=== PATIENT | female | born 1980 | race Caucasian/White ===

== ENCOUNTER 2017-11-16 20:21 | Emergency (ER) | payer BC, SELFPAY ==
[2017-11-16 20:22] VITALS: BP 121/67; PULSE 90; RESP 20; TEMP 36.2; O2SAT 96; BMI 29.2
--- NOTE | 2017-11-16 22:05 | NURSING ---
2131 PT APPROACHED THE TRIAGE DESK AND SPOKE WITH THIS RN. SHE STATED SHE WAS STARTING TO FEEL BETTER AND WAS ABLE TO KEEP SOME TEA DOWN. PT ENCOURAGE TO WAIT FOR ED ROOM TO BE EVALUATED BY A DOCTOR. PT STATED SHE WAS JUST GOING TO FOLLOW UP WITH HER PRIMARY CARE DOCTOR IN THE MORNING. PT ENCOURAGED IF CONDITIONED WORSENED OR IF SHE CHANGED HER MIND TO PLEASE COME BACK TO BE EVALUATED SOON POSSIBLE. PT AMBULATED OUT TO CAR.
== END 2017-11-16 21:33 | disposition left against medical advice (07) ==
LOC: ED 22:40
PROVIDERS: Emergency Provider Emergency Medicine; Family Provider Family Medicine; PCP Family Medicine
DX: R11.2 Nausea with vomiting, unspecified (principal)

== ENCOUNTER → 2018-03-23 11:06 | Outpatient (CLI) | payer BC, SELFPAY ==
[2018-03-29 10:49] LABS: HPV Reflexed? NOT INDICATED
== END ==
PROVIDERS: Visit Provider Obstetrics & Gynecology
DX: Z12.4 Encounter for screening for malignant neoplasm of cervix (principal)
CPT/HCPCS: 88175; G0145

== ENCOUNTER → 2019-10-18 07:42 | Outpatient (CLI) | payer BC, SELFPAY ==
--- NOTE | 2019-10-17 17:12 | BI_ITS ---
MAMMOGRAPHY - BILATERAL SCREENING REASON FOR EXAM: Female, 39 years old. Routine annual screening examination. PERTINENT HISTORY: Non-contributory. Bilateral breast implants. TECHNIQUE: Digital bilateral breast will (3D mammographic acquisition) in the CC and MLO projections. 2-D mediolateral oblique (MLO) and craniocaudad (CC) views of both breasts were obtained. CAD: Full Field Digital Mammography with Computer Added Detection was performed. COMPARISON: None. Baseline examination. FINDINGS: Breast Composition: The breasts are heterogeneously dense, which may obscure small masses. There are no dominant masses or suspicious calcifications. Bilateral breast implants are seen. No other significant abnormalities are identified. BI/SCREEN MAMM (CAD) W/WILL BILAT IMPRESSION: Negative screening mammogram. Yearly followup mammogram recommended. (A) ASSESSMENT CATEGORY: BIRADS Category 2: Benign. A letter regarding these results will be sent to the patient by the facility within 30 days. Approximately 10% of breast cancers are not detected by mammography. A normal mammogram should not delay biopsy of a clinically suspicious abnormality. [id number] Electronically Signed: Kenny Veliz, at 8:45 EST , Service support ,
== END ==
PROVIDERS: Family Provider Family Medicine; PCP Family Medicine; Referring Provider Obstetrics & Gynecology; Visit Provider Obstetrics & Gynecology
DX: Z12.31 Encounter for screening mammogram for malignant neoplasm of breast (principal)
CPT/HCPCS: 77063; 77067

== ENCOUNTER → 2020-09-23 | Outpatient (CLI) | payer BC, SELFPAY ==
[2020-09-26 03:06] LABS: Chlamydia By Nucleic Acid AMP Negative (Negative)
[2020-09-26 12:32] LABS: Gonococcus By Nucleic Acid AMP Negative (Negative)
[2020-09-26 12:36] LABS: HPV Reflexed? NOT INDICATED
[2020-09-27 06:08] LABS: HSV 1 By PCR Negative (Negative)
[2020-09-27 07:47] LABS: HSV 2 By PCR Negative (Negative)
== END | disposition home or self-care (01) ==
LOC: LABSPEC 13:48
PROVIDERS: PCP Family Medicine; Visit Provider Student in an Organized Health Care Education/Training Program
DX: Z12.4 Encounter for screening for malignant neoplasm of cervix (principal); Z11.3 Encounter for screening for infections with a predominantly sexual mode of transmission; R30.0 Dysuria
CPT/HCPCS: 87086; 87088; 87491; 87529; 87591; 88175; G0145

== ENCOUNTER → 2020-10-10 | Outpatient (CLI) | payer BC, SELFPAY | END | disposition home or self-care (01) | LOC: LABSPEC 17:03 | PROVIDERS: PCP Family Medicine; Visit Provider Obstetrics & Gynecology | DX: R30.0 Dysuria (principal) | CPT/HCPCS: 87086; 87088; 87186 ==

== ENCOUNTER 2020-10-12 19:16 | Emergency (ER) | payer BC, SELFPAY ==
[2020-10-12 19:16] VITALS: BP 116/73; PULSE 91; RESP 20; TEMP 36.6; O2SAT 98; BMI 26.6
--- NOTE | 2020-10-12 19:31 | CT_ITS ---
STUDY: CT ABDOMEN AND PELVIS WITHOUT CONTRAST REASON FOR EXAM: Female, 40 years old. RT FLANK PAIN/DYSURIA/FREQUENCY/BEING TREATED FOR UTI. Hx of kidney stones RADIATION DOSAGE (If Supplied By Facility): CTDIvol = ( 6.23 ) mGy, DLP = ( 287.73 ) mGycm TECHNIQUE: Transaxial images were obtained from the dome of the diaphragm to the symphysis pubis without oral contrast, and without intravenous contrast. Sagittal and coronal images were reconstructed. Individualized dose optimization techniques were used for this CT. COMPARISON: 02/24/2015. FINDINGS: Left lower lobe granuloma. Lung bases are otherwise clear. Heart size is normal. The liver is unremarkable. The gallbladder is unremarkable. The spleen and pancreas are unremarkable. The adrenal glands are normal. Normal left kidney. Effacement of normal right renal sinus fat may indicate trace hydronephrosis. Trace perinephric stranding. The right kidney is otherwise unremarkable. Trace right hydroureter. No obstructing stone is seen. The aorta is normal in caliber. There is no free fluid, free air or organized collection. No bowel obstruction or inflammatory change. Normal appendix. Urinary bladder is unremarkable. Hyperdensities inferior to the bladder, question hemorrhagic vaginal cysts. Normal abdominal wall. Normal osseous structures. CT/Abdomen/Pelvis without Cont IMPRESSION: 1. Trace right hydroureteronephrosis without demonstrated stone. Consider small, nonopaque or passed stone. 2. Mild hyperdense lesions inferior to the bladder, uncertain etiology. Question complex vaginal cysts. Correlate with pelvic examination. These lesions are not likely to be readily demonstrated on ultrasound. Electronically Signed: Melly Kaur MD at 20:46 EST Tel , Service support ,
--- NOTE | 2020-10-12 19:33 | ED.DCSUM_ITS ---
History of Present Illness Chief Complaint: Complaint Informant: Patient Onset: Weeks Context: Gradual Onset Current Severity: Moderate Maximum Severity: Moderate Narrative: Patient presents with a 3-week history of dysuria and frequency that has now progressed into right flank pain. She states when she first got sick her urinalysis did not reveal any infection. She was seen again for repeat urinalysis 2 days ago which did reveal UTI and she was started on nitrofurantoin and Pyridium. Patient presents tonight stating that she has had very minimal if any improvement. - Past Medical History (1) Anxiety Status: Chronic (2) Colitis Status: Resolved Comment: Status post colonoscopy, nonspecific, suspected ischemic due to episodes of hypotension Past Medical History - Allergies and Home Meds Allergies/Adverse Reactions: Allergies garlic Allergy (Verified 10/12/20 19:19) Swelling Primary Care Physician: Rusty Wilkerson MD [Primary Care Provider] - Prior records reviewed: Yes Surgical History: - - tubal ligation, bilateral breast implants, bladder sling, uterine ablation Smoking Status: Current every day smoker Review of Systems General: Reports: Fever, Subjective Eyes: Denies: Visual changes - bilaterally ENT: Denies: Bilateral ear pain Cardiovascular: Denies: Chest pain Respiratory: Denies: Dyspnea Gastrointestinal: Reports: Abdominal pain - Right flank pain. Denies: Vomiting, Diarrhea Genitourinary: Reports: Dysuria, Frequency Musculoskeletal: Reports: Back pain - Right flank Skin: Denies: Rash Neurological: Denies: Headache Hematologic: Denies: Easy bruising, Easy bleeding Allergy: Denies: Uticaria Physical Exam Vital Signs/Narrative: Vital Signs Temp Pulse Resp BP Pulse Ox 10/12/20 19:16 97.8 F 91 20 H 116/73 98 Inital Vital Signs reviewed: Yes General: Well nourished, Well developed Head: Normocephalic Neck: Supple Cardiovascular: Regular rate, Regular rhythm Respiratory: No distress, CTA bilaterally Abdomen: Soft, Tender - Mild suprapubic tenderness. Back: CVA tenderness - Moderate right CVA tenderness. Extremities: Nontender Skin: Normal color Neurological: Alert, Oriented x3 Psychological: - - Anxious Diagnostic/Tx/Re-eval Impressions Abdomen/Pelvis CT 10/12/20 19:31 IMPRESSION: 1. Trace right hydroureteronephrosis without demonstrated stone. Consider small, nonopaque or passed stone. 2. Mild hyperdense lesions inferior to the bladder, uncertain etiology. Question complex vaginal cysts. Correlate with pelvic examination. These lesions are not likely to be readily demonstrated on ultrasound. Electronically Signed: Melly Kaur MD at 20:46 EST Tel , Service support , 10/12/20 19:31 Abdomen/Pelvis without Cont [CT] Stat Laboratory Results 10/12/20 10/12/20 10/12/20 19:25 19:25 19:44 WBC 10.6 RBC 3.61 L Hgb 11.1 L Hct 32.3 L MCV 89.5 MCH 30.7 MCHC 34.4 RDW Std Deviation 40.7 RDW Coeff of Marian 12.3 Plt Count 240 MPV 10.0 Immature Gran % (Auto) 0.300 Neut % (Auto) 83.3 H Lymph % (Auto) 7.9 L [place] % (Auto) 8.0 Eos % (Auto) 0.3 Baso % (Auto) 0.2 Absolute Neuts (auto) 8.8 H Absolute Lymphs (auto) 0.83 Nucleated RBC % 0 Sodium Potassium Chloride Carbon Dioxide Anion Gap BUN Creatinine Estim Creat Clear Calc Est GFR (MDRD) Af Amer Est GFR (MDRD) Non-Af BUN/Creatinine Ratio Glucose Calcium Urine Color Breanna Urine Clarity Clear Urine pH 7.0 Ur Specific [place] 1.005 Urine Protein 30 H Urine Glucose (UA) Normal Urine Ketones Negative Urine Occult Blood 50 H Urine Nitrite Positive H Urine Bilirubin 6 H Urine Urobilinogen 12 H Ur Leukocyte Esterase 500 H Urine RBC 0 SEEN Urine WBC 0-5 SEEN Ur Squamous Epith Cells 5-10 SEEN Urine Bacteria RARE Urine Mucus 0 SEEN Urine Test Negative 10/12/20 19:44 WBC RBC Hgb Hct MCV MCH MCHC RDW Std Deviation RDW Coeff of Marian Plt Count MPV Immature Gran % (Auto) Neut % (Auto) Lymph % (Auto) Stone % (Auto) Eos % (Auto) Baso % (Auto) Absolute Neuts (auto) Absolute Lymphs (auto) Nucleated RBC % Sodium 138 Potassium 3.1 L Chloride 105 Carbon Dioxide 25.0 Anion Gap 8 BUN 7 Creatinine 0.79 Estim Creat Clear Calc 67.31 Est GFR (MDRD) Af Amer 103 Est GFR (MDRD) Non-Af 85 BUN/Creatinine Ratio 8.8 L Glucose 123 H Calcium 8.8 Urine Color Urine Clarity Urine pH Ur Specific [place] Urine Protein Urine Glucose (UA) Urine Ketones Urine Occult Blood Urine Nitrite Urine Bilirubin Urine Urobilinogen Ur Leukocyte Esterase Urine RBC Urine WBC Ur Squamous Epith Cells Urine Bacteria Urine Mucus Urine Test - Medical Decision Making Patient was given morphine and Zofran along with a liter of IV fluids. Blood work is reviewed with her. Potassium is slightly low at 3.1 and this is replaced orally. Urinalysis does still show signs of infection. CT flank reveals trace hydroureteronephrosis on the right without a demonstrated stone. There is trace perinephric stranding. I think this likely represents pyelonephritis rather than a recently passed kidney stone. The urine culture from the is reviewed. Well nitrofurantoin should work for her infection, this is not appropriate for pyelonephritis treatment. She will be switched to ciprofloxacin as she does have a Bactrim allergy. She be given a dose of IV Rocephin in the emergency room tonight for treatment. ED Disposition - Plan for ED Patient: Disposition: Home or Assisted Living Diagnosis: Pyelonephritis Instructions: ED Pyelonephritis, Female (Adult) Prescriptions: Ciprofloxacin [Cipro] 500 mg PO BID #14 tab Transmission Status: Pending to [facility] Hydrocodone Bitart/Apap 5-325 [[place] 5MG-325MG] 1 tablet PO Q6H PRN PRN 3 Days #10 tablet PRN Reason: Pain Transmission Status: Sent to [facility] Referrals: Rusty Wilkerson MD [Primary Care Provider] - 3-5 Days if not improving
[2020-10-12 19:41] LABS: Internal QC Validated? YES +Cl - CLEAR BKGD; Pregnancy, Urine Negative Negative
[2020-10-12] MEDS: Ondansetron 4 MG/2 ML Vial IV (19:44)
[2020-10-12] MEDS: Morphine 4 MG/ML Syringe IV (19:44)
[2020-10-12] MEDS: 0.9% Normal Saline 1,000 ML 1000 ML IV (19:44)
[2020-10-12 19:45] LABS: Mucous, Urine 0 SEEN /hpf (<or=2+); Red Blood Cells-Urine 0 SEEN /hpf (0-5)
[2020-10-12 19:47] LABS: Color, Urine Amber (Yellow); Glucose, Dipstick Normal (Normal); Ketone-Dipstick Negative (Negative); Leukocyte Esterase-Dipstick 500 /ul (Negative); Nitrite-Dipstick Positive (Negative); Occult Blood-Urine 50 /ul (Negative); Protein-Dipstick 30 mg/dl (Negative); Specific Gravity, Urine 1.005 (1.002-1.030); Urine Clarity Clear (Clear); Urine Urobilinogen 12 mg/dl (Normal)
[2020-10-12 19:49] LABS: Absolute Lymphocyte Count 0.83 X10^3/uL (0.83-4.51); Absolute Neutrophil Count 8.8 X10^3/uL (2.0-7.7); Basophil# 0.02 X10^3/uL; Basophil% 0.2 % (0-1); Eosinophil# 0.03 X10^3/uL; Eosinophils% 0.3 % (0-5); Hematocrit 32.3 % (37-47); Hemoglobin 11.1 g/dL (12.0-15.0); Lymphocyte # 0.83 X10^3/ul (4.0); Lymphocyte % 7.9 % (19-41); Mean Corp Hgb Conc 34.4 g/dL (32-36); Mean Corpuscular Hgb 30.7 pg (27.0-32.0); Mean Corpuscular Volume 89.5 fL (81-99); Monocyte# 0.84 X10^3/uL; NRBC Flagged by Analyzer 0 % (0-5); Neutrophil # 8.81 X10^3/uL (2.7-7.7); Neutrophil % 83.3 % (47-70); Platelet Count 240 K/mm3 (150-450); RBC Distribution Width CV 12.3 % (11.6-14.6); RBC Distribution Width SD 40.7 fl (35.1-43.9); Red Blood Count 3.61 M/mm3 (4.2-5.4); White Blood Count 10.6 K/mm3 (4.4-11.0)
[2020-10-12 19:49] LABS: Urine Bilirubin Dipstick 6 mg/dL (Negative)
[2020-10-12 19:56] LABS: Bacteria RARE /hpf (None Seen); Squamous Epithelial Cells - UA 5-10 SEEN /hpf (5-10); White Blood Cells 0-5 SEEN /hpf (0-5)
[2020-10-12 20:04] LABS: Anion Gap 8 (5-15); BUN 7 mg/dL (7-18); BUN/Creat Ratio 8.8 RATIO (10-20); Calcium,Total 8.8 mg/dL (8.5-10.1); Chloride 105 mmol/L (98-107); Creatinine, Serum 0.79 mg/dL (0.55-1.02); EST Glomerular Filtration Rate 85 mL/min (>60); Est Glom Filt Rate - Afr Amer 103 mL/min (>60); Estimated Creatinine Clearance 67.31 ml/min; Glucose 123 mg/dL (74-106); Potassium 3.1 mmol/L (3.5-5.1); Sodium Level 138 mmol/L (136-145)
[2020-10-12] MEDS: Ceftriaxone 1 GM/50 ML BAG IV (20:59)
[2020-10-12] MEDS: HYDROcodone Bitartrate/Apap 5/325 Tablet PO (21:35)
[2020-10-12 21:39] VITALS: BP 105/63; PULSE 76; RESP 16; O2SAT 96
== END 2020-10-12 21:57 | disposition home or self-care (01) ==
PROVIDERS: Emergency Provider Emergency Medicine; PCP Family Medicine
DX: N12 Tubulo-interstitial nephritis, not specified as acute or chronic (principal); N13.6 Pyonephrosis; E87.6 Hypokalemia; F41.9 Anxiety disorder, unspecified; F17.200 Nicotine dependence, unspecified, uncomplicated; Z79.899 Other long term (current) drug therapy
CPT/HCPCS: 74176; 80048; 81001; 81025; 85025; 96361; 96365; 96375; 99283; J7030; J7050; A4216; J2405

== ENCOUNTER → 2020-10-21 07:01 | Outpatient (CLI) | payer BC, SELFPAY ==
[2020-10-12 19:16] VITALS: BMI 26.6
--- NOTE | 2020-10-21 07:04 | BI_ITS ---
MAMMOGRAPHY - BILATERAL SCREENING REASON FOR EXAM: Female, 40 years old. Routine annual screening examination. PERTINENT HISTORY: Non-contributory. Bilateral breast implants. TECHNIQUE: Digital bilateral breast will (3D mammographic acquisition) in the CC and MLO projections. 2-D mediolateral oblique (MLO) and craniocaudad (CC) views of both breasts were obtained. CAD: Full Field Digital Mammography with Computer Added Detection was performed. COMPARISON: Comparison is made with prior study dated 10/17/2019 FINDINGS: Breast Composition: The breasts are heterogeneously dense, which may obscure small masses. There are no dominant masses or suspicious calcifications. Stable benign-appearing breast implants. No other significant abnormalities are identified. There has been no significant change since the prior study. BI/SCRN MAMM (CAD)W/WILL BILAT IMPRESSION: Stable bilateral screening mammogram. Yearly follow-up mammogram recommended. (A) ASSESSMENT CATEGORY: BIRADS Category 2: Benign. A letter regarding these results will be sent to the patient by the facility within 30 days. Approximately 10% of breast cancers are not detected by mammography. A normal mammogram should not delay biopsy of a clinically suspicious abnormality. [id number] Electronically Signed: Kenny Veliz MD at 8:13 EST , Service support ,
== END ==
PROVIDERS: PCP Family Medicine; Referring Provider Student in an Organized Health Care Education/Training Program; Visit Provider Student in an Organized Health Care Education/Training Program
DX: Z12.31 Encounter for screening mammogram for malignant neoplasm of breast (principal)
CPT/HCPCS: 77063; 77067

== ENCOUNTER 2021-06-19 01:03 | Emergency (ER) | payer BC, SELFPAY ==
[2021-06-19 01:04] VITALS: BP 122/78; PULSE 75; RESP 20; TEMP 36.6; O2SAT 100; BMI 26.9
--- NOTE | 2021-06-19 01:12 | RAD_ITS ---
STUDY: X-RAY CHEST REASON FOR EXAM: Female, 41 years old. cp TECHNIQUE: Single AP portable view of the chest. COMPARISON: 09/04/2013. FINDINGS: There are no confluent pulmonary infiltrates. There is mild interstitial prominence in the mid and lower lung allen with bronchial wall thickening. There is no demonstrated pleural abnormality. Normal size heart. Normal mediastinum and viktoriya. Normal visualized aortic arch and descending thoracic aorta. There are no demonstrated acute fractures or destructive bone lesions. There is no demonstrated abnormality of the visualized soft tissue structures of the upper abdomen. RAD/Chest 1 View (Portable) IMPRESSION: Mild interstitial prominence with bronchial wall thickening bilaterally. No demonstrated pulmonary consolidation. Electronically Signed: Gilmer Trivedi MD at 2:22 EDT , Service support ,
--- NOTE | 2021-06-19 01:13 | EKG12_ITS ---
Test Reason : CP Blood Pressure : / mmHG Vent. Rate : 074 BPM Atrial Rate : 074 BPM P-R Int : 162 ms QRS Dur : 090 ms QT Int : 392 ms P-R-T Axes : 052 061 065 degrees QTc Int : 435 ms Normal sinus rhythm Normal ECG Confirmed by HARIKA CASTRO, ARNAUD ([id number]), assignment desk editor HARVINDER JIMÉNEZ ([id number]) on 06/20/2021 1:20:42 PM Referred By: FRANCIS Confirmed By:JACOB SHABAZZ MD
--- NOTE | 2021-06-19 01:14 | EX.ED.DYSGE1 ---
HPI History of Present Illness Chief Complaint: Chest Pain Informant: patient Onset/Context/Timing Onset: Hours (3-hour) Context: Sudden Onset Current Severity: Severe Maximum Severity: Severe Narrative Narrative: Patient presents with 3-hour history of lower sternal/epigastric pain. Patient states the pain is sharp and constant pressure that radiates through to her back. She does feel short of breath. She reports pain was rather sudden onset that occurred about 3 hours after she last ate. She denies similar symptoms. [facility] Medical History Abnormal Pap smear of cervix Anxiety Released Bladder Sling (~2014) Home Medications bupropion HCl 300 mg PO DAILY 09/04/13 [History Last Taken 07/31/15 04:00] epinephrine 0.3 mg IM PRN PRN 09/04/13 [History Last Taken 04/18/15 0.3 MG] paroxetine HCl [Paxil] 60 mg PO DAILY 09/04/13 [History Last Taken 07/31/15 04:00] hydrocodone-acetaminophen 1 tab PO Q6H PRN 3 Days #10 tab 06/19/21 [Rx Last Taken Unknown] metoclopramide HCl [Reglan] 10 mg PO Q6H PRN #10 tab 06/19/21 [Rx Last Taken Unknown] omeprazole magnesium [Prilosec OTC] 20 mg PO DAILY #20 tab 06/19/21 [Rx Last Taken Unknown] Allergy/AdvReac Type Severity Reaction Status Date / Time garlic Allergy Swelling Verified 06/19/21 01:07 Family History Mother Colon cancer Surgical History H/O dilation and curettage (~05/24/14) H/O LEEP (~01/29/09) H/O tubal ligation (~03/2004) Social History adopted: No household members: family housing: house number of children: 3 current occupational status: employed current occupation: [employer] Smoking Status: Current every day smoker tobacco type: cigarettes additional social history: Eric (retired) ROS ROS ED Constitutional Constitutional ED: Denies chills or fever(s) Eyes Eyes: Denies change in vision ENT ENT ED: Denies sore throat Cardiovascular Cardiovascular: Reports chest pain Respiratory/Chest Respiratory/Chest: Reports dyspnea; Denies cough Gastrointestinal Gastrointestinal: Reports abdominal pain; Denies diarrhea, nausea or vomiting Genitourinary Genitourinary ED: Denies dysuria Musculoskeletal Musculoskeletal: Reports back pain Integumentary Denies rash Neurologic Neurologic: Denies headache(s) or weakness Allergic/Immunologic Allergic/Immunologic ED: Denies urticaria EXAM Physical Exam Const Vital Signs: 06/19/21 01:04 06/19/21 01:09 06/19/21 02:46 Temperature 98 F Temperature Source Oral Pulse Rate 75 88 Respiratory Rate 20 H 16 Respiratory Effort Normal Non-Labored Blood Pressure 122/78 H 122/76 H Blood Pressure Mean 92 91 Pulse Ox 100 98 Oxygen Delivery Method Room Air Room Air 06/19/21 03:33 06/19/21 04:13 Temperature Temperature Source Pulse Rate 85 75 Respiratory Rate 14 12 Respiratory Effort Blood Pressure 149/78 H 121/78 H Blood Pressure Mean 101 92 Pulse Ox 97 95 Oxygen Delivery Method Room Air Room Air Positive well nourished and well developed General Appearance ED: well developed HEENT Reports normocephalic and head/scalp atraumatic Eyes PERRL and EOMs intact bilaterally Neck supple Chest Wall inspection of chest normal and palpation of chest normal Resp normal respiratory effort and clear to auscultation bilaterally Cardio regular rate and regular rhythm GI Auscultation: hypoactive bowel sounds Palpation: tender epigastric and RUQ Extremity normal to inspection Neuro oriented x3 and no sensory deficits noted Sensorium / Orientation: alert Motor Exam: strength 5/5 throughout Psych Mood & Affect: anxious Skin no rashes or lesions noted MDM MDM MDM Narrative Medical decision making narrative: EKG, chest x-ray, lab work obtained. Patient was given morphine and Zofran for pain control. Lab Data Attestation: I reviewed the patient's lab results. Labs: Laboratory Results - last 24 hr 06/19/21 06/19/21 06/19/21 01:19 01:19 01:19 WBC 13.7 H RBC 4.45 Hgb 13.9 Hct 40.3 MCV 90.6 MCH 31.2 MCHC 34.5 RDW Std Deviation 40.0 RDW Coeff of Marian 12.1 Plt Count 259 MPV 10.5 Immature Gran % (Auto) 0.300 Neut % (Auto) 75.2 H Lymph % (Auto) 19.9 [place] % (Auto) 4.1 Eos % (Auto) 0.3 Baso % (Auto) 0.2 Absolute Neuts (auto) 10.3 H Absolute Lymphs (auto) 2.74 Nucleated RBC % 0 D-Dimer Quant (PE/DVT) 0.41 Sodium 138 Potassium 3.6 Chloride 107 Carbon Dioxide 25.0 Anion Gap 6 BUN 15 Creatinine 0.86 Estim Creat Clear Calc 61.21 Est GFR (MDRD) Af Amer 93 Est GFR (MDRD) Non-Af 77 BUN/Creatinine Ratio 17.4 Glucose 121 H Lactic Acid Calcium 9.2 Total Bilirubin 0.40 Direct Bilirubin 0.20 AST 379 H ALT 130 H Alkaline Phosphatase 117 Troponin I High Sens 4 Total Protein 7.5 Albumin 3.5 Globulin 4.0 Lipase 141 Serum , Qual 06/19/21 06/19/21 01:19 02:40 WBC RBC Hgb Hct MCV MCH MCHC RDW Std Deviation RDW Coeff of Marian Plt Count MPV Immature Gran % (Auto) Neut % (Auto) Lymph % (Auto) [place] % (Auto) Eos % (Auto) Baso % (Auto) Absolute Neuts (auto) Absolute Lymphs (auto) Nucleated RBC % D-Dimer Quant (PE/DVT) Sodium Potassium Chloride Carbon Dioxide Anion Gap BUN Creatinine Estim Creat Clear Calc Est GFR (MDRD) Af Amer Est GFR (MDRD) Non-Af BUN/Creatinine Ratio Glucose Lactic Acid 1.7 Calcium Total Bilirubin Direct Bilirubin AST ALT Alkaline Phosphatase Troponin I High Sens Total Protein Albumin Globulin Lipase Serum , Qual NEGATIVE Radiography Chest X-Ray - ED: 1 View, Read by ED Physician, Normal, Heart, Lungs and Mediastinum Diagnostic Testing: Radiology Impression Chest X-Ray 06/19/21 01:12 IMPRESSION: Mild interstitial prominence with bronchial wall thickening bilaterally. No demonstrated pulmonary consolidation. Electronically Signed: Gilmer Trivedi MD at 2:22 EDT , Service support , Abdomen/Pelvis CT 06/19/21 02:00 IMPRESSION: 1.8 cm left adrenal nodule with indeterminate attenuation characteristics. There is no definite increase in size over the last 9 months, although there is increase in size compared to the 2015 exam. I would suggest follow-up exam in one year with adrenal protocol MRI or adrenal protocol CT scan. Previous tubal ligation. No evidence for acute pathology. Electronically Signed: Gilmer Trivedi MD at 3:32 EDT , Service support , ADDENDUM: 06/19/21 0441 IMPRESSION: Area of narrowing in the distal body the stomach probably represents a peristaltic wave rather than a stricture. Regardless, it is nonobstructive and is unlikely to contribute to the patient''s acute symptoms. Upper GI series might be used to confirm against fixed lesion, clinically warranted. No evidence for obstruction at the level of the pylorus. Distention of the stomach may be due to rapid consumption of a large meal prior to the exam. Possibility of gastroparesis cannot be excluded. Electronically Signed: Gilmer Trivedi MD at 4:34 EDT , Service support , EKG Initial EKG: Attestation: I personally reviewed and interpreted this EKG as follows: Interpretation: Sinus Rhythm (Sinus at 74 with no acute ischemia.) Treatment and Re-Evaluation Comments:: Portable chest x-ray per my interpretation is unremarkable. EKG reveals no ischemia. Lab work reveals mildly elevated white count at 13.7. D-dimer normal. Troponin negative. AST and ALT are elevated, but alk phos, bilirubins are normal. Lipase is normal. CT scan with IV contrast of the abdomen and pelvis obtained. The initial read on this reveals an adrenal nodule unchanged over the last 9 months. No other acute finding noted. When I reviewed the CT images her stomach appeared to be very distended and still full of material when patient states that she last ate approximately 8 hours prior to the study being done. There did appear to be some narrowing coming out of the stomach. We did ask for a addendum to be done on this. Radiologist feels that this area of narrowing represents peristalsis that was caught on the CT image. There is no wall thickening or edema to suggest acute mass or obstruction. This was all discussed with the patient at length. Pain is significantly improved at this time. Patient will have hepatitis panel drawn and discharged home. Return instructions provided. Patient is referred to GI for follow-up. Discharge Plan Triage Chief Complaint: Chest Pain ED Provider: Nettie Millan Dx/Rx/DC Orders Clinical Impression: Abdominal pain, epigastric, Transaminitis Instructions: ED Epigastric Pain Uncertain Cause Prescriptions: New hydrocodone-acetaminophen 5-325 mg tablet 1 tab PO Q6H PRN (Reason: pain) 3 Days Qty: 10 RF: 0 metoclopramide HCl [Reglan] 10 mg tablet 10 mg PO Q6H PRN (Reason: nausea and vomiting) Qty: 10 RF: 0 omeprazole magnesium [Prilosec OTC] 20 mg tablet,delayed release (DR/EC) 20 mg PO DAILY Qty: 20 RF: 0 No Action epinephrine 0.3 MG syringe 0.3 mg IM PRN PRN (Reason: Anaphylaxis) RF: 0 paroxetine HCl [Paxil] 40 MG tablet 60 mg PO DAILY RF: 0 bupropion HCl 300 MG tablet extended release 24 hr 300 mg PO DAILY RF: 0 Primary Care Provider: Rusty Wilkerson Referrals: Stone Sweeney DO [STAFF PHYSICIAN] - 1-2 Weeks Rusty Wilkerson MD [Primary Care Provider] - Disposition Disposition: Home, Self Care
[2021-06-19] MEDS: Ondansetron 4 MG/2 ML Vial IV (01:26)
[2021-06-19] MEDS: 0.9% Normal Saline 1,000 ML 150 ML IV (01:26)
[2021-06-19] MEDS: Morphine 4 MG/ML Syringe IV (01:27)
[2021-06-19 01:34] LABS: Absolute Lymphocyte Count 2.74 X10^3/uL (0.83-4.51); Absolute Neutrophil Count 10.3 X10^3/uL (2.0-7.7); Basophil# 0.03 X10^3/uL; Basophil% 0.2 % (0-1); Eosinophil# 0.04 X10^3/uL; Eosinophils% 0.3 % (0-5); Hematocrit 40.3 % (37-47); Hemoglobin 13.9 g/dL (12.0-15.0); Lymphocyte # 2.74 X10^3/ul (0.83-4.51); Lymphocyte % 19.9 % (19-41); Mean Corp Hgb Conc 34.5 g/dL (32-36); Mean Corpuscular Hgb 31.2 pg (27.0-32.0); Mean Corpuscular Volume 90.6 fL (81-99); Mean Platelet Vol. 10.5 fl (6.2-12.0); Monocyte# 0.56 X10^3/uL; Monocyte% 4.1 % (0-10); NRBC Flagged by Analyzer 0 % (0-5); Neutrophil # 10.33 X10^3/uL (2.7-7.7); Neutrophil % 75.2 % (47-70); Platelet Count 259 K/mm3 (150-450); RBC Distribution Width CV 12.1 % (11.6-14.6); Red Blood Count 4.45 M/mm3 (4.2-5.4); White Blood Count 13.7 K/mm3 (4.4-11.0)
[2021-06-19 01:44] LABS: Internal QC Validated? YES +Cl - CLEAR BKGD; Pregnancy, Serum, hCG Quali. NEGATIVE Negative
[2021-06-19 01:46] LABS: D-Dimer Quantitative (DVT/PE) 0.41 FEU/ug/m (0.27-0.49)
[2021-06-19 01:55] LABS: AST(SGOT) 379 U/L (15-37); Alanine Aminotransfer ALT/SGPT 130 U/L (13-56); Albumin, Serum 3.5 g/dL (3.2-5.0); Alkaline Phosphatase 117 U/L (45-117); Anion Gap 6 (5-15); BUN 15 mg/dL (7-18); BUN/Creat Ratio 17.4 RATIO (10-20); Calcium,Total 9.2 mg/dL (8.5-10.1); Chloride 107 mmol/L (98-107); Creatinine, Serum 0.86 mg/dL (0.55-1.02); EST Glomerular Filtration Rate 77 mL/min (>60); Est Glom Filt Rate - Afr Amer 93 mL/min (>60); Estimated Creatinine Clearance 61.21 ml/min; Glucose 121 mg/dL (74-106); Lipase 141 U/L (73-393); Potassium 3.6 mmol/L (3.5-5.1); Protein, Total 7.5 g/dL (6.4-8.2); Sodium Level 138 mmol/L (136-145); Troponin-I HS 4 pg/mL (3.0-54.0)
--- NOTE | 2021-06-19 02:00 | CT_ITS ---
STUDY: CT ABDOMEN AND PELVIS WITH CONTRAST REASON FOR EXAM: Female, 41 years old. abd pain RADIATION DOSAGE (If Supplied By Facility): CTDIvol = ( 11.61 ) mGy, DLP = ( 639.05 ) mGycm TECHNIQUE: Transaxial images were obtained from the dome of the diaphragm to the symphysis pubis without oral contrast. IV 100mL [id number]-[id number] was administered. Sagittal and coronal images were reconstructed. Individualized dose optimization techniques were used for this CT. COMPARISON: CT scan 10/12/2020. 02/24/2015. FINDINGS: The visualized lung bases are unremarkable. The visualized portions of the heart are within normal limits. There are bilateral breast implants. Normal liver. Normal gallbladder and extrahepatic biliary system. Normal spleen. Normal pancreas. Normal right adrenal gland. There is a 1.8 cm left adrenal nodule with indeterminate attenuation characteristics. This is not significantly changed in size from the September 2020 exam, but has substantially increased in size since 2014.. Normal right kidney. Normal left kidney. Normal visualized stomach. Normal small intestine. Normal colon. The appendix is visualized on axial images 71-80 and it appears normal.. Normal abdominal aorta. Normal inferior vena cava. Normal retroperitoneum. Normal urinary bladder. There are tubal ligation clips. There is a 1.4 cm right ovarian follicular cyst, for which no further evaluation is advised. Normal abdominal wall. Normal osseous structures. CT/Abdomen/Pelvis W IV Cont ONLY IMPRESSION: 1.8 cm left adrenal nodule with indeterminate attenuation characteristics. There is no definite increase in size over the last 9 months, although there is increase in size compared to the 2014 exam. I would suggest follow-up exam in one year with adrenal protocol MRI or adrenal protocol CT scan. Previous tubal ligation. No evidence for acute pathology. Electronically Signed: Gilmer Trivedi MD at 3:32 EDT , Service support ,
[2021-06-19 02:46] VITALS: BP 122/76; PULSE 88; RESP 16; O2SAT 98
[2021-06-19 03:33] VITALS: BP 149/78; PULSE 85; RESP 14; O2SAT 97
[2021-06-19 03:43] LABS: Lactic Acid 1.7 mmol/L (0.4-1.9)
[2021-06-19 04:13] VITALS: BP 121/78; PULSE 75; RESP 12; O2SAT 95
[2021-06-19 05:26] VITALS: BP 108/79; PULSE 75; RESP 22; O2SAT 96
[2021-06-22 09:07] LABS: HEPATITIS B SURFACE AG Negative (Negative); Hepatitis A IgM Antibody Negative (Negative); Hepatitis B Core AB IgM Negative (Negative)
[2021-06-22 10:33] LABS: Hep C Antibodies <0.1 s/co ratio (0.0-0.9)
== END 2021-06-19 05:28 | disposition home or self-care (01) ==
PROVIDERS: Emergency Provider Emergency Medicine; PCP Family Medicine
DX: R07.9 Chest pain, unspecified (principal); R10.13 Epigastric pain; R74.01 Elevation of levels of liver transaminase levels; R06.02 Shortness of breath; R06.00 Dyspnea, unspecified; F41.9 Anxiety disorder, unspecified; F17.210 Nicotine dependence, cigarettes, uncomplicated; Z79.899 Other long term (current) drug therapy
CPT/HCPCS: 71045; 74177; 80048; 80074; 80076; 83605; 83690; 84484; 84703; 85025; 85379; 93005; 96361; 96374; 96375; 99284; J7030; Q9967; A4216; J2405

== ENCOUNTER 2021-10-13 09:19 | Outpatient (CLI) | payer OTHER, SELFPAY ==
[2021-10-13 10:23] LABS: NATERA MAILED SPECIMEN
[2021-10-13 10:57] LABS: HIV - WCH Non-Reactive (Nonreactive)
[2021-10-15 19:07] LABS: HCV Quant. RNA PCR HCV Not Detected IU/mL (.)
[2021-10-15 20:21] LABS: HSV 1 IgG < 0.91 index (0.00-0.90); HSV 2 IgG < 0.91 index (0.00-0.90)
[2021-10-16 00:07] LABS: Chlamydia By Nucleic Acid AMP Negative (Negative)
[2021-10-16 08:40] LABS: Gonococcus By Nucleic Acid AMP Negative (Negative)
== END 2021-10-13 23:59 | disposition short-term general hospital (02) ==
LOC: LAB 09:21
PROVIDERS: PCP Family Medicine; Referring Provider Obstetrics & Gynecology; Visit Provider Obstetrics & Gynecology
DX: Z12.4 Encounter for screening for malignant neoplasm of cervix (principal); Z11.3 Encounter for screening for infections with a predominantly sexual mode of transmission; N89.8 Other specified noninflammatory disorders of vagina; Z80.3 Family history of malignant neoplasm of breast
CPT/HCPCS: 36415; 86695; 86696; 86703; 87070; 87205; 87491; 87522; 87591; 87624; 88175; G0145

== ENCOUNTER 2021-10-29 07:46 | Outpatient (CLI) | payer OTHER, SELFPAY ==
--- NOTE | 2021-10-29 07:52 | US_ITS ---
STUDY: ULTRASOUND OF THE FEMALE PELVIS - COMPLETE REASON FOR EXAM: Female, 41 years old. Dysmenorrhea LMP: 10/06/2021 TECHNIQUE: Transabdominal and Transvaginal TECHNICAL QUALITY: Adequate. COMPARISON: None. FINDINGS: The uterus is anteverted and is tilted to the left side of the pelvis. The uterus measures 8.6 cm x 4.7 cm x 3.7 cm. There is a Nabothian cyst of the cervix. The endometrium measures 5 mm in thickness, and is hyperechoic. There is no demonstrated endometrial mass. There is no demonstrated myometrial mass. I.U.D. - The patient does not have an I.U.D. The right ovary is visualized. The right ovary measures 2.1 cm x 2 cm x 1.6 cm. There is no right ovarian cyst or ovarian mass. There is no visualized right adnexal mass or complex lesion. There is normal arterial and normal venous vascularity. The left ovary is visualized. The left ovary measures 2.1 cm x 2 cm x 1.1 cm. There is no left ovarian cyst or ovarian mass. There is no visualized left adnexal mass or complex lesion. There is normal arterial and normal venous vascularity. There is no fluid in the cul-de-sac. The pre void volume of the bladder was 415 ml. US/Transvaginal Non- IMPRESSION: Normal female pelvis. Electronically Signed: Kenny Veliz MD at 11:04 EST ,
--- NOTE | 2021-10-29 07:52 | US_ITS ---
STUDY: ULTRASOUND OF THE FEMALE PELVIS - COMPLETE REASON FOR EXAM: Female, 41 years old. Dysmenorrhea LMP: 10/06/2021 TECHNIQUE: Transabdominal and Transvaginal TECHNICAL QUALITY: Adequate. COMPARISON: None. FINDINGS: The uterus is anteverted and is tilted to the left side of the pelvis. The uterus measures 8.6 cm x 4.7 cm x 3.7 cm. There is a Nabothian cyst of the cervix. The endometrium measures 5 mm in thickness, and is hyperechoic. There is no demonstrated endometrial mass. There is no demonstrated myometrial mass. I.U.D. - The patient does not have an I.U.D. The right ovary is visualized. The right ovary measures 2.1 cm x 2 cm x 1.6 cm. There is no right ovarian cyst or ovarian mass. There is no visualized right adnexal mass or complex lesion. There is normal arterial and normal venous vascularity. The left ovary is visualized. The left ovary measures 2.1 cm x 2 cm x 1.1 cm. There is no left ovarian cyst or ovarian mass. There is no visualized left adnexal mass or complex lesion. There is normal arterial and normal venous vascularity. There is no fluid in the cul-de-sac. The pre void volume of the bladder was 415 ml. US/Pelvic (Non ) IMPRESSION: Normal female pelvis. Electronically Signed: Kenny Veliz MD at 11:04 EST ,
== END 2021-10-29 23:59 | disposition short-term general hospital (02) ==
PROVIDERS: PCP Family Medicine; Referring Provider Obstetrics & Gynecology; Visit Provider Obstetrics & Gynecology
DX: N94.6 Dysmenorrhea, unspecified (principal)
CPT/HCPCS: 76830; 76856

== ENCOUNTER 2021-10-31 06:32 | Day surgery (SDC) | payer OTHER, SELFPAY ==
--- NOTE | 2021-10-31 06:44 | HP.PCM_ITS ---
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 Required: No Is patient in pain?: No Allergies garlic Allergy (Verified 10/27/21 07:51) Swelling Medications bupropion HCl 300 mg PO DAILY 09/04/13 [History Confirmed 10/27/21] epinephrine 0.3 mg IM PRN PRN 09/04/13 [History Confirmed 10/27/21] paroxetine HCl [Paxil] 60 mg PO DAILY 09/04/13 [History Confirmed 10/27/21] dupilumab 300 mg/2 mL subcutaneous pen injector 300 mg SUBCUT Q2W 10/13/21 [History Confirmed 10/27/21] PFSH Medical History Abnormal Pap smear of cervix Acute eczema Anxiety Surgical History H/O dilation and curettage (~05/24/14) H/O LEEP (~01/29/09) H/O tubal ligation (~03/2004) Hx of bladder repair surgery Family History (Updated 10/27/21 @ 07:55 by Rehana Wednesday) Mother Colon cancer Grandmother Kidney disease Social History adopted: No household members: family housing: house number of children: 3 current occupational status: employed 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 Patient's last colonoscopy was over 10 years ago. The patient does have a history of colon cancer in her mother at age 52. Patient is not having any abdominal pain or blood in her stool. ROS General General: Yes fatigue; No weight change, appetite, colon cancer, breast cancer or weakness HEENT HEENT: No difficulty swallowing, eye injury, eye surgery, swollen glands or hoarseness Endo Endocrine: No thyroid disease, diabetes mellitus, thyroid cancer, Hair loss, heat intolerance or cold intolerance Skin Skin: No rash or changing moles Musc Musculoskeletal: No back problems, arthritis, rheumatoid arthritis, gout or joint pain Cardio Cardiovascular: No murmur, pacemaker, heart disease, atrial fibrillation, high blood pressure, heart attack, heart stent, palpitations, shortness of breat with exertion or chest pain Psych Psychiatric: Yes depression and anxiety; No hearing voices Resp Respiratory: No shortness of breath, No sleep apnea, No cough, No COPD, No asthma, No emphysema and No wheezing Gastro Gastrointestinal: No abdominal pain, No nausea or vomiting, No diarrhea, No constipation, No blood in stool, No acid reflux, No hemorrhoids, No ulcers, No gallbladder problem and No black,tarry stools Sathya Hematologic: No blood thinners, No blood disorders, No bleeding, No anemia and No blood clots Neuro Neurologic: No system reviewed and no additional complaints, except as documented, No as per HPI, No abnormal gait, No abnormal hearing, No abnormal movements, No abnormal speech, No behavioral changes, No burning sensations, No confusion, No convulsions, No disequilibrium, No dizziness, No localized weakness, No frequent falls, No headache(s), No lack of coordination, No loss of vision, No memory loss, No numbness, No other visual disturbances, No radicular pain, No restless legs, No sensory deficit, No syncope, No tingling, No tremor(s), No weakness and No other Exam Const General: cooperative Orientation: alert and oriented x3 HENMT Head: normal to inspection Neck Neck: normal visual inspection and full ROM Chest Chest palpation & inspection: normal inspection of the chest Resp Effort & Inspection: normal respiratory effort Auscultation: clear to auscultation bilaterally Cardio Rate: regular rate Rhythm: regular rhythm GI Inspection: non-distended Palpation: soft and nontender Skin General: no rashes or lesions noted Neuro General: patient alert and patient oriented x3 Extrem General: full ROM Psych Appearance: grossly normal Mental Status: mental status grossly normal Assessment and Plan Assessment and Plan (1) Screen for colon cancer: Status: Acute (2) Family history of colon cancer: Status: Acute Comment: empower screen ordered Orders: Orders: Colonoscopy Today Z12.11 Plan - Dr. Conner Neff MD: Patient has a family history colon cancer in her mother and under age 60. Patient is overdue for colonoscopy. I recommend the patient have colonoscopy every 5 years. I explained endoscopy in detail to the patient. I explained the risks including but not limited to stroke or heart attack with anesthesia, perforation of the GI tract, bleeding, infection. I explained that any of these could necessitate further emergency surgery. The patient understands and all questions were answered sufficiently. The patient wishes to proceed with procedure. Conner Neff MD Pager: [facility] [address] [place] [address] [address] [place] [address] Office: I have re-examined the patient. There are no clinical changes since date of exam.
[2021-10-31 06:50] VITALS: BP 110/63; PULSE 75; RESP 16; TEMP 36.3; O2SAT 75
[2021-10-31] MEDS: Lactated Ringers 1,000 ML 15 ML IV (06:52)
--- NOTE | 2021-10-31 07:30 | COLBX_PTH ---
PATIENT: MARANDA FLOREZ LOC: EN U#:[id number] AGE/SX: 41/F ROOM: RE10/31/[address]: Dr. Conner Neff MD : 1980 BED: DIS: 10/31/2021 SPEC #: [id number] RECD: 10/31/21 09:17 STATUS: MARGA MCKINNON #: [id number] MAIKOL: 10/31/21 07:[address]: Conner Neff DEPT: SURGICAL PATHOLOGY RECD BY: Kiley Verma ENTERED: 10/31/21 14:17 SP TYPE: COLON BX OTHR DR: Dr. Rusty Wilkerson MD Tissues: Ascending colon Procedures: Surgery Specimen Level IV HEADER OPERATION: Colonoscopy (MAC), polypectomy PRE-OP DIAGNOSIS: Screen for colon cancer, family history TISSUE SUBMITTED: Ascending colon polyp MICROSCOPIC DIAGNOSIS Ascending colon polyp, polypectomy: Fragments of tubular adenoma. Fragments of fecal material. See comment. SJ:dulce 11/03/2021 COMMENT The specimen predominantly consists of fecal material. MICROSCOPIC DESCRIPTION Slides are reviewed. GROSS DESCRIPTION Received in fixative is one container labeled with the patient's name and designated ascending colon polyp. The specimen consists of multiple irregular fragments of light beverly soft tissue that in aggregate measure 1.5 x 0.5 x 0.1 cm. The specimen is totally submitted in one cassette. / AM:dulce 10/31/2021 TC:1 CPT: 74251
[2021-10-31 08:05] VITALS: BP 110/63; BP 121/52; PULSE 69; RESP 20; TEMP 36.9; O2SAT 99
--- NOTE | 2021-10-31 08:09 | OP.COLON_ITS ---
Patient Name: Aiyana Borden Procedure Date: 10/31/2021 7:32 AM Date of : 1980 Age: 41 Procedure: Colonoscopy Indications: Screening in patient at increased risk: Colorectal cancer in mother before age 60 Providers: Conner Neff MD Referring MD: Rusty Wilkerson Medicines: Monitored Anesthesia Care Patient Profile: This is a 41 year old female. Refer to note in patient chart for documentation of history and physical. Last Colonoscopy: more than 10 years ago. Complications: No immediate complications. Procedure: Pre-Anesthesia Assessment: - Prior to the procedure, a History and Physical was performed, and patient medications and allergies were reviewed. The patient's tolerance of previous anesthesia was also reviewed. The risks and benefits of the procedure and the sedation options and risks were discussed with the patient. All questions were answered, and informed consent was obtained. Prior Anticoagulants: The patient has taken no previous anticoagulant or antiplatelet agents. After reviewing the risks and benefits, the patient was deemed in satisfactory condition to undergo the procedure. After I obtained informed consent, the scope was passed under direct vision. Throughout the procedure, the patient's blood pressure, pulse, and oxygen saturations were monitored continuously. The colonoscope was introduced through the anus and advanced to the cecum, identified by appendiceal orifice and ileocecal valve. The colonoscopy was performed without difficulty. The patient tolerated the procedure well. The quality of the bowel preparation was adequate to identify polyps 6 mm and larger in size. Scope In: 7:46:48 AM Scope Withdrawal Time 0 hours 11 minutes 25 seconds Scope Out: 8:00:46 AM Total Procedure Duration Time 0 hours 13 minutes 58 seconds Findings: Two polyps were found in the ascending colon. These polyps were removed with a hot snare. Resection and retrieval were complete. The exam was otherwise without abnormality on direct and retroflexion views. Impression: - Two polyps in the ascending colon, removed with a hot snare. Resected and retrieved. - The examination was otherwise normal on direct and retroflexion views. Recommendation: - Discharge patient to home. - Resume previous diet. - Continue present medications. - Await pathology results. - Repeat colonoscopy in 1 year because the bowel preparation was suboptimal. Procedure Code(s): --- Professional --- 84319, Colonoscopy, flexible; with removal of tumor(s), polyp(s), or other lesion(s) by snare technique Diagnosis Code(s): --- Professional --- Z80.0, Family history of malignant neoplasm of digestive organs D12.2, Benign neoplasm of ascending colon CPT copyright 2017 [employer]. All rights reserved. The codes documented in this report are preliminary and upon perioperative nurse review may be revised to meet current compliance requirements. Conner Neff MD 10/31/2021 8:08:54 AM This report has been signed electronically. Number of Addenda: 0 Note Initiated On: 10/31/2021 7:32 AM
--- NOTE | 2021-10-31 08:09 | OP.CCLET_ITS ---
10/31/2021 Rusty Wilkerson Re : Colonoscopy procedure for Aiyana Borden Dear Rhea This procedure was performed on Sunday, October 31, 2021. My impressions and recommendations are as follows: Impressions : - Two polyps in the ascending colon, removed with a hot snare. Resected and retrieved. - The examination was otherwise normal on direct and retroflexion views. Recommendations : - Discharge patient to home. - Resume previous diet. - Continue present medications. - Await pathology results. - Repeat colonoscopy in 1 year because the bowel preparation was suboptimal. My findings are described in the full procedure note, which is enclosed. If I can be of further assistance, please feel free to contact me at Doctor phone number(s): , Work: . Sincerely, Conner Neff MD 10/31/2021 8:08:54 AM This report has been signed electronically.
[2021-10-31 08:13] VITALS: BP 110/63; BP 92/64; PULSE 67; RESP 18; O2SAT 99
[2021-10-31 08:16] VITALS: BP 110/63; BP 95/81; PULSE 65; RESP 18; O2SAT 100
[2021-10-31 08:20] VITALS: BP 101/60; BP 110/63; PULSE 64; RESP 18; TEMP 36.2; O2SAT 99
[2021-10-31 08:40] VITALS: BP 110/63
== END 2021-10-31 23:59 | disposition home or self-care (01) ==
LOC: EN 06:33 → AC 06:34
PROVIDERS: PCP Family Medicine; Referring Provider Family Medicine; Visit Provider Surgery
PROC: 0DJD8ZZ Inspection of Lower Intestinal Tract, Via Natural or Artificial Opening Endoscopic (ICD-10-PCS; CPT 45378; principal; 2021-10-31 07:25)
DX: Z12.11 Encounter for screening for malignant neoplasm of colon (principal); D12.2 Benign neoplasm of ascending colon; L30.9 Dermatitis, unspecified; F32.A Depression, unspecified; F41.9 Anxiety disorder, unspecified; F17.210 Nicotine dependence, cigarettes, uncomplicated; Z79.899 Other long term (current) drug therapy; Z80.0 Family history of malignant neoplasm of digestive organs
CPT/HCPCS: 45385; 88305; J7120

== ENCOUNTER 2021-11-03 07:15 | Outpatient (CLI) | payer OTHER, SELFPAY ==
--- NOTE | 2021-11-03 07:18 | BI_ITS ---
MAMMOGRAPHY - BILATERAL SCREENING REASON FOR EXAM: Female, 41 years old. Routine annual screening examination. PERTINENT HISTORY: Non-contributory. History of bilateral breast implants. TECHNIQUE: Digital bilateral breast will (3D mammographic acquisition) in the CC and MLO projections. 2-D mediolateral oblique (MLO) and craniocaudad (CC) views of both breasts were obtained. CAD: Full Field Digital Mammography with Computer Added Detection was performed. COMPARISON: Comparison is made with prior study dated 04/16/2020. FINDINGS: Breast Composition: The breasts are heterogeneously dense, which may obscure small masses. There are no dominant masses or suspicious calcifications. Stable appearance of the bilateral breast implants with evidence of linear markings within the implants. No other significant abnormalities are identified. There has been no significant change since the prior study. BI/SCRN MAMM (CAD)W/WILL BILAT IMPRESSION: Stable bilateral screening mammogram. Yearly follow-up mammogram recommended. (A) ASSESSMENT CATEGORY: BIRADS Category 2: Benign. A letter regarding these results will be sent to the patient by the facility within 30 days. Approximately 10% of breast cancers are not detected by mammography. A normal mammogram should not delay biopsy of a clinically suspicious abnormality. [id number] Electronically Signed: Kenny Veliz MD at 10:03 EST ,
== END 2021-11-03 23:59 | disposition home or self-care (01) ==
LOC: OPBI 07:16
PROVIDERS: PCP Family Medicine; Referring Provider Obstetrics & Gynecology; Visit Provider Obstetrics & Gynecology
DX: Z12.31 Encounter for screening mammogram for malignant neoplasm of breast (principal); Z98.82 Breast implant status
CPT/HCPCS: 77063; 77067

== ENCOUNTER 2021-11-14 18:23 | Outpatient (CLI) | payer OTHER, SELFPAY ==
--- NOTE | 2021-11-14 18:30 | US_ITS ---
STUDY: RENAL ULTRASOUND - COMPLETE REASON FOR EXAM: Female, 41 years old. UTI TECHNIQUE: Ultrasound evaluation of the kidneys was performed with real-time and static barbosa-scale imaging. COMPARISON: None. FINDINGS: RIGHT KIDNEY: Normal location of the right kidney, which is normal in size. The right kidney measures 10.5 cm. There is a normal cortex of the right kidney. The renal cortex measures 1.1 cm. There is no right renal mass or cyst. There are no right renal calculi. There is no right hydronephrosis. DISTAL RIGHT URETER: There is non-visualization of the distal right ureter. There is no demonstrated right ureterovesical junction calculus. There is a visualized right ureteral jet. LEFT KIDNEY: Normal location of the left kidney, which is normal in size. The left kidney measures 10.8 cm. There is a normal cortex of the left kidney. The renal cortex measures 1.2 cm. There is no left renal mass or cyst. There are no left renal calculi. There is no left hydronephrosis. DISTAL LEFT URETER: There is non-visualization of the distal left ureter. There is no demonstrated left ureterovesical junction calculus. There is a visualized left ureteral jet. BLADDER: The distended urinary bladder has a volume of 390 ml. There is a normal wall thickness of the distended urinary bladder. There is no demonstrated mass within the urinary bladder. There are no demonstrated bladder calculi. US/Kidney and Bladder IMPRESSION: Normal ultrasound of the kidneys and urinary bladder. Electronically Signed: River Cuba DO at 4:30 EST ,
== END 2021-11-14 23:59 | disposition home or self-care (01) ==
LOC: US 18:29
PROVIDERS: PCP Family Medicine; Visit Provider Urology
DX: N39.0 Urinary tract infection, site not specified (principal)
CPT/HCPCS: 76770

== ENCOUNTER 2021-11-25 05:18 | Day surgery (SDC) | payer OTHER, SELFPAY ==
[2021-11-22 10:44] LABS: Absolute Lymphocyte Count 2.54 X10^3/uL (0.83-4.51); Basophil# 0.03 X10^3/uL; Basophil% 0.4 % (0-1); Eosinophil# 0.07 X10^3/uL; Hematocrit 39.2 % (37-47); Hemoglobin 13.5 g/dL (12.0-15.0); Lymphocyte # 2.54 X10^3/ul (0.83-4.51); Lymphocyte % 36.3 % (19-41); Mean Corp Hgb Conc 34.4 g/dL (32-36); Mean Corpuscular Hgb 31.6 pg (27.0-32.0); Mean Corpuscular Volume 91.8 fL (81-99); Mean Platelet Vol. 10.3 fl (6.2-12.0); Monocyte# 0.33 X10^3/uL; Monocyte% 4.7 % (0-10); NRBC Flagged by Analyzer 0 % (0-5); Neutrophil % 57.3 % (47-70); Platelet Count 207 K/mm3 (150-450); RBC Distribution Width CV 12.7 % (11.6-14.6); RBC Distribution Width SD 42.8 fl (35.1-43.9); Red Blood Count 4.27 M/mm3 (4.2-5.4)
[2021-11-22 11:05] LABS: Magnesium 2.3 mg/dL (1.6-2.6)
--- NOTE | 2021-11-24 13:49 | PCM.HP.BLA ---
History and Physical Date of Admission: 11/24/21 Intake Vital Signs 11/18/21 09:26 Height 4 ft 11 in Weight: 140 lb BMI 28.3 BP 120/80 Intake Visit Reasons: TVHBS Chief Complaint: pre op TVH Title One Teacher Required: No Is patient in pain?: No Allergies garlic Allergy (Verified 10/31/21 06:49) Swelling Medications bupropion HCl 300 mg PO DAILY 09/04/13 [History Confirmed 11/18/21] epinephrine 0.3 mg IM PRN PRN 09/04/13 [History Confirmed 11/18/21] paroxetine HCl [Paxil] 60 mg PO DAILY 09/04/13 [History Confirmed 11/18/21] dupilumab 300 mg/2 mL subcutaneous pen injector 300 mg SUBCUT Q2W 10/13/21 [History Confirmed 11/18/21] Is last menstrual period known: No Post menopausal: No Patient : No : No [facility] Medical History (Updated 11/18/21 @ 10:[address] 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 TVHBS Details: MARANDA FLOREZ is a 41 year old who presents for preop visit for hysterectomy for pelvic pain and dysmenorrhea, post ablation. Female Reproductive History Menopausal Symptoms: No hot flashes, No night sweats, No difficulty concentrating and No change in libido Pregancy History 3 Elective abortions Hx Para 3 Spontaneous abortions Hx # Term Pregnancies Ectopic pregnancies Hx # Pregnancies Multiple births # of living children 3 Past Pregnancies Del. Date Name GA/Weeks Outcome Route Bth Weight Infant Gen Labor Lgth Anesthesia Del Locatn Provider FOB Unknown [place] Unknown Dusstyn Unknown Del ROS Const Constitutional: Reports as per HPI; Denies fatigue, increased appetite, poor appetite, night sweats, weight gain or weight loss Cardio Card: Denies chest pain Resp Resp: Denies cough or dyspnea GI GI: Reports as per HPI; Denies abdominal pain, bloating, constipation, nausea or vomiting : Reports as per HPI (frequent utis), pelvic pain and other; Denies difficulty voiding, dysuria, hematuria, hot flashes, nipple discharge, prolapse symptoms, urinary frequency, urinary incontinence, urinary urgency, vaginal discharge, vaginal dryness, vaginal odor or vaginal pruritus Skin Skin/Breast: Denies changing lesions, breast mass, breast pain, breast skin changes or nipple discharge Psych Psych: Denies anxiety, change in libido, depression or difficulty concentrating Exam Const General: cooperative, healthy appearing, comfortable, no acute distress, well developed and well groomed [facility] Head: normal to inspection and normocephalic Ears: hearing grossly normal bilaterally and external ears normal Nose: external nose normal Face and sinus: normal facial exam Neck Neck: normal visual inspection, full ROM and no lymphadenopathy Thyroid: thyroid normal Chest Chest palpation & inspection: normal inspection of the chest Breast inspection: normal inspection of the breasts and normal inspection of the axillae Breast palpation: normal palpation of the breasts, normal palpation of the axillae and no axillary lymphadenopathy Resp Effort & Inspection: normal respiratory effort GI Inspection: normal to inspection and non-distended Palpation: soft, no hepatosplenomegaly and no guarding General: bladder normal to palpation External Female Exam: normal external appearance, normal appearance of the urethra and no lesions Urethra: normal appearance of the urethra and normal palpation Speculum Exam - Vagina: normal appearance of the vagina and normal vaginal discharge Speculum Exam - Cervix: normal appearance of the cervix, no cervical discharge, no lesions and nontender Bimanual Exam- Vagina & Uterus: normal bimanual exam, uterine size normal, bladder normal to palpation, No tender, uterine mobility normal, consistency normal, non-tender and no cervical motion tenderness Bimanual Exam- Adnexa, other: normal adnexae, no masses and non-tender Skin General: no rashes or lesions noted Neuro General: patient alert, moves all extremities and no focal motor deficits Extrem General: normal to inspection and no pedal edema Psych Appearance: grossly normal Mental Status: mental status grossly normal Affect: normal affect Speech and Movement: speech and movement normal Attitude: cooperative Coding Level of Care Code No Charge Diagnoses Dysmenorrhea N94.6 Abnormal Pap smear of cervix R87.619 Urinary incontinence R32 Assessment and Plan Assessment and Plan (1) Dysmenorrhea: Status: Acute Comment: severe, 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 failed OTC meds. h/o endometrial ablation. plan TVHBS. Plan - Dr. Rosa Isela Downing MD: After discussing the patient's diagnosis and treatment plan options, patient wishes to proceed with surgical management. I have discussed with the patient the risks, benefits, and alternatives of the procedure which include but are not limited to risks of anesthesia, bleeding, infection, possible damage to bowel, bladder, or surrounding vasculature which could lead to additional surgery to evaluate any complications. Patient agrees to procedure and wishes to proceed. ACOG/uptodate references given for additional information regarding procedure. (2) Abnormal Pap smear of cervix: Status: Acute Comment: leep 2010, needs PAPs until 2034. (3) Urinary incontinence: Status: Chronic Comment: tvto in past, s/p urogyn consult, no revision needed at time of hyst. UPDATE- I have seen the patient and performed any clinically relevant updates to the history and physical exam. Rosa Isela Downing MD
[2021-11-25] VITALS (8 sets, daily range): BP systolic 118–160; BP diastolic 72–92; PULSE 72–85; RESP 16; TEMP 36.2–36.6; O2SAT 95–100; BMI 28.0
--- NOTE | 2021-11-25 | HYST_PTH ---
PATIENT: MARANDA FLOREZ [place] [facility] [id number] AGE/SX: 41/F ROOM: RE11/25/[address]: Dr. Rosa Isela Downing MD : 1980 BED: DIS: 11/25/2021 SPEC #: [id number] RECD: 11/25/21 10:15 STATUS: MARGA MCKINNON #: [id number] MAIKOL: 11/25/21 00:[address]: Rosa Isela Downing DEPT: SURGICAL PATHOLOGY RECD BY: Bruce Oneal ENTERED: 11/25/21 10:58 SP TYPE: HYSTERECT OTHR DR: Dr. Rusty Wilkerson MD Tissues: Uterus, NOS Procedures: Surgery Specimen Level V HEADER OPERATION: ERAS, vaginal hysterectomy, salpingectomy PRE-OP DIAGNOSIS: Pelvic pain, dysmenorrhagia TISSUE SUBMITTED: Uterus, cervix, bilateral fallopian tubes MICROSCOPIC DIAGNOSIS Uterus, cervix, bilateral fallopian tubes, vaginal hysterectomy and bilateral salpingectomy: Cervix ? chronic cystic cervicitis. Endometrium ? secretory endometrium. Myometrium ? focal adenomyosis. Bilateral fallopian tubes - no pathologic diagnosis. SJ:rg 11/26/2021 MICROSCOPIC DESCRIPTION Slides are reviewed. GROSS DESCRIPTION Received in fixative is one container labeled with the patient's name and designated uterus, cervix, bilateral fallopian tubes. The specimen consists of a hysterectomy specimen consisting of uterus with cervix and detached bilateral fallopian tubes. The uterus with cervix weighs 81 gm and measures 8.5 x 4.5 x 4 cm. The serosal surface is beverly, glistening. The ectocervical mucosa is unremarkable. The external os is covered with hemorrhagic, mucoid material and patulous in contour. The endocervical canal measures 3 cm in length. The endocervical mucosa is beverly, glistening and unremarkable. Sections of the cervix reveal multiple cysts filled with mucoid material. The endometrial cavity is slit-like and measures 4 cm in length and 0.3 cm in width. The endometrium is beverly, glistening without any mass lesion and measures <0.1 cm in thickness. Sections of the uterine wall reveal an ill-defined nodule measuring 0.7 cm in greatest dimension. The uterine wall measures up to 2.5 cm in thickness. The fallopian tubes are not identified as right or left and measures 5.5 cm in length and 0.4 cm in diameter and 6 cm in length and 0.5 cm in diameter. One of the fallopian tubes show a Filshie clip at the proximal end which appears intact. A Filshie clip is also noted in the container which also appears intact. The fimbrial ends are identified on both tubes. Sections reveal unremarkable cut surfaces. Fluxer sections are submitted in eight cassettes as follows: 1 - anterior cervix, 2 - posterior cervix, 3 & 4 - anterior uterine wall (3 also contains ill-defined nodular mass), 5 & 6 - posterior uterine wall, 7 - one fallopian tube without Filshie clip, 8 - second fallopian tube with Filshie clip at the proximal end. / RIK:dulce 11/25/2021 TC:5 CPT: 55471
[2021-11-25] MEDS: Vasopressin 20 UNITS/ML Vial (00:51)
[2021-11-25 06:00] LABS: Internal QC Validated? YES +Cl - CLEAR BKGD; Pregnancy, Urine Negative Negative
[2021-11-25] MEDS: Lactated Ringers 1,000 ML 40 ML IV (06:17)
[2021-11-25] MEDS: dexAMETHasone 10 MG/ML Vial 8 MG IV (06:17)
[2021-11-25] MEDS: Scopolamine 1mg/72hr Patch 1 PATCH TD (06:18)
[2021-11-25] MEDS: Enoxaparin 40 MG/0.4 ML Syringe SC (06:18)
[2021-11-25] MEDS: Acetaminophen 500 MG Tablet 1000 MG PO (06:19)
[2021-11-25] MEDS: Gabapentin 600 MG Tablet PO (06:19)
[2021-11-25] MEDS: Phenazopyridine 95 MG Tablet 190 MG PO (06:19)
[2021-11-25] MEDS: Celecoxib 200 MG Capsule 400 MG PO (06:19)
[2021-11-25 06:36] LABS: Bedside Glucose 97 mg/dL (70-110)
[2021-11-25] MEDS: Cefazolin 2 GM in 0.9% Normal Saline 100 ML IV (07:30)
--- NOTE | 2021-11-25 07:30 | PCM.OPRPT ---
Problems Associated Problem List Diagnoses (1) Dysmenorrhea: Report of Operation Pre-Operative Diagnosis: see A/P Post-Operative Diagnosis: same Surgery/Procedure Performed:: TVH BS Type of Anesthesia: General Specimen's removed: uterus, tubes Drains: roman Fluids Replaced: crystalloid Description of Procedure: Patient was taken to the operating room and was placed under general anesthesia was prepped and draped in normal sterile fashion in the dorsal lithotomy position. Preoperative antibiotics and SCDs and Roman catheter was placed inside the bladder. Weighted speculum was placed in the vagina and the anterior and posterior lip of the cervix was grasped with 2 Rene clamps and circumferentially injected with dilute vasopressin. A circumferential incision was made with a scalpel and the posterior cul-de-sac was entered into sharply and a longneck speculum was placed. The anterior cul-de-sac was also dissected down and entered into sharply and the uterosacral ligaments were clamped cut and suture ligated bilaterally followed by the cardinal ligaments which were Clamped cut and suture ligated bilaterally with 0 Monocryl. The uterus serially descended and progressive bites were taken bilaterally up to the level of the utero-ovarian ligament bilaterally which was clamped transected and double ligated with 0 Monocryl suture and 0 Vicryl free tie. Bilateral fallopian tubes and ovaries were well visualized and noted be within normal limits and the bilateral fallopian tubes were transected across the base with a Lilibeth clamp and removed and sutured with 0 Vicryl suture. Excellent hemostasis was noted. Posterior peritoneum was reapproximated with 2-0 Vicryl and a modified Ashton stitch was placed through the posterior vaginal cuff and bilateral uterosacral ligaments across the posterior cul-de-sac skimming along to provide apical support to the vagina. The vagina was closed with [id number] 0 Vicryl pop offs including the posterior and anterior peritoneum in the reapproximation. Excellent hemostasis was noted. All instruments removed from the vagina clear urine was noted at the end of the procedure and patient was awoken and taken recovery in stable condition. Grafts/Implants Used: none Complications none Admit VTE Documentation VTE Present on Admission: No VTE Mechan Device Prophylaxis: SCD's VTE Pharm Prophylaxis ordered?: Yes Multi Select Codes Urinary/Genital Urinary/Genital CPT Codes: 82072 TVH+BS/O <250gr uterus
--- NOTE | 2021-11-25 07:31 | EX.PCM.DISCH ---
Discharge Instructions Procedure Hysterectomy, Vaginal Diet Discharge Diet: No restrictions Activity Discharge Activity: Return to Normal Activity, May Not Drive (while taking narcotic pain medications.) and May Shower May resume sexual activity in: 6-8 weeks Dressing / Incision Call your doctor if your incision/area has: Continuous Slow Oozing, Sudden Increased Bleeding, Increased Pain/ Swelling, Increased Redness and Foul Smelling Discharge Call your doctor if you observe: Fever of 101 or Higher, Inability to urinate, Inability to have a bowel movement and Using more than 1 pad per hour Follow Up Care Please Follow Up With: Rosa Isela Downing MD Test Results: Test results from this visit will be discussed in further detail at your follow-up appointment, if applicable. Discharge Plan Admission Primary Reason for Your Visit: [facility] Attending Provider: Rosa Isela Downing Primary Care Provider: Rusty Wilkerson Discharge Orders/Prescriptions Prescriptions: New oxycodone-acetaminophen [Percocet] 5-325 mg tablet 1 tab PO Q6H PRN (Reason: pain) 7 Days Qty: 20 RF: 0 naproxen [naproxen] 500 MG tablet 500 mg PO BID PRN PRN (Reason: Pain) Qty: 30 RF: 1 Continued Dupixent Pen 300 mg/2 mL pen injector 300 mg subcut Q2W RF: 0 epinephrine 0.3 MG syringe 0.3 mg IM PRN PRN (Reason: Anaphylaxis) RF: 0 paroxetine HCl [Paxil] 40 MG tablet 60 mg PO DAILY RF: 0 bupropion HCl [Wellbutrin XL] 300 MG tablet extended release 24 hr 300 mg PO DAILY RF: 0 Referrals / Follow Up: Rusty Wilkerson MD [Primary Care Provider] - Disposition Disposition (needs filled in before D/C Order can be placed): Home, Self Care
[2021-11-25] MEDS: Lactated Ringers @ 70 MLS/HR 70 ML IV (09:19)
--- NOTE | 2021-11-25 09:21 | SUR.PHASEI ---
patient monitored on etCo2 NC, eras protocol. will cont to monitor. WNL.
[2021-11-25] MEDS: Ketorolac 30 MG/ML Syringe IV (12:00)
[2021-11-25 12:28] LABS: Absolute Lymphocyte Count 0.96 X10^3/uL (0.83-4.51); Absolute Neutrophil Count 13.9 X10^3/uL (2.0-7.7); Basophil# 0.02 X10^3/uL; Basophil% 0.1 % (0-1); Hemoglobin 13.2 g/dL (12.0-15.0); Lymphocyte # 0.96 X10^3/ul (0.83-4.51); Lymphocyte % 6.4 % (19-41); Mean Corp Hgb Conc 35.7 g/dL (32-36); Mean Corpuscular Hgb 32.7 pg (27.0-32.0); Mean Corpuscular Volume 91.6 fL (81-99); Mean Platelet Vol. 10.4 fl (6.2-12.0); Monocyte# 0.09 X10^3/uL; Monocyte% 0.6 % (0-10); NRBC Flagged by Analyzer 0 % (0-5); Neutrophil # 13.87 X10^3/uL (2.7-7.7); Neutrophil % 92.4 % (47-70); Platelet Count 209 K/mm3 (150-450); RBC Distribution Width CV 12.3 % (11.6-14.6); RBC Distribution Width SD 41.6 fl (35.1-43.9); Red Blood Count 4.04 M/mm3 (4.2-5.4)
== END 2021-11-25 23:59 | disposition home or self-care (01) ==
LOC: SDC 05:19 → AC 05:19
PROVIDERS: Anesthesiology; PCP Family Medicine; Referring Provider Obstetrics & Gynecology; Visit Provider Obstetrics & Gynecology
PROC: (CPT 58260; principal; 2021-11-25 07:10)
DX: N72 Inflammatory disease of cervix uteri (principal); D84.9 Immunodeficiency, unspecified; N94.6 Dysmenorrhea, unspecified; F17.210 Nicotine dependence, cigarettes, uncomplicated; Z80.0 Family history of malignant neoplasm of digestive organs
CPT/HCPCS: 58262; 00944; 36415; 81025; 82962; 83735; 85025; 86850; 86900; 86901; 88307; J7120; J2405

== ENCOUNTER → 2022-08-14 | Outpatient (CLI) | payer OTHER, SELFPAY ==
--- NOTE | 2022-08-14 07:00 | CT_ITS ---
STUDY: CT ABDOMEN WITH AND WITHOUT CONTRAST REASON FOR EXAM: Female, 42 years old. ADRENAL PROTOCOL RADIATION DOSAGE (If Supplied By Facility): CTDIvol = ( 20.08 ) mGy, DLP = ( 1365.85 ) mGycm TECHNIQUE: Transaxial images were obtained pre and post I.V. administration of IV 100mL Isovue-300, and oral contrast. Sagittal and coronal images were reconstructed. Individualized dose optimization techniques were used for this CT. COMPARISON: 06/19/2021 FINDINGS: The visualized lung bases are unremarkable. The visualized portions of the heart are within normal limits. Normal liver. Normal gallbladder and extrahepatic biliary system. Normal spleen. Normal pancreas. Normal right adrenal gland. No change in 1.5 cm mass of the medial limb of the left lobe of the adrenal gland which measures 41 Hounsfield units on the unenhanced images, 48 Hounsfield units on the portal venous phase images and 41 Hounsfield units on the delayed images. This is not diagnostic of a typical adrenal adenoma. Differential diagnosis includes a dense adenoma, adrenal cortical carcinoma, or metastasis. However, lack of growth favors a benign etiology. Normal right kidney. Normal left kidney. Normal visualized stomach. Normal small intestine. Normal colon. The appendix is visualized and appears normal. Normal abdominal aorta. Normal inferior vena cava. Normal retroperitoneum. Normal abdominal wall. Normal osseous structures. CT/Abdomen W/WO IV Contrast IMPRESSION: No change in left adrenal gland mass, likely benign. Continued follow-up is recommended. Electronically Signed: Rodrigo Otero MD at 8:30 EST ,
== END | disposition home or self-care (01) ==
LOC: CT 06:59
PROVIDERS: PCP Family Medicine; Referring Provider Family Medicine; Visit Provider Family Medicine
DX: E27.8 Other specified disorders of adrenal gland (principal)
CPT/HCPCS: 74170; Q9967

== ENCOUNTER → 2022-11-10 | Outpatient (CLI) | payer OTHER, SELFPAY ==
--- NOTE | 2022-11-10 07:11 | BI_ITS ---
MAMMOGRAPHY - BILATERAL SCREENING REASON FOR EXAM: Female, 42 years old. Routine annual screening examination. PERTINENT HISTORY: Grandmother with breast cancer. Bilateral breast implants. TECHNIQUE: Digital bilateral breast will (3D mammographic acquisition) in the CC and MLO projections. 2-D mediolateral oblique (MLO) and craniocaudad (CC) views of both breasts were obtained. CAD: Full Field Digital Mammography with Computer Added Detection was performed. COMPARISON: Comparison is made with prior study dated 11/03/2021 and 03/21/2021. FINDINGS: Breast Composition: The breasts are extremely dense, which lowers the sensitivity of mammography. There are no dominant masses or suspicious calcifications. Stable appearance of the bilateral breast implants. No other significant abnormalities are identified. There has been no significant change since the prior study. BI/SCRN MAMM (CAD)W/WILL BILAT IMPRESSION: Stable bilateral screening mammogram. Yearly follow-up mammogram recommended. (A) ASSESSMENT CATEGORY: BIRADS Category 2: Benign. A letter regarding these results will be sent to the patient by the facility within 30 days. Approximately 10% of breast cancers are not detected by mammography. A normal mammogram should not delay biopsy of a clinically suspicious abnormality. [id number] Electronically Signed: Kenny Veliz MD at 8:35 EST ,
== END | disposition home or self-care (01) ==
LOC: OPBI 07:10
PROVIDERS: PCP Family Medicine; Visit Provider Obstetrics & Gynecology
DX: Z12.31 Encounter for screening mammogram for malignant neoplasm of breast (principal); Z80.3 Family history of malignant neoplasm of breast; Z98.82 Breast implant status
CPT/HCPCS: 77063; 77067

== ENCOUNTER → 2023-01-04 | Outpatient (CLI) | payer OTHER, SELFPAY ==
[2023-01-09 10:37] LABS: Absolute Lymphocyte Count 2.19 X10^3/uL (0.83-4.51); Absolute Neutrophil Count 3.8 X10^3/uL (2.0-7.7); Basophil# 0.02 X10^3/uL; Basophil% 0.3 % (0-1); Eosinophils% 1.5 % (0-5); Hematocrit 37.9 % (37-47); Hemoglobin 12.8 g/dL (12.0-15.0); Lymphocyte # 2.19 X10^3/ul (0.83-4.51); Lymphocyte % 33.9 % (19-41); Mean Corp Hgb Conc 33.8 g/dL (32-36); Mean Corpuscular Hgb 31.5 pg (27.0-32.0); Mean Corpuscular Volume 93.3 fL (81-99); Mean Platelet Vol. 9.9 fl (6.2-12.0); Monocyte# 0.35 X10^3/uL; Monocyte% 5.4 % (0-10); NRBC Flagged by Analyzer 0 % (0-5); Neutrophil # 3.78 X10^3/uL (2.7-7.7); Neutrophil % 58.6 % (47-70); Platelet Count 233 K/mm3 (150-450); RBC Distribution Width SD 41.4 fl (35.1-43.9); Red Blood Count 4.06 M/mm3 (4.2-5.4); White Blood Count 6.5 K/mm3 (4.4-11.0)
[2023-01-09 11:15] LABS: Cholesterol 219 mg/dL (200); High Density Lipoprotein 55 mg/dL; Thyroid Stim Hormone (TSH) 1.14 uIU/mL (0.358-3.74); Triglycerides 129 mg/dL; Very Low Density Lipoprotein 26 mg/dL (5-40)
[2023-01-12 21:06] LABS: HPV APTIMA, High Risk Positive (Negative); HPV Genotype 16, Aptima Negative (Negative); HPV Genotype 18,45 Aptima Negative (Negative)
== END | disposition home or self-care (01) ==
LOC: LABSPEC 16:59
PROVIDERS: Obstetrics & Gynecology; PCP Family Medicine; Visit Provider Obstetrics & Gynecology
DX: Z12.4 Encounter for screening for malignant neoplasm of cervix (principal)
CPT/HCPCS: 36415; 80061; 84443; 85025; 87624; 88175; G0145

== ENCOUNTER → 2023-03-08 | Outpatient (CLI) | payer OTHER, SELFPAY ==
[2023-03-08 12:21] LABS: Absolute Lymphocyte Count 1.64 X10^3/uL (0.83-4.51); Absolute Neutrophil Count 4.5 X10^3/uL (2.0-7.7); Basophil# 0.02 X10^3/uL; Basophil% 0.3 % (0-1); Eosinophil# 0.04 X10^3/uL; Eosinophils% 0.6 % (0-5); Hematocrit 38.8 % (37-47); Lymphocyte # 1.64 X10^3/ul (0.83-4.51); Lymphocyte % 25.3 % (19-41); Mean Corp Hgb Conc 33.5 g/dL (32-36); Mean Corpuscular Hgb 31.8 pg (27.0-32.0); Mean Corpuscular Volume 94.9 fL (81-99); Monocyte# 0.25 X10^3/uL; Monocyte% 3.9 % (0-10); NRBC Flagged by Analyzer 0 % (0-5); Neutrophil # 4.52 X10^3/uL (2.7-7.7); Neutrophil % 69.7 % (47-70); Platelet Count 260 K/mm3 (150-450); RBC Distribution Width CV 12.2 % (11.6-14.6); Red Blood Count 4.09 M/mm3 (4.2-5.4); White Blood Count 6.5 K/mm3 (4.4-11.0)
[2023-03-08 13:27] LABS: ALB/GLOB Ratio 0.9 RATIO (0.9-2.4); AST(SGOT) 11 U/L (15-37); Alanine Aminotransfer ALT/SGPT 18 U/L (13-56); Albumin, Serum 3.2 g/dL (3.2-5.0); Alkaline Phosphatase 72 U/L (45-117); Anion Gap 8 (5-15); BUN 10 mg/dL (7-18); BUN/Creat Ratio 12.8 RATIO (10-20); Calcium,Total 8.4 mg/dL (8.5-10.1); Chloride 107 mmol/L (98-107); Cholesterol 205 mg/dL (200); Creatinine, Serum 0.78 mg/dL (0.55-1.02); EST Glomerular Filtration Rate 85 mL/min (>60); Est Glom Filt Rate - Afr Amer 103 mL/min (>60); Globulin 3.5 g/dL (2.2-4.2); Glucose 82 mg/dL (74-106); High Density Lipoprotein 53 mg/dL; Potassium 3.5 mmol/L (3.5-5.1); Protein, Total 6.7 g/dL (6.4-8.2); Sodium Level 140 mmol/L (136-145); Triglycerides 332 mg/dL; Very Low Density Lipoprotein 66 mg/dL (5-40)
== END | disposition home or self-care (01) ==
LOC: BFHLAB 10:51
PROVIDERS: PCP Nurse Practitioner Family; Referring Provider Nurse Practitioner Family; Visit Provider Nurse Practitioner Family
DX: Z00.01 Encounter for general adult medical examination with abnormal findings (principal)
CPT/HCPCS: 36415; 80053; 80061; 85025

== ENCOUNTER → 2024-01-06 | Outpatient (CLI) | payer OTHER, SELFPAY ==
[2024-01-11 11:09] LABS: HPV APTIMA, High Risk Negative (Negative)
== END | disposition home or self-care (01) ==
PROVIDERS: PCP Nurse Practitioner Family; Visit Provider Obstetrics & Gynecology
DX: Z12.4 Encounter for screening for malignant neoplasm of cervix (principal)
CPT/HCPCS: 87624; 88175; G0145

== ENCOUNTER → 2024-01-13 | Outpatient (CLI) | payer OTHER, SELFPAY ==
--- NOTE | 2024-01-13 07:16 | BI_ITS ---
MAMMOGRAPHY - BILATERAL SCREENING REASON FOR EXAM: Female, 43 years old. Routine annual screening examination. PERTINENT HISTORY: Grandmother with breast cancer. Bilateral breast implants. TECHNIQUE: Digital bilateral breast will (3D mammographic acquisition) in the CC and MLO projections. 2-D mediolateral oblique (MLO) and craniocaudad (CC) views of both breasts were obtained. CAD: Full Field Digital Mammography with Computer Added Detection was performed. COMPARISON: Comparison is made with prior study dated November 10, 2022 and November 03, 2021. FINDINGS: Breast Composition: The breasts are heterogeneously dense, which may obscure small masses. There are no dominant masses or suspicious calcifications. Bilateral breast implants are once again seen. At this time, there is been progressive development of linear increases in both breasts. Clinical correlation recommended to assess for possible rupture. No other significant abnormalities are identified. BI/SCRN MAMM (CAD)W/WILL BILAT IMPRESSION: Stable bilateral screening mammogram. Yearly follow-up mammogram recommended. (A) ASSESSMENT CATEGORY: BIRADS Category 2: Benign. A letter regarding these results will be sent to the patient by the facility within 30 days. Approximately 10% of breast cancers are not detected by mammography. A normal mammogram should not delay biopsy of a clinically suspicious abnormality. [id number] Electronically Signed: Kenny Veliz MD at 8:41 EDT ,
== END | disposition home or self-care (01) ==
LOC: OPBI 07:16
PROVIDERS: PCP Nurse Practitioner Family; Referring Provider Obstetrics & Gynecology; Visit Provider Obstetrics & Gynecology
DX: Z12.31 Encounter for screening mammogram for malignant neoplasm of breast (principal); Z80.3 Family history of malignant neoplasm of breast; Z98.82 Breast implant status
CPT/HCPCS: 77063; 77067

== ENCOUNTER → 2024-12-12 | Outpatient (CLI) | payer OTHER, SELFPAY ==
--- NOTE | 2024-12-12 08:45 | RAD_ITS ---
PROCEDURE: ABDOMEN SINGLE VIEW 12/12/2024 REASON FOR EXAM: ABDOMINAL PAIN TECHNIQUE: Supine and upright views of the abdomen were obtained. COMPARISON: None FINDINGS: Bowel gas: Moderate constipation identified with fecal material distributed throughout the colon. No evidence of bowel obstruction. Calcifications: No suspicious calcifications. Bones: The bones are unremarkable. Other: Calcified left phlebolith. RAD/Abdomen Single View IMPRESSION: Moderate amount of fecal material is seen throughout the colon. Reading Location: [place] [id number]
== END | disposition home or self-care (01) ==
LOC: MTRAD 08:43
PROVIDERS: PCP Nurse Practitioner Family; Referring Provider Nurse Practitioner Family; Visit Provider Nurse Practitioner Family
DX: R10.30 Lower abdominal pain, unspecified (principal)
CPT/HCPCS: 74018

== ENCOUNTER 2025-01-12 07:55 | Outpatient (CLI) | payer OTHER, SELFPAY ==
--- NOTE | 2025-01-12 07:07 | PRE.ANES_ITS ---
ASA Classification* ASA Classification ASA Classification: 2 Assessment & Plan Anesthesia* Anesthesia Assessment Anesthesia Assessment: Discussed sedation and/or anesthesia options, risks, benefits, and alternatives with patient/parents/legal guardian/POA. Questions invited. The patient/parents/legal guardian/POA seems to understand and agrees to proceed with anesthesia plan. Reviewed the physical assessment, medical history, allergy history and patient home medications list prior to surgery/procedure/anesthetic and documented any changes. Performed airway and anesthesia risk assessments. Anesthesia Type Anesthesia Type: MAC Anesthesia Focused Assessment* Airway Assessment Mouth opens: >3 cm Mallampati Score: II Focused Labs Anesthesia Preop lab: CBC WBC 6.5 K/mm3 (4.4-11.0) 03/08/23 10:52 03/08/23 RBC 4.09 M/mm3 (4.2-5.4) L 03/08/23 10:52 03/08/23 Hgb 13.0 g/dL (12.0-15.0) 03/08/23 10:03/08/23 Hct 38.8 % (37-47) 03/08/23 10:52 03/08/23 Plt Count 260 K/mm3 (150-450) 03/08/23 10:52 03/08/23 CHEMISTRY Potassium 3.5 mmol/L (3.5-5.1) 03/08/23 10:52 03/08/23 Sodium 140 mmol/L (136-145) 03/08/23 10:52 03/08/23 Magnesium 2.3 mg/dL (1.6-2.6) 11/22/21 10:21 11/22/21 BUN 10 mg/dL (7-18) 03/08/23 10:52 03/08/23 Creatinine 0.78 mg/dL (0.55-1.02) 03/08/23 10:03/08/23 Glucose 82 mg/dL (74-106) 03/08/23 10:52 03/08/23 POC Glucose 97 mg/dL (70-110) 11/25/21 06:08 11/25/21 TSH 1.14 uIU/mL (0.358-3.74) 01/09/23 10:10 COAG PT 13.0 SECONDS (11.7-14.9) 07/31/15 12:25 Urine Test Negative Negative 11/25/21 05:52 11/25/21 Pre-Assessment Diagnosis/Proposed Procedure Planned Operative Procedure(s): COLONOSCOPY,EGD Anesthesia History 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 When Was Last Pacemaker Check QUESTION #4 FULL TEXT: You/Your Family Experience fever (hyperthermia) with Anesthesia Last Oral Intake Last Oral intake: Last Oral Intake NPO since Meds taken in AM with sips of water? 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 Female Yes 01/05/25 10:53 HX of Motion Sickness No 01/05/25 10:53 HX of N/V After Surgery No 01/05/25 10:53 Non-Smoker No 01/05/25 10:53 Duration of Surgery greater No 01/05/25 10:53 than 60 minutes Number of Risk Factors 1 01/05/25 10:53 PONV Score Low Risk 01/05/25 10:53 Height & Weight Height & Weight: Anesthesia: Height & Weight Height 4 ft 11 in 12/20/24 08:08 Respiratory Assessment Respiratory Assessment - apprentice jockey: Respiratory Tract Infection Hx - apprentice jockey Hx Respiratory Tract Infection No 01/05/25 10:53 STOP Sleep Apnea STOP Sleep Apnea - apprentice jockey: STOP Sleep Apnea - apprentice jockey Hx Hypertension No 01/05/25 10:53 Hx Sleep Apnea No 01/05/25 10:53 CPAP No 04/05/24 08:24 BIPAP No 04/05/24 08:24 Do you snore loudly (louder No 01/05/25 10:53 than talking or can be heard Do you often feel tired/ No 01/05/25 10:53 fatigued/ sleepy during daytime? Has anyone observed you stop No 01/05/25 10:53 breathing during sleep? STOP Results Negative 01/05/25 10:53 QUESTION #5 FULL TEXT : Do you snore loudly (louder than talking or can be heard through closed doors)? 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 Specify any problems Hx of Preganancy in last 3 No 01/05/25 10:53 Months Nurse Filling Out Transfusion MGRIFFITH 01/05/25 10:53 & Questions: Date: 01/05/25 01/05/25 10:53 Time: 10:54 01/05/25 10:53 Patient unable to answer at this time (ie. confused, unrespo /Reproduction History /Reproductive History - apprentice jockey: /Reproductive Hx- apprentice jockey Hx Now No 01/05/25 10:53 Gestational Age (in weeks): EDC: Hx Hx Para Hx Section SAB No 01/05/25 10:53 PFSH Medical History History of GI bleed Ren blood in stool Left lateral epicondylitis Right shoulder pain Wears contact lenses Depression Alcohol use Low iron Smoker History of echocardiogram Abnormal Pap smear of cervix Anxiety Home Medications ?Medication ?Instructions ?Recorded ?Last Taken ?Type epinephrine 0.3 mg/0.3 mL 0.3 mg IM PRN PRN Anaphylaxi s 09/04/13 04/18/15 History injection, auto-injector 0.3 MG bupropion HCl 150 mg 24 hr tablet, 150 mg PO QAM 02/07 Unknown History extended release paroxetine HCl 40 mg tablet 40 mg PO DAILY #90 tabs Unknown Rx sodium sul 1.479 gram-potas ch See Rx Instructions PO PER PKG DIR 12/20/24 Unknown Rx 0.188 gram-magnes sul 0.225 gram #24 tabs tablet (Sutab) bupropion HCl 300 mg 24 hr tablet, 300 mg PO DAILY 08/21 Unknown History extended release paroxetine HCl 20 mg tablet 20 mg PO DAILY 01/05/25 Un known History Allergy/AdvReac Type Severity Reaction Status Date / Time garlic Allergy Swelling Verified 01/05/25 10:50 Family History Mother Colon cancer Grandmother Kidney disease Surgical History H/O bilateral salpingectomy S/P vaginal hysterectomy Hx of colonoscopy Hx of bladder repair surgery H/O tubal ligation (~03/2004) H/O dilation and curettage (~05/24/14) H/O LEEP (~01/29/09) Social History adopted: No household members: family housing: house number of children: 3 current occupational status: employed current occupation: [employer]- [employer] Smoking Status: Current every day smoker tobacco type: cigarettes alcohol intake: current alcohol intake frequency: a few times a week details: social substance use type: does not use caffeine: Yes what type of physical activity do you participate in: bicycling and weight training seatbelt use: always do you feel safe at home: Yes additional social history: Patient works for [employer] Review of Systems (Anesthesia) ROS Narrative System reviewed and no additional complaints, except as documented.
--- NOTE | 2025-01-12 07:24 | NURSING ---
Pt states she took 24 laxative pills and has not had a bowel movement yet. Discussed with Dr. Neff. He would like patient to be canceled for today and reschedule with a different prep. This RN and Dr Neff both discussed this with patient andd she is agreeable to plan.
== END 2025-01-12 19:00 | disposition home or self-care (01) ==
LOC: SDC 08-08 16:04
PROVIDERS: PCP Nurse Practitioner Family; Referring Provider Nurse Practitioner Family; Visit Provider Surgery
DX: Z00.00 Encounter for general adult medical examination without abnormal findings (principal)
CPT/HCPCS: A4216

== ENCOUNTER → 2025-03-20 | Outpatient (CLI) | payer OTHER, SELFPAY ==
--- NOTE | 2025-03-20 13:10 | NEURO ---
NCS and/or EMG Patient Report Ordering Doctor: Rusty Ko DATE OF SERVICE: 03/20/25 Clinical Summary: 44 year old female patient with symptoms of numbness, tingling, and pain in her hands. Nerve Conduction Studies Summary: Nerve conduction studies were performed in the bilateral upper extremities. The median-D2 SNAP distal latency was prolonged bilaterally with reduced amplitude on the right side. The right median-APB CMAP distal latency was prolonged. Needle Examination Summary: Needle examination of select muscles of the bilateral upper extremities was normal. Impression: This is an abnormal study. 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 2) Mild, left median mononeuropathy at the wrist (carpal tunnel syndrome), with sensory fiber demyelination Multi Select Codes Neurology Neurology Interp Codes: 14592-70 Musc test done w/n test comp (interp) (2) and 51190-22 Nrv cndj test 11-12 studies (interp)
== END | disposition home or self-care (01) ==
LOC: PSN 11:46
PROVIDERS: PCP Nurse Practitioner Family; Referring Provider Orthopaedic Surgery Sports Medicine; Visit Provider Orthopaedic Surgery Sports Medicine
DX: G56.03 Carpal tunnel syndrome, bilateral upper limbs (principal)

== ENCOUNTER → 2025-03-24 | Outpatient (CLI) | payer OTHER, SELFPAY ==
--- OUTSIDE RECORDS SUMMARY | 2025-03-24 07:34 | XMS RPT_ITS | CCD ---
Author Organization [facility] Care Team Providers Care Gas Charger Name Role Phone Dr. Divya Wilkerson Primary Care Provider [phone] Dr. Divya Wilkerson Referring Provider Dr. Rosa Isela Downing Attending Provider [phone] Unavailable Primary Care Provider UnavailDr. Divya Lopes Referring Provider Unavailable Dr. Rosa Isela Downing Attending Provider José Manuel AIRPLANE PILOT PHOTOGRAMMETRY-C Ursula Primary Care Provider [phone] RICCI BREEN Referring Unavailable RICCI BREEN Attending Unavailable DIVYA WILKERSON Primary Care Unavailable DIVYA WILKERSON Primary Care Unavailable MICHAEL RAMIREZ Referring Unavailable MICHAEL RAMIREZ Attending Unavailable Terrie Clement Attending Unavailable José Manuel, Ursula Primary Care Unavailable José Manuel, Ursula Referring Unavailable José Manuel, Ursula Primary Care Unavailable Divya Ko Attending Unavailable José Manuel, Ursula Referring Unavailable José Manuel, Ursula Primary Care Unavailable Divya Ko Attending Unavailable José Manuel, Ursula Referring Unavailable José Manuel, Ursula Referring Unavailable Zuri England Attending Unavailable José Manuel, Ursula Primary Care Unavailable José Manuel, Ursula Primary Care Unavailable Divya Ko Attending Unavailable Divya Ko Referring Unavailable José Manuel, Ursula Primary Care Unavailable José Manuel Ursula Attending Unavailable José Manuel, Ursula Referring Unavailable Divya Ko Referring Unavailable Divya Ko Attending Unavailable José Manuel, Ursula Primary Care Unavailable Yobany Donaldson Attending Unavailable Divya Ko Referring Unavailable Divya Ko Consulting Unavailable José Manuel, Ursula Primary Care Unavailable José Manuel, Ursula Primary Care Unavailable Ashwin Jin Attending Unavailable José Manuel, Ursula Primary Care Unavailable Conner Neff Attending Unavailable José Manuel, Ursula Referring Unavailable José Manuel, Ursula Primary Care Unavailable Divya Ko Attending Unavailable [facility] Referring Unavailable Ashwin Jin Attending Unavailable [facility] Primary Care Unavailable Terrie Clement Attending Unavailable [facility] Primary Care Unavailable Terrie Clement Attending Unavailable [facility] Primary Care Unavailable [facility] Referring Unavailable Allergies Allergy Classification Reported Allergen(s) Allergy Type Date of Onset Reaction(s) Facility (8 sources) Garlic preparation; Translations: [GARLIC] Drug Allergy 02-25-2009 Swelling [facility] (1 source) Garlic preparation Drug Allergy 03-08-2025 [facility] Repository Medications Current Medications Medication Drug Class(es) Dates Sig (Normalized) Sig (Original) 12 hr buPROPion hydrochloride 150 mg extended release oral tablet (9 sources) Aminoketone Start: 01-06-2024 take 1 tablet by mouth once daily Bupropion Hcl (Wellbutrin Sr) 150 mg tablet sustained-release 12 hr Active 150 MG PO DAILY January 06, 2024 12:00am Start: 09-28-2012 take 1 tablet by katrina th once daily Bupropion Hcl (Wellbutrin Xl) 300 MG tablet extended release 24 hr Active 300 MG PO DAILY September 04, 2013 1:00am Comment on above: Take 1 tablet by katrina th once daily. [id number] 0.3 ml EPINEPHrine 1 mg/ml auto-injector (7 sources) alpha-Adrenergic Agonist, beta-Adrenergic Agonist, Catecholamine Start: 09-04-2013 Epinephrine Active 0.3 MG IM NEEDED September 04, 2013 1:00am Start: 02-25-2009 EPINEPHRINE 0. 3 MG/0.3 ML (1:1,000) IM PEN INJECTOR Indications: Shortness of breath use as directed before calling [phone] 02/25/2009 Active Comment on above: use as directed befo re calling 911 PARoxetine mesylate 40 mg oral tablet (7 sources) Serotonin Reuptake Inhibitor Start: 09-04-2013 Paroxetine Hcl (Paxil) 40 MG tablet Active 60 MG PO DAILY September 04, 2013 1:00am Start: 11-21-2012 take 1.5 tablets by mouth once daily PARoxetine (PAXIL) 40 mg tablet Indications: Adjustment disorder with depressed mood Take 1.5 tablets by mouth once daily. 45 tablet 5 11/21/2012 Active Comment on above: Take 1.5 tablets by mouth once daily. Completed/Discontinued Medications Medication Drug Class(es) Dates Sig (Normalized) Sig (Original) acetaminophen 325 mg / HYDROcodone bitartrate 5 mg oral tablet (12 sources) Opioid Agonist Start: 06-19-2021 End: 10-13-2021 take 1 tablet by mouth every six hours Hydrocodone-Acetami nophen Discontinued 1 TABLET PO EVERY 6 HOURS 10 June 19, 2021 October 13, 2021 9:25am Start: 10-12-2020 End: 10-15-2020 take 1 tablet by mouth every six hours as needed Hydrocodone-Acetaminophen Discontinued 1 TABLET PO EVERY 6 HOURS NEEDED 10 October 12, 2020 October 15, 2020 1:03am acetaminophen 325 mg / oxyCODONE hydrochloride 5 mg oral tablet (6 sources) Opioid Agonist Start: 11-25-2021 End: 12-11-2021 take 1 tablet by mouth every six hours Oxycodone-Acetaminophen (Percocet) 5-325 mg tablet Discontinued 1 TABLET PO EVERY 6 HOURS 20 November 25, 2021 December 11, 2021 3:11pm [id number] 200 actuat albuterol 0.09 mg/actuat metered dose inhaler (1 source) beta2-Adrenergic Agonist Start: 12-17-2015 take 2 puff(s) by inhalation every four hours as needed for wheezing albuterol HFA (VENTOLIN HFA) 90 mcg/actuation inhaler Indications: Acute bronchitis, unspecified organism Inhale 2 Puffs as instructed every 4 hours as needed for Wheezing/Shortness of Breath. 1 Inhaler 0 12/17/2015 Active Comment on above: Inhale 2 Puffs as in structed every 4 hours as needed for Wheezing/Shortness of Breath. 2 ml dupilumab 150 mg/ml auto-injector (6 sources) Interleukin-4 Receptor alpha Antagonist Start: 10-13-2021 End: 01-06-2024 Dupilumab (Dupixent Pen) 300 mg/2 mL pen injector Discontinued 300 MG SC every 2 weeks October 13, 2021 1:00am January 06, 2024 4:12pm LORazepam 0.5 mg oral tablet (1 source) Benzodiazepine Start: 09-28-2012 LORazepam 0.5 mg Tab Indications: Unspecified adjustment reaction Take one to two tabets up to twice daily NEEDED for anxiety, sleeplessness 60 tablet 5 09/28/2012 Active Comment on above: Take one to two tabe ts up to twice daily NEEDED for anxiety, sleeplessness metoclopramide 10 mg oral tablet (6 sources) Dopamine-2 Receptor Antagonist Start: 06-19-2021 End: 10-13-2021 take 1 tablet by mouth every six hours Metoclopramide Hcl (Reglan) 10 mg tablet Discontinued 10 MG PO EVERY 6 HOURS June 19, 2021 12:00am October 13, 2021 9:26am naproxen 500 mg oral tablet (6 sources) Nonsteroidal Anti-inflammatory Drug Start: 11-25-2021 End: 12-11-2021 take 500 mg by mouth twice daily as needed Naproxen Discontinued 500 MG PO TWICE DAILY NEEDED November 25, 2021 1:00am December 11, 2021 3:11pm omeprazole 20 mg delayed release oral tablet (6 sources) Proton Pump Inhibitor Start: 06-19-2021 End: 10-13-2021 take 1 tablet by mouth once daily Omeprazole Magnesium (Prilosec Otc) 20 mg tablet,delayed release (DR/EC) Discontinued 20 MG PO DAILY June 19, 2021 12:00am October 13, 2021 9:26am Problems Active Problems Problem Classification Problem Date Documented Date Episodic/Chronic Allergic reactions (7 sources) History of anaphylaxis; Translations: [Personal history of anaphylaxis] 10-12-2020 Episodic Anxiety disorders (7 sources) Anxiety; Translations: [Anxiety disorder, unspecified] Onset: 09-08-2024 06-19-2021 Chronic Genitourinary symptoms and ill-defined conditions (6 sources) Urinary incontinence; Translations: [Unspecified urinary incontinence] 11-18-2021 Chronic Immunity disorders (6 sources) Immunosuppression; Translations: [Immunodeficiency, unspecified] 10-13-2021 Chronic Menstrual disorders (6 sources) Dysmenorrhea; Translations: [Dysmenorrhea, unspecified] 10-13-2021 Chronic Mood disorders (1 source) Depressive disorder; Translations: [Other specified depressive episodes] 11-17-2006 Chronic Mood disorders (1 source) Mood disorders; Translations: [Depression, unspecified] Onset: 09-08-2024 Noninfectious gastroenteritis (13 sources) Gastroenteritis; Translations: [Noninfective gastroenteritis and colitis, unspecified] Onset: 02-25-2009 02-25-2015 Episodic Other connective tissue disease (2 sources) Lateral epicondylitis, left elbow; Translations: [Lateral epicondylitis, left elbow] Onset: 03-08-2025 Episodic Other liver diseases (6 sources) Enzyme level - finding; Translations: [Elevated transaminase measurement] 06-27-2021 Episodic Other nervous system disorders (2 sources) Carpal tunnel syndrome, bilateral upper limbs; Translations: [Carpal tunnel syndrome, bilateral upper limbs] Onset: 03-08-2025 Chronic Other nervous system disorders (1 source) Carpal tunnel syndrome, left upper limb; Translations: [Carpal tunnel syndrome, left upper limb] Onset: 03-08-2025 Chronic Other screening for suspected conditions (not mental disorders or infectious disease) (16 sources) Patient encounter status; Translations: [Encounter for screening for malignant neoplasm of colon] 10-27-2021 Episodic Other upper respiratory disease (7 sources) Allergic rhinitis; Translations: [Allergic rhinitis, unspecified] 10-12-2020 Chronic Otitis media and related conditions (1 source) Dysfunction of bilateral eustachian tubes; Translations: [Unspecified Eustachian tube disorder, bilateral] 09-12-2023 Episodic Residual codes; unclassified (6 sources) Family history of cancer of colon; Translations: [Family history of malignant neoplasm of digestive organs] 10-29-2021 Episodic Residual codes; unclassified (6 sources) History of vaginal hysterectomy; Translations: [Acquired absence of both cervix and uterus] 11-26-2021 Episodic Residual codes; unclassified (5 sources) Positive measurement finding; Translations: [Positive test for human papillomavirus (HPV)] 01-13-2023 Episodic Skull and face fractures (2 sources) Unspecified fracture of facial bones, initial encounter for closed fracture; Translations: [Unspecified fracture of facial bones, initial encounter for closed fracture] Onset: 06-28-2024 Episodic Substance-related disorders (1 source) Tobacco user; Translations: [Nicotine dependence, unspecified, uncomplicated] 11-17-2006 Chronic Superficial injury; contusion (2 sources) Contusion of other part of head, initial encounter; Translations: [Contusion of other part of head, initial encounter] Onset: 07-03-2024 Episodic Urinary tract infections (12 sources) Recurrent urinary tract infection; Translations: [Urinary tract infection, site not specified] 10-13-2021 Episodic Past or Other Problems Problem Classification Problem Date Documented Da te Episodic/Chronic Abdominal pain (14 sources) Epigastric pain; Translations: [Epigastric pain] Onset: 06-14-2007 06-27-2021 Episodic Gastrointestinal hemorrhage (1 source) Melena; Translations: [Melena] Onset: 12-20-2024 Episodic Other non-traumatic joint disorders (1 source) Pain in right shoulder; Translations: [Pain in right shoulder] Onset: 04-20-2024 Episodic Residual codes; unclassified (1 source) Disturbance in sleep behavior; Translations: [Sleep disturbances] Onset: 11-17-2006 05-29-2008 Episodic Results Test Name Value Interpretation Reference Range Facility NCS and/or EMG Patienton NCS and/or EMG Patient [facility]monary Services/Neurology [address] [place] [address] MR#: [id number] Acct: [id number] Name: MARANDA FLOREZ Rep #: [id number] : 1980 44 From: Yobany Donaldson MD Referring Dr: Divya Ko MD [facility] Date: 03/20/25 Sex: F C NCS and/or EMG Patient Report Ordering Doctor: Divya Ko DATE OF SERVICE: 03/20/25 Clinical Summary: 44 year old female patient with symptoms of numbness, tingling, and pain in her hands. Nerve Conduction Studies Summary: Nerve conduction studies were performed in the bilateral upper extremities. The median-D2 SNAP distal latency was prolonged bilaterally with reduced amplitude on the right side. The right median- APB CMAP distal latency was prolonged. Needle Examination Summary: Needle examination of select muscles of the bilateral upper extremities was normal. Impression: This is an abnormal study. 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 2) Mild, left median mononeuropathy at the wrist (carpal tunnel syndrome), with sensory fiber demyelination Multi Select Codes Neurology Neurology Interp Codes: 96482-26 Musc test done w/n test comp (interp) (2) and 29976-52 Nrv cndj test 11-12 studies (interp) 03/20/25 1448 Date Yobany Donaldson MD CC: AIRPLANE PILOT PHOTOGRAMMETRYMakayla Georges; Dr. Yobany Donaldson MD; Dr. Divya Ko MD Date Dictated: 03/20/25 1310 Date Transcribed: 03/20/251309 Aircraft Design Engineer: Signed Normal [facility] Elbow min 3 Viewson 03-08-20 Elbow min 3 Views [facility] Imaging Services [address] [place] [address] Elbow min 3 Views MR#: [id number] Acct: [id number] Name: MARANDA FLOREZ Rep #: [id number] : 1980 F 44 From: Antoine Vincent PCP: VIVIANA Kellogg Status: DEP AMB Study: Elbow min 3 Views Date of Exam: 03/08/25 Exam# [id number] Ordering Dr: Divya Ko MD PROCEDURE: ELBOW MIN 3 VIEWS 03/08/2025 REASON FOR EXAM: ONGOING PAIN, NKI TECHNIQUE: Three-view left elbow series COMPARISON: None provided. RAD/Elbow min 3 Views IMPRESSION: No left elbow joint effusion is seen. Minimal degenerative changes are seen of the humeroulnar articulation, without significant joint narrowing noted. No fracture, dislocation, or other significant osseous or joint space abnormality is noted. Reading Location: [address] CC: VIVIANA Georges; Dr. Divya Ko MD Aircraft Design Engineer: Signed Normal [facility] Orthopedic Visit Reporton Orthopedic Visit Report [facility] [address] [place] [address] [address] [place], [place] [address] OFFICE VISIT Date of Service: 03/08/25 MR#: [id number] Acct: [id number] Name: MARANDA FLOREZ Rep #: [id number] : 1980 Provider: Dr. Divya moreno MD Age/Sex: 44/F Location: [facility] Status: Signed with Addenda ADDENDUM by Rebecca Marlow on 03/08/25 at 1333 Office Procedure Documentation entered by Rebecca Marlow 03/08/25 13:33: Ortho Injections Injections Yes Lateral Epicondyle Left Is this a patient provided medication?: No Details: Obtained consent for injection. Under sterile conditions, injected the patients left lateral epicondyle with 1cc Kenalog 3cc Bupivacaine. The patient tolerated the injection well without any noted complication. Patient should call our office if redness develops, pain worsens or if they have any concerns. Office Meds Kenalog 40 mg/mL suspension for injection Performing Provider: Divya Ko MD Performing Location: [facility] Administered by: Divya Ko MD on 03/08/25 13:31 Dose Route Admin Location Dispensed Lot Number Expiration Date ILC Man ufacturer 40 mg intra-articular left epicondyle 1 mL [id number] 04/27/27 2405-9188-23 [facility] Date cc: * Signed Intake Vital Signs 12/20/24 08:08 Height 4 ft 11 in Weight: 150 lb BMI 30.2 BP 124/82 H Blood Pressure Location Rt brachial Position Sitting Respiration 18 Pulse 67 Pulse Source Monitor Temp 97.6 F L Temp Source Temporal Pulse Oximetry (%) 100 Oxygen Delivery Method room air Intake Visit Reasons: LEFT ARM Chief Complaint: left elbow/bilateral carpal tunnel Accompanied by: Self Is patient in pain?: Yes Pain scale (1-10): 4 Allergies garlic Allergy (Verified 03/08/25 13:01) Swelling Medications ???Medication ???Instructions ???Recorded ???Confirmed ???Type epinephrine 0.3 mg/0.3 mL 0.3 mg IM PRN PRN Anaphylaxis 06/0903/08/25 History injection, auto-injector bupropion HCl 150 mg 24 hr tablet, 150 mg PO QAM 02/08/24 03/08/25 History extended release paroxetine HCl 40 mg tablet 40 mg PO DAILY #90 tabs 06/16/24 0 03/08/25 Rx sodium sul 1.479 gram-potas ch See Rx Instructions PO PER PKG DIR 12/20/24 03/08/25 Rx 0.188 gram-magnes sul 0.225 gram #24 tabs tablet (Sutab) bupropion HCl 300 mg 24 hr tablet, 300 mg PO DAILY 01/05/25 5 History extended release paroxetine HCl 20 mg tablet 20 mg PO DAILY 01/05/25 03/08/25 H istory [facility] Medical History Left carpal tunnel syndrome History of GI bleed Ren blood in stool Left lateral epicondylitis Right shoulder pain Wears contact lenses Depression Alcohol use Low iron Smoker History of echocardiogram Abnormal Pap smear of cervix Anxiety Surgical History H/O bilateral salpingectomy S/P vaginal hysterectomy Hx of colonoscopy Hx of bladder repair surgery H/O tubal ligation ( 03/2004) H/O dilation and curettage ( 05/24/14) H/O LEEP ( 01/29/09) Family History Mother Colon cancer Grandmother Kidney disease Social History adopted: No household members: family housing: house number of children: 3 current occupational status: employed current occupation: [employer] Smoking Status: Current every day smoker tobacco type: cigarettes alcohol intake: current alcohol intake frequency: a few times a week details: social substance use type: does not use caffeine: Yes what type of physical activity do you participate in: bicycling and weight training seatbelt use: always do you feel safe at home: Yes additional social history: Patient works for [employer] LEFT ARM Details: This documentation accurately reflects the service provided and the decisions made by me, Dr. Divya Ko MD 03/08/25 0823. Part of today???s visit was documented by [ ], acting as scribe. MARANDA FLOREZ is a 44 year old F here today for concern for L CTS. has had numbness and tingling in both hands been going on for 6 months getting worse present in the middle and ring finger. Tried night splinting those are not working. Never had surgery has not had nerve conduction studies has to shake it out the hands go to sleep it is quite bothersome for the patient. In addition the lateral aspect of the elbow is still bothering her she is desiring another injection. Last injection was about 6 months ago now. Coding Level of Care Code Attention Edith Diagnoses (more content not included)... Normal [facility] Surgery Visit Reporton 12-20 Surgery Visit Report [facility] [address] [place] [address] OFFICE VISIT Date of Service: 12/20/24 MR#: [id number] Acct: [id number] Name: MARANDA FLOREZ Rep #: [id number] : 1980 Provider: Dr. Conner cohn MD Age/Sex: 44/F Location: [facility] Status: Signed Intake Vital Signs 09/07/24 10:04 12/20/24 08:08 Height 4 ft 11 in 4 ft 11 in Weight: 150 lb BMI 30.2 BP 124/82 H Blood Pressure Location Rt brachial Position Sitting Respiration 18 Pulse 67 Pulse Source Monitor Temp 97.6 F L Temp Source Temporal Pulse Oximetry (%) 100 Oxygen Delivery Method room air Intake Visit Reasons: BLOOD IN STOOL Chief Complaint: blood in stool Is patient in pain?: Yes (occasional cramping in lower abdomen) Allergies garlic Allergy (Verified 12/20/24 08:09) Swelling Medications ???Medication ???Instructions ???Recorded ???Confirmed ???Type epinephrine 0.3 mg/0.3 mL 0.3 mg IM PRN PRN Anaphylaxis 06/0912/20/24 History injection, auto-injector bupropion HCl 150 mg 24 hr tablet, 150 mg PO QAM 02/08/24 12/20/24 History extended release paroxetine HCl 40 mg tablet 40 mg PO DAILY #90 tabs 06/16/24 0 12/20/24 Rx sodium sul 1.479 gram-potas ch See Rx Instructions PO PER PKG DIR 12/20/24 12/20/24 Rx 0.188 gram-magnes sul 0.225 gram #24 tabs tablet (Sutab) PFSH Medical History (Updated 12/20/24 @ 08:08 by Krista Nolasco LPN) Ren blood in stool Left lateral epicondylitis Right shoulder pain Wears contact lenses Depression Anxiety Alcohol use Low iron Smoker History of echocardiogram Acute eczema Abnormal Pap smear of cervix Anxiety Surgical History H/O bilateral salpingectomy S/P vaginal hysterectomy Hx of colonoscopy Hx of bladder repair surgery H/O tubal ligation ( 03/2004) H/O dilation and curettage ( 05/24/14) H/O LEEP ( 01/29/09) Family History Mother Colon cancer Grandmother Kidney disease Social History (Updated 12/20/24 @ 08:10 by Krista Nolasco LPN) adopted: No household members: family housing: house number of children: 3 current occupational status: employed current occupation: [employer] Smoking Status: Current every day smoker tobacco type: cigarettes alcohol intake: current alcohol intake frequency: a few times a week details: social substance use type: does not use caffeine: Yes what type of physical activity do you participate in: bicycling and weight training seatbelt use: always do you feel safe at home: Yes additional social history: Patient works for [employer] HPI HPI HPI: Patient is a 44-year-old female with family history of colon cancer in her parent at 52. The patient had her last colonoscopy in 2021 but there was a poor prep. She notes that she has been having blood in her stool which is bright red. She says this was going on for about a week but stopped this past Wednesday and has not been going on for the last 3 to 4 days. She denies abdominal pain. ROS General General: Yes fatigue; No weight change, appetite, colon cancer, breast cancer or weakness HEENT HEENT: No difficulty swallowing, eye injury, eye surgery, swollen glands or hoarseness Endo Endocrine: No thyroid disease, diabetes mellitus, thyroid cancer, Hair loss, heat intolerance or cold intolerance Skin Skin: No rash or changing moles Musc Musculoskeletal: No back problems, arthritis, rheumatoid arthritis, gout or joint pain Cardio Cardiovascular: No murmur, pacemaker, heart disease, atrial fibrillation, high blood pressure, heart attack, heart stent, palpitations, shortness of breath with exertion or chest pain Psych Psychiatric: Yes depression and anxiety; No hearing voices Resp Respiratory: No shortness of breath, No sleep apnea, No cough, No COPD, No asthma, No emphysema and No wheezing Gastro Gastrointestinal: Yes abdominal pain, No nausea or vomiting, No diarrhea, No constipation, Yes blood in stool, No acid reflux, No hemorrhoids, No ulcers, No gallbladder problem and No black,tarry stools Sathya Hematologic: No blood thinners, No blood disorders, No bleeding, No anemia and No blood clots Neuro Neurologic: No numbness, No tingling and No weakness Exam Const General: cooperative Orientation: alert and oriented x3 HENMT Head: normal to inspection Neck Neck: normal visual inspection and full ROM Chest Chest palpation inspection: normal inspection of the chest Resp Effort Inspection: normal respiratory effort Auscultation: clear to auscultation bilaterally Cardio Rate: regular rate Rhythm: regular rhythm (more content not included)... Normal [facility] Abdomen Single Viewon 2024 Abdomen Single View [facility] Imaging Services [address] [place], [place] [id number] Abdomen Single View MR#: [id number] Acct: [id number] Name: MARANDA FLOREZ Rep #: [id number] : 1980 F 44 From: Kenny alarcon MD PCP: VIVIANA Kellogg Status: REG CLI Study: Abdomen Single View Date of Exam: 12/12/24 Exam# [id number] Ordering Dr: Ursula Georges PROCEDURE: ABDOMEN SINGLE VIEW 12/12/2024 REASON FOR EXAM: ABDOMINAL PAIN TECHNIQUE: Supine and upright views of the abdomen were obtained. COMPARISON: None FINDINGS: Bowel gas: Moderate constipation identified with fecal material distributed throughout the colon. No evidence of bowel obstruction. Calcifications: No suspicious calcifications. Bones: The bones are unremarkable. Other: Calcified left phlebolith. RAD/Abdomen Single View IMPRESSION: Moderate amount of fecal material is seen throughout the colon. Reading Location: [place] [address] CC: VIVIANA Georges Aircraft Design Engineer: Signed Normal [facility] Orthopedic Visit Reporton Orthopedic Visit Report [facility] [address] [place] [address] [address] [place] [address] OFFICE VISIT Date of Service: 09/26/24 MR#: [id number] Acct: [id number] Name: MARANDA FLOREZ Rep #: [id number] : 1980 Provider: Dr. Divya moreno MD Age/Sex: 44/F Location: [facility] Status: Signed Intake Vital Signs 09/07/24 10:04 Height 4 ft 11 in Intake Visit Reasons: LEFT ELBOW Chief Complaint: Left Elbow Pain Accompanied by: Self Is patient in pain?: Yes Pain scale (1-10): 6 Allergies garlic Allergy (Verified 09/26/24 12:59) Swelling Medications ???Medication ???Instructions ???Recorded ???Confirmed ???Type bupropion HCl 300 mg 24 hr tablet, 300 mg PO DAILY 09/04/13 09/26/24 History extended release (Wellbutrin XL) epinephrine 0.3 mg/0.3 mL 0.3 mg IM PRN PRN Anaphylaxis 09/04/13 09/26/24 History injection, auto-injector lorazepam 0.5 mg tablet 0.5 mg PO QDAY PRN 02/07/24 09/26/24 History bupropion HCl 150 mg 24 hr tablet, 150 mg PO QAM 02/08/24 09/26/24 History extended release ondansetron 4 mg disintegrating 4 mg PO Q8H PRN nausea and 05/10/24 09/26/24 Rx tablet vomiting #20 tabs paroxetine HCl 40 mg tablet 40 mg PO DAILY #90 tabs 06/16/24 09/26/24 Rx PFSH Medical History (Updated 09/26/24 @ 13:32 by Divya Ko MD) Left lateral epicondylitis Right shoulder pain Wears contact lenses Depression Anxiety Alcohol use Low iron Smoker History of echocardiogram Acute eczema Abnormal Pap smear of cervix Anxiety Surgical History H/O bilateral salpingectomy S/P vaginal hysterectomy Hx of colonoscopy Hx of bladder repair surgery H/O tubal ligation ( 03/2004) H/O dilation and curettage ( 05/24/14) H/O LEEP ( 01/29/09) Family History Mother Colon cancer Grandmother Kidney disease Social History adopted: No household members: family housing: house number of children: 3 current occupational status: employed current occupation: [employer] Smoking Status: Current every day smoker tobacco type: cigarettes alcohol intake: current alcohol intake frequency: a few times a week details: social substance use type: does not use caffeine: Yes what type of physical activity do you participate in: bicycling and weight training seatbelt use: always do you feel safe at home: Yes additional social history: Patient works for [employer] HPI LEFT ELBOW Details: This documentation accurately reflects the service provided and the decisions made by me, Dr. Divya Ko MD 09/26/24 [id number]. Part of today???s visit was documented by [ ], acting as scribe. MARANDA FLOREZ is a 44 year old F here today for L elbow pain. RHD. 2 months. lateral side left elbow pain. both hands go numb at night a lot 4 months. not during the day. then goes away within a few minutes of changing positions. tried a brace, did some exercises online at home, no formal PT. no trauma. Ortho Exam General General: Yes no acute distress Neurologic: Yes alert and Yes oriented x3 Psychologic: Yes reasonable and appropriate Left Elbow Skin/Wound: Yes CDI, No eccymosis, No erythema and No Swelling Test: No Valgus Stress Test, No Varus Stress Test, No TTP Medial Epicondyle, Yes TTP Lateral Epicondyle, Yes Pain w/ resist wrist ext, Yes Pain w/ resist 3rd dig ext, No Thenar Atrophy and No Ulnar Nerve Subluxation ROM: Yes Flexion 0-140, Supination 0-90 and Pronation 0-80 Sensation: Radial: I, Ulnar: I and Median: I Motor: Elbow Extension: 5, Elbow Flexion: 5, EPL: 5, FDP-2: 5 and 1st Dorsal Interosseous: 5 Office Procedures Ortho Injections Injections Yes Lateral Epicondyle Left Is this a patient provided medication?: No Details: Obtained consent for injection. Under sterile conditions, injected the patients left elbow with 1mL Kenalog and 3mL Bupivacaine. The patient tolerated the injection well without any noted c omplication. Patient should call our office if redness develops, pain worsens or if they have any concerns. 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 Normal [facility] MR/BMS.BPon 09-07-2024 MR/BMS.BP [facility] [address] [place] [address], [address] [place] [id number] OFFICE VISIT Date of Service: 09/07/24 MR#: [id number] Acct: [id number] Name: MARANDA FLOREZ Rep #: [id number] : 1980 Provider: VIVIANA bernal Age/Sex: 44/F Location: [facility].V Status: Signed Intake Vital Signs 06/16/24 16:29 09/07/24 10:04 Height 4 ft 11 in 4 ft 11 in BP Intake Visit Reasons: 3 M FU Allergies garlic Allergy (Verified 05/01/24 16:29) Swelling PFSH Medical History Right shoulder pain Wears contact lenses Depression Anxiety Alcohol use Low iron Smoker History of echocardiogram Acute eczema Abnormal Pap smear of cervix Anxiety Surgical History H/O bilateral salpingectomy S/P vaginal hysterectomy Hx of colonoscopy Hx of bladder repair surgery H/O tubal ligation ( 03/2004) H/O dilation and curettage ( 05/24/14) H/O LEEP ( 01/29/09) Family History Mother Colon cancer Grandmother Kidney disease Social History adopted: No household members: family housing: house number of children: 3 current occupational status: employed current occupation: [employer] Smoking Status: Current every day smoker tobacco type: cigarettes alcohol intake: current alcohol intake frequency: a few times a week details: social substance use type: does not use caffeine: Yes what type of physical activity do you participate in: bicycling and weight training seatbelt use: always do you feel safe at home: Yes additional social history: Patient works for [employer] HPI History of Present Illness History provided by: patient Chief complaint: Depression HPI: Maranda Florez is a 44 year old female patient presenting today for a virtual follow up evaluation. Admits to feeling stress from work recently but is getting close to school break and is looking forward to this. Things have been going well at home. Reports mood has been good. Has not been feeling depressed or hopeless recently but feels she is slow to get motivated and get things done that she needs to do. Feels she has difficulty with getting started. Denies SI/HI. Does feel she has a lower mood and difficulty with motivation during this time of year regularly. Anxiety has still persisted but has been manageable for her. Has been using coping skills she has learned as a way to manage anxiety more recently. Does not feel it has been debilitating. Denies any panic attacks since last appointment. Does not feel that anxiety is an obstacle for her daily life. Is getting about 7 hours of sleep per night. Denies any difficulties falling asleep or staying asleep. Wakes up in the morning feeling well rested for the most part. Appetite has been good. Denies any changes in weight but would like to lose weight and has been trying to get to the gym a few times per week with her son. This tele-medicine visit was performed via audio/video technology. Previous similar episode: Yes Age of first onset of symptoms: 11-20 years Review of Systems Constitutional Reports: fatigue; Denies: fever(s), chills or change in weight Eyes Denies: change in vision or blurry vision Ears, Nose, Mouth, Throat Denies: throat pain or neck pain Cardiovascular Denies: chest pain, palpitations or dyspnea Respiratory Denies: dyspnea or wheezing Gastrointestinal Denies: abdominal pain, nausea, vomiting, diarrhea or constipation Genitourinary Denies: dysuria, urinary frequency or urinary urgency Musculoskeletal Reports: joint pain (shoulder pain ); Denies: back pain or neck pain Integumentary/Breast Reports: other (eczema ); Denies: rash, pruritus or erythema Neurological Denies: headache(s) Psychiatric Reports: anxiety and difficulty concentrating; Denies: panic attacks, change in sleep pattern, hopelessness, loss of interest, memory loss, visual hallucinations, auditory hallucinations, suicidal ideation or homicidal ideation Endocrine Reports: fatigue Hematologic/Lymphatic Denies: easy bruising Allergic/Immunologic Denies: wheezing Exam Mental Status Exam - Psych Appearance casually dressed, adequately groomed and no apparent distress Attitude cooperative and pleasant Activity/Motor Behavior MSE activity/motor behavior finding no adventitious movements and appropriate eye contact Speech regular rate, regular volume and regular prosody Mood euythmic Affect full range Thought Process linear, logical and coherent Thought Content no delusions and no hallucinations Suicidal Ideation none Homicidal Ideation none Attention impaired (per patient self report) Concentr (more content not included)... Normal [facility] CT MAXILLOFACIAL WITHOUT CON TRASTon 07-03-2024 CT MAXILLOFACIAL WITHOUT CONTRAST EXAMINATION: CT MAXILLOFACIAL WITHOUT CONTRAST HISTORY: ORDERING SYSTEM PROVIDED HISTORY: facial contusion, TECHNOLOGIST PROVIDED HISTORY: Injury/Trauma Reason for exam: facial contusion, swelling bruising around left eye Encounter Type: Initial Mechanism of injury: head buttted Jun.28 ORDERING SYSTEM PROVIDED DIAGNOSIS CODES: S00.83XA Facial contusion COMPARISON: Facial x-rays, 06/28/2024. TECHNIQUE: Dose reduction techniques were achieved by using automated exposure control and/or adjustment of mA and/or kV according to patient size and/or use of iterative reconstruction technique. Noncontrast axial CT images obtained through the maxillofacial bones. Reconstructions obtained in the sagittal and coronal planes. FINDINGS: There is some soft tissue swelling in the subcutaneous fat of the left cheek. There is a small hematoma in the left maxillary region/left cheek measuring 1.2 cm. There is a hematoma along the superolateral orbital rim on the left side measuring approximately 2 cm in diameter. Periorbital soft tissue swelling is noted. There is no intraorbital hematoma. Intraorbital contents are intact. The orbital cole are intact. The nasal bones are intact. Zygomatic arches are intact. The cole of the maxillary sinuses are intact. No maxillary fracture. No acute mandible fracture. Coordinator Integrated [employer] space musculature normal. Parotid glands normal. Submandibular glands normal. The tongue and floor of the mouth are normal. Nasopharynx, oropharynx and retropharyngeal space appear normal. Visualized intracranial contents are unremarkable. IMPRESSION: 1. Periorbital soft tissue swelling on the left. There is a hematoma in the soft tissues along the superolateral aspect of the orbital rim on the left measuring approximately 2 cm. There is a smaller hematoma in the left cheek/left maxillary region measuring 1.2 cm. 2. The intraorbital contents are intact. No intraorbital hematoma. 3. No orbital wall fracture. No acute maxillofacial bone fractures. [employer] Workstation ID: [id number] Dictated by: GIUSEPPE WATERMAN on WedJul 04, 2024 9:34:07 AM EDT Transcribed by: BREE LUCAS on WedJul 04, 2024 9:41:53 AM EDT Finalized by: GIUSEPPE WATERMAN on WedJul 05, 2024 8:18:25 AM EDT Normal [facility] Comment on above: Order Comment: Injur y/Trauma or Illness?:Injury/Trauma How long have you had these symptoms (acute/chronic)?:Acute Reason for exam?:facial contusion, swelling bruising around left eye Type of Exam?:Initial Mechanism of injury?:head buttted Jun. XR FACIAL BONES 3+ VIEWS ([facility])on 06-28-2024 XR FACIAL BONES 3+ VIEWS (STANDARD) EXAMINATION: XR FACIAL BONES 3+ VIEWS (STANDARD) 06/28/2024 3:50 pm HISTORY: ORDERING SYSTEM PROVIDED HISTORY: Closed fracture of facial bone, unspecified facial bone, initial encounter ([facility]) TECHNOLOGIST PROVIDED HISTORY: Injury/Trauma Reason for exam: Left Orbit swelling, bruising,pain Cancer History: u Surgery, RadiationHistory: u Encounter Type: Initial Mechanism of injury: head butted at work x 3 hrs ago ORDERING SYSTEM PROVIDED DIAGNOSIS CODES: S02.92XA Closed fracture of facial bone, unspecified facial bone, initial encounter ([facility]) COMPARISON: None FINDINGS: Four views of the facial bones are performed. No fractures identified by plain film. The paranasal sinuses are clear. There is artifact from the patient's ponytail on 2 of the images. IMPRESSION: No discrete facial bone fracture identified by plain film examination. Workstation ID: [id number] Dictated by: RENNY FERREIRA on WedJun 28, 2024 4:14:36 PM EDT Transcribed by: RENNY FERREIRA on WedJun 28, 2024 4:14:36 PM EDT Finalized by: RENNY FERREIRA on WedJun 28, 2024 4:14:36 PM EDT [facility] Comment on above: Order Comment: Injur y/Trauma or Illness?:Injury/Trauma How long have you had these symptoms (acute/chronic)?:Acute Reason for exam?:Left Orbit swelling, brusing,pain History of cancer?:u Surgeries, chemotherapy, or radiation?:u Type of Exam?:Initial Mechanism of injury?:head butted at work x 3 hrs ago /on 06-16-2024 MR/[address], [address] [place] [address] OFFICE VISIT Date of Service: 06/16/24 MR#: [id number] Acct: [id number] Name: MARANDA FLOREZ Rep #: [id number] : 1980 Provider: VIVIANA bernal Age/Sex: 44/F Location: [facility] Status: Signed Intake Vital Signs 05/01/24 16:30 06/16/24 16:29 Height 4 ft 11 in 4 ft 11 in Intake Visit Reasons: 6wfu Allergies garlic Allergy (Verified 05/01/24 16:29) Swelling PFSH Medical History Right shoulder pain Wears contact lenses Depression Anxiety Alcohol use Low iron Smoker History of echocardiogram Acute eczema Abnormal Pap smear of cervix Anxiety Surgical History H/O bilateral salpingectomy S/P vaginal hysterectomy Hx of colonoscopy Hx of bladder repair surgery H/O tubal ligation ( 03/2004) H/O dilation and curettage ( 05/24/14) H/O LEEP ( 01/29/09) Family History Mother Colon cancer Grandmother Kidney disease Social History adopted: No household members: family housing: house number of children: 3 current occupational status: employed current occupation: [employer] Smoking Status: Current every day smoker tobacco type: cigarettes alcohol intake: current alcohol intake frequency: a few times a week details: social substance use type: does not use caffeine: Yes what type of physical activity do you participate in: bicycling and weight training seatbelt use: always do you feel safe at home: Yes additional social history: Patient works for [employer] HPI History of Present Illness History provided by: patient Chief complaint: Depression HPI: Maranda Florez is a 44 year old female patient presenting today for a virtual follow up evaluation. Things have been going well. Has been taking paroxetine 40mg with her bupropion. Mood has been good. Denies SI/HI. Denies symptoms of depression. Sleep has been the same as before. Nightmares have gone away since discontinuing venlafaxine. Nausea went away without use of sertraline. Does still have anxiety consistently but feels it is mild. Has not caused any disruption to her life due to anxiety. Denies panic attacks. Reports she has been eating well. Denies changes in weight. Previous similar episode: Yes Age of first onset of symptoms: 11-20 years Review of Systems Constitutional Reports: fatigue; Denies: fever(s), chills or change in weight Eyes Denies: change in vision or blurry vision Ears, Nose, Mouth, Throat Denies: throat pain or neck pain Cardiovascular Denies: chest pain, palpitations or dyspnea Respiratory Denies: dyspnea or wheezing Gastrointestinal Denies: abdominal pain, nausea, vomiting, diarrhea or constipation Genitourinary Denies: dysuria, urinary frequency or urinary urgency Musculoskeletal Reports: joint pain (shoulder pain ); Denies: back pain or neck pain Integumentary/Breast Reports: other (eczema ); Denies: rash, pruritus or erythema Neurological Denies: headache(s) Psychiatric Reports: anxiety and difficulty concentrating; Denies: memory loss, visual hallucinations, auditory hallucinations, suicidal ideation or homicidal ideation Endocrine Reports: fatigue Hematologic/Lymphatic Denies: easy bruising Allergic/Immunologic Denies: wheezing Exam Mental Status Exam - Psych Appearance casually dressed, adequately groomed and no apparent distress Attitude cooperative and pleasant Activity/Motor Behavior MSE activity/motor behavior finding no adventitious movements and appropriate eye contact Speech regular rate, regular volume and regular prosody Mood euythmic Affect full range Thought Process linear, logical and coherent Thought Content no delusions and no hallucinations Suicidal Ideation none Homicidal Ideation none Attention impaired (per patient self report) Concentration impaired (per patient self report) Sensorium/Orientation awake, alert and oriented x3 Memory/Cognition intact Insight good Judgement good Exam Constitutional Common normals: no acute distress, average body habitus and patient oriented x3 General appearance: anxious Neuro Common normals: patient oriented x3 Speech: speech normal Gait (neuro): normal gait Psych Psychiatry clinicians, please identify where your Mental Status Exam is documented: Mental Status Exam documented in the separate MSE Assessment Plan Assessment Plan (1) Depression: Qualifiers: Depression Type: unspecified Qualified Code(s): F32.A - Depression, unspecified Plan: - Continue taking bupropion 450mg daily - Continue paroxeti (more content not included)... Normal [facility] MR/BMS.BPon 05-01-2024 MR/BMS.BP [facility] [address] [place] [id number] OFFICE VISIT Date of Service: 05/01/24 MR#: [id number] Acct: [id number] Name: MARANDA FLOREZDEANA Rep #: [id number] : 1980 Provider: VIVIANA bernal Age/Sex: 43/F Location: [facility] Status: Signed Intake Vital Signs 03/21/24 15:00 04/20/24 14:50 05/01/24 16:28 05/01/24 16:30 Height 4 ft 11 in 4 ft 11 in 4 ft 11 in 4 ft 11 in BP 142/88 H Blood Pressure Location Rt brachial Position Sitting Pulse 86 Pulse Source Monitor BP Intake Visit 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: 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 Accompanied by: Self Is patient in pain?: No Allergies garlic Allergy (Verified 05/01/24 16:29) Swelling Medications ???Medication ???Instructions ???Recorded ???Confirmed ???Type bupropion HCl 300 mg 24 hr tablet, 300 mg PO DAILY 09/04/13 05/01/24 History extended release (Wellbutrin XL) epinephrine 0.3 mg/0.3 mL 0.3 mg IM PRN PRN Anaphylaxis 09/04/13 05/01/24 History injection, auto-injector lorazepam 0.5 mg tablet 0.5 mg PO QDAY PRN 02/07/24 05/01/24 History bupropion HCl 150 mg 24 hr tablet, 150 mg PO QAM 02/08/24 05/01/24 History extended release venlafaxine 75 mg tablet 150 mg (2 x 75 mg) PO DAILY #60 03/21/24 05/01/24 Rx tabs sertraline 50 mg tablet 50 mg PO DAILY #30 tabs 05/01/24 05/01/24 Rx Current gender identity: female Nurse's Note: Presents to the office today for follow up. [facility] Medical History Right shoulder pain Wears contact lenses Depression Anxiety Alcohol use Low iron Smoker History of echocardiogram Acute eczema Abnormal Pap smear of cervix Anxiety Surgical History H/O bilateral salpingectomy S/P vaginal hysterectomy Hx of colonoscopy Hx of bladder repair surgery H/O tubal ligation ( 03/2004) H/O dilation and curettage ( 05/24/14) H/O LEEP ( 01/29/09) Family History Mother Colon cancer Grandmother Kidney disease Social History adopted: No household members: family housing: house number of children: 3 current occupational status: employed current occupation: [employer] Smoking Status: Current every day smoker tobacco type: cigarettes alcohol intake: current alcohol intake frequency: a few times a week details: social substance use type: does not use caffeine: Yes what type of physical activity do you participate in: bicycling and weight training seatbelt use: always do you feel safe at home: Yes additional social history: Patient works for [employer] History of Present Illness History provided by: patient HPI: Maranda Florez is a 43 year old female patient presenting today for a follow up evaluation. Reports that increasing the venlafaxine dose has caused increase sweating at bedtime and having nightmares that are all over the spectrum. Reports her nightmares to range from a bad day at work to her children passing away and this has become very distressing to her. Patient does state she would rather go back to taking paroxetine then continuing to have these nightmares, even thought paroxetine became ineffective with time. Has been getting interrupted sleep due to nightmares and is up every 2.5-3 hours. Is getting 6-7 hours per night. Feels energy is good throughout the day. Has been eating well. Denies any changes in weight. Reports mood to be the same. Reports still having feelings of depression. Denies SI/HI. Reports anxiety to be heightened but feels this is due to school starting back but this is a typical amount for this time of year. Denies panic attacks. Previous similar episode: Yes Age of first onset of symptoms: 11-20 years Review of Systems Constitutional Reports: fatigue; Denies: fever(s), chills or change in weight Eyes Denies: change in vision or blurry vision Ears, Nose, Mouth, Throat Denies: throat pain or neck pain Cardiovascular Denies: chest pain, palpitations or dyspnea Respiratory Denies: dyspnea or wheezing Gastrointestinal Denies: abdominal pain, nausea, vomiting, diarrhea or constipation Genitourinary Denies: dysuria, urinary frequency or urinary urgency Musculoskeletal Reports: joint pain (shoulder pain ); Denies: back pain or neck pain Integumentary/Breast Reports: other (eczema ); Denies: rash, pruritus or erythema Neurological Denies: headache(s) Psychiatric Reports: anxiety and difficulty concentrating; Denies: memory loss, visual hallucinations, auditory hallucinations, suicidal ideation or homicidal ideation Endocrine Reports: fatigue Hematologic/Lymphatic Denies: easy bruising Allergic/Immunologic Den (more content not included)... Normal [facility] Orthopedic Visit Reporton Orthopedic Visit Report [facility] [address] [place] [address] OFFICE VISIT Date of Service: 04/20/24 MR#: [id number] Acct: [id number] Name: MARANDA FLOREZ Rep #: [id number] : 1980 Provider: Dr. Divya moreno MD Age/Sex: 43/F Location: [facility] Status: Signed with Addenda ADDENDUM by Maranda Everett on 04/20/24 at 1546 Office Procedure Documentation entered by Maranda Everett 04/20/24 15:46: Ortho Injections Injections Yes Subacromial Injection Right Is this patient provided medication?: Yes Details: Obtained consent for injection. Under sterile conditions, injected the patients right subacromial shoulder with 2.0mL Kenalog and 4.0mL Bupivacaine. The patient tolerated the injection well without any noted complication. Patient should call our office if redness develops, pain worsens or if they have any concerns. Office Meds Kenalog 40 mg/mL suspension for injection Performing Provider: Divya Ko MD Performing Location: [facility] Administered by: Divya Ko MD on 04/20/24 15:28 Dose Route Admin Location Dispensed Lot Number Expiration Date NDC Man ufacturer 80 mg intra-articular Right Shoulder 2 mL [id number] 12/26/25 6683-3089-82 [facility] Date cc: * Signed Intake Vital Signs 03/21/24 15:00 04/05/24 08:24 04/20/24 14:50 Height 4 ft 11 in 4 ft 11 in 4 ft 11 in Weight: 146 lb 6 oz BMI 29.5 BP 130/86 H Blood Pressure Location Rt brachial Position Sitting Pulse 83 Pulse Source Monitor Intake Visit Reasons: RIGHT SHOULDER Accompanied by: Self Is patient in pain?: Yes Pain scale (1-10): 3 Allergies garlic Allergy (Verified 04/20/24 14:53) Swelling Medications ???Medication ???Instructions ???Recorded ???Confirmed ???Type bupropion HCl 300 mg 24 hr tablet, 300 mg PO DAILY 09/04/13 04/20/24 History extended release (Wellbutrin XL) epinephrine 0.3 mg/0.3 mL 0.3 mg IM PRN PRN Anaphylaxis 09/04/13 04/20/24 History injection, auto-injector lorazepam 0.5 mg tablet 0.5 mg PO QDAY PRN 02/07/24 04/20/24 History bupropion HCl 150 mg 24 hr tablet, 150 mg PO QAM 02/08/24 04/20/24 History extended release venlafaxine 75 mg tablet 150 mg (2 x 75 mg) PO DAILY #60 03/21/24 04/20/24 Rx tabs PFSH Medical History Wears contact lenses Depression Anxiety Alcohol use Low iron Smoker History of echocardiogram Acute eczema Abnormal Pap smear of cervix Anxiety Surgical History H/O bilateral salpingectomy S/P vaginal hysterectomy Hx of colonoscopy Hx of bladder repair surgery H/O tubal ligation ( 03/2004) H/O dilation and curettage ( 05/24/14) H/O LEEP ( 01/29/09) Family History Mother Colon cancer Grandmother Kidney disease Social History (Updated 04/20/24 @ 14:55 by Rebecca Marlow) adopted: No household members: family housing: house number of children: 3 current occupational status: employed current occupation: [employer] Smoking Status: Current every day smoker tobacco type: cigarettes Smoking packs per day: 0.5 Smoking cigarettes per day: 10.0 Years smoked: 30 Smoking pack-years: 15.00 alcohol intake: current alcohol intake frequency: a few times a week details: social substance use type: does not use caffeine: Yes what type of physical activity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
--- NOTE | 2025-03-24 08:00 | MRI_ITS ---
PROCEDURE: UPPER EXT JOINT ONLY(ROUTINE) 03/24/2025 REASON FOR EXAM: EVAL TENNIS ELBOW TECHNIQUE: UPPER EXT JOINT ONLY(ROUTINE) Multiplanar and multisequence images were obtained without IV contrast administration. COMPARISON: COMPARISON: 03-08-2025 CR FINDINGS: The common extensor tendon insertion appears thickened and showing interstitial high signal with partial ill definition of its fibers. No evidence of complete fibers interruption. The rest of the lateral compartment including the lateral epicondyle and radial collateral ligament appear unremarkable. The medial compartment including the medial epicondyle and common flexor tendon appear unremarkable. The rest of the visualized tendons and muscles appear unremarkable. Mild radiocapitellar and humeroulnar joint effusion. No olecranon bursitis seen. Normal osseous alignment is seen. No definite fracture or dislocation is noted. No marrow infiltrative lesions. Normal neurovascular tissues seen. MRI/Upper Ext Joint Only(Routine) IMPRESSION: Common extensor tendonitis with partial thickness tear. Mild radiocapitellar and humeroulnar joint effusion. Reading Location: [facility]
== END | disposition home or self-care (01) ==
LOC: MRI 07:32
PROVIDERS: PCP Nurse Practitioner Family; Referring Provider Orthopaedic Surgery Sports Medicine; Visit Provider Orthopaedic Surgery Sports Medicine
DX: M77.12 Lateral epicondylitis, left elbow (principal)
CPT/HCPCS: 73221

== ENCOUNTER → 2025-03-29 | Outpatient (CLI) | payer OTHER, SELFPAY | END | disposition home or self-care (01) | LOC: LABSPEC 14:56 | PROVIDERS: PCP Nurse Practitioner Family; Referring Provider Nurse Practitioner Family; Visit Provider Nurse Practitioner Family | DX: R87.810 Cervical high risk human papillomavirus (HPV) DNA test positive (principal) | CPT/HCPCS: 87624; 88175; G0145 ==

== ENCOUNTER → 2025-04-06 | Outpatient (CLI) | payer OTHER, SELFPAY ==
--- NOTE | 2025-04-06 15:15 | BI_ITS ---
EXAM: SCRN MAMM (CAD)W/WILL BILAT DATE: 04/06/2025 CLINICAL HISTORY: F, Age 44 y/o , SCREEN FOR BREAST CANCER TECHNIQUE: SCRN MAMM (CAD)W/WILL BILAT COMPARISON: Prior exam(s) were compared FINDINGS: TISSUE DENSITY: The breasts are heterogeneously dense, which may obscure small masses. Bilateral Breast Mammographic Findings: No suspicious masses, calcifications or other abnormalities are identified. Bilateral breast implants are present. BI/SCRN MAMM (CAD)W/WILL BILAT IMPRESSION: No mammographic evidence of malignancy in either breast OVERALL FINAL ASSESSMENT BI-RADS 2: BENIGN RECOMMENDATION: Routine annual follow-up in 1 Year A letter with findings and recommendations will be mailed to the patient. Reading Location: [id number]
== END | disposition home or self-care (01) ==
LOC: OPBI 15:07
PROVIDERS: PCP Nurse Practitioner Family; Referring Provider Nurse Practitioner Family; Visit Provider Nurse Practitioner Family
DX: Z12.31 Encounter for screening mammogram for malignant neoplasm of breast (principal)
CPT/HCPCS: 77063; 77067

== ENCOUNTER → 2025-04-18 | Outpatient (CLI) | payer OTHER, SELFPAY ==
[2025-04-18 13:44] LABS: Hematocrit 38.7 % (37-47); Hemoglobin 12.7 g/dL (12.0-15.0); Immature Granulocytes Count 0.020 X10^3/uL (0.0-0.0); Mean Corp Hgb Conc 32.8 g/dL (32-36); Mean Corpuscular Volume 91.3 fL (81-99); Mean Platelet Vol. 10.6 fl (6.2-12.0); NRBC Flagged by Analyzer 0 % (0-5); Platelet Count 264 K/mm3 (150-450); RBC Distribution Width CV 14.1 % (11.6-14.6); RBC Distribution Width SD 47.2 fl (35.1-43.9); Red Blood Count 4.24 M/mm3 (4.2-5.4); White Blood Count 7.0 K/mm3 (4.4-11.0)
[2025-04-18 16:38] LABS: AST(SGOT) 16 U/L (<=31); Alanine Aminotransfer ALT/SGPT 15 U/L (<=34); Albumin, Serum 3.8 g/dL (3.5-5.0); Alkaline Phosphatase 79 U/L (35-104); Anion Gap 11 (5-15); BUN 10 mg/dL (4-19); BUN/Creat Ratio 13.0 RATIO (10-20); Calcium,Total 8.8 mg/dL (7.6-11.0); Carbon Dioxide 22.8 mmol/L (21.0-32.0); Chloride 104 mmol/L (98-108); Cholesterol 185 mg/dL (<=200); Globulin 2.6 g/dL (2.2-4.2); Glucose 91 mg/dL (70-99); Low Density Lipoprotein Calc. 101 mg/dL; Potassium 4.0 mmol/L (3.3-5.1); Triglycerides 132 mg/dL; Very Low Density Lipoprotein 26 mg/dL (5-40); cholesterol:hdl ratio screen 3.20
== END | disposition home or self-care (01) ==
LOC: BFHLAB 08:32
PROVIDERS: PCP Nurse Practitioner Family; Referring Provider Nurse Practitioner Family; Visit Provider Nurse Practitioner Family
DX: Z00.01 Encounter for general adult medical examination with abnormal findings (principal)
CPT/HCPCS: 36415; 80053; 80061; 85025

== ENCOUNTER 2025-04-25 05:54 | Day surgery (SDC) | payer OTHER, SELFPAY ==
[2025-04-25] VITALS (11 sets, daily range): BP systolic 80–117; BP diastolic 44–69; PULSE 58–68; RESP 10–16; TEMP 36.2–36.6; O2SAT 86–99; BMI 28.9
--- OUTSIDE RECORDS SUMMARY | 2025-04-25 06:00 | XMS RPT_ITS | CCD ---
Author Organization [facility] Care Team Providers Care [employer] Academic Coach Name Role Phone Dr. Divya Wilkerson Primary Care Provider Dr. Divya Wilkerson Referring Provider Dr. Rosa Isela Downing Attending Provider Unavailable Primary Care Provider Unavailchris e Dr. Divya Wilkerson Referring Provider Unavailable Dr. Rosa Isela Downing Attending Provider [phone] [place]CET[place] Georges-C Ursula Primary Care Provider RICCI BREEN Referring Unavailable RICCI BREEN Attending Unavailable DIVYA WILKERSON Primary Care Unavailable DIVYA WILKERSON Primary Care Unavailable MICHAEL RAMIREZ Referring Unavailable MICHAEL RAMIREZ Attending Unavailable José Manuel, Ursula Primary Care Unavailable Zuri England Referring Unavailable Zuri England Attending Unavailable José Manuel, Ursula Primary Care Unavailable Divya Ko Consulting Unavailable Divya Ko Referring Unavailable Yobany Donaldson Attending Unavailable José Manuel, Ursula Referring Unavailable José Manuel, Ursula Primary Care Unavailable Terrie Clement Attending Unavailable José Manuel, Ursula Referring Unavailable José Manuel, Ursula Primary Care Unavailable Terrie Clement Attending Unavailable José Manuel, Ursula Primary Care Unavailable Terrie Clement Attending Unavailable José Manuel, Ursula Primary Care Unavailable Ashwin Jin Attending Unavailable José Manuel, Ursula Primary Care Unavailable José Manuel, Ursula Referring Unavailable Divya Ko Attending Unavailable Divya Ko Attending Unavailable José Manuel, Ursula Primary Care Unavailable José Manuel, Ursula Referring Unavailable José Manuel, Ursula Primary Care Unavailable Zuri England Attending Unavailable José Manuel, Ursula Referring Unavailable José Manuel, Ursula Primary Care Unavailable José Manuel, Ursula Referring Unavailable Conner Neff Attending Unavailable José Manuel, Ursula Primary Care Unavailable José Manuel, Ursula Referring Unavailable Divya Ko Attending Unavailable José Manuel, Ursula Primary Care Unavailable Divya Ko Attending Unavailable Divya Ko Referring Unavailable José Manuel, Ursula Primary Care Unavailable José Manuel, Ursula Referring Unavailable José Manuel, Ursula Attending Unavailable José Manuel, Ursula Primary Care Unavailable Barkman, Zuri Referring Unavailable Zuri England Attending Unavailable José Manuel, Ursula Primary Care Unavailable Divya Ko Attending Unavailable Divya Ko Referring Unavailable José Manuel, Ursula Attending Unavailable José Manuel, Ursula Referring Unavailable José Manuel, Ursula Primary Care Unavailable José Manuel, Ursula Primary Care Unavailable Divya Ko Referring Unavailable Stefani, Divya Attending Unavailable Allergies Allergy Classification Reported Allergen(s) Allergy Type Date of Onset Reaction(s) Facility (8 sources) Garlic preparation; Translations: [GARLIC] Drug Allergy 02-25-2009 Swelling [facility] (1 source) Garlic preparation Drug Allergy 04-11-2025 [facility] Repository Medications Current Medications Medication Drug Class(es) [...] 1 tablet by katrina th once daily. [id number] 0.3 ml EPINEPHrine 1 mg/ml auto-injector (7 [...] November 25, 2021 December 11, 2021 3:11pm [id number] 200 actuat albuterol 0.09 mg/actuat metered dose [...] 02-25-2009 02-25-2015 Episodic Other connective tissue disease (1 source) Lateral epicondylitis, left elbow; Translations: [Lateral epicondylitis, left elbow] Onset: 03-27-2025 Episodic Other liver diseases (6 sources) Enzyme level - finding; Translations: [Elevated transaminase measurement] 06-27-2021 Episodic Other nervous system disorders (2 sources) Carpal tunnel syndrome, bilateral upper limbs; Translations: [Carpal tunnel syndrome, bilateral upper limbs] Onset: 03-26-2025 Chronic Other nervous system disorders (1 source) Carpal tunnel syndrome, left upper limb; Translations: [Carpal tunnel syndrome, left upper limb] Onset: 03-08-2025 Chronic Other screening for suspected conditions (not mental disorders or infectious disease) (17 sources) Patient encounter status; Translations: [Encounter for screening for malignant neoplasm of colon] Onset: 04-11-2025 10-27-2021 Episodic Other upper respiratory disease (7 [...] test for human papillomavirus (HPV)] 01-13-2023 Episodic Sexually transmitted infections (not HIV or hepatitis) (1 source) Cervical high risk human papillomavirus (HPV) DNA test positive; Translations: [Cervical high risk human papillomavirus (HPV) DNA test positive] Onset: 04-03-2025 Episodic Skull and face fractures (2 sources) [...] source) Melena; Translations: [Melena] Onset: 12-20-2024 Episodic Residual codes; unclassified (1 source) Disturbance in sleep behavior; Translations: [Sleep disturbances] Onset: 11-17-2006 05-29-2008 Episodic Results Test Name Value Interpretation Reference Range Facility CBC W/Diff, Automatedon 03-28 Absolute Lymph 2.08 X10 3/uL Normal 0.83-4.51 [facility] Comment on above: Performed By: #### L 500.4050, L500.4100, L100.0100 #### [facility] [address] [place], [address] Absolute Neut 4.5 X10 3/uL Normal 2.0-7.7 [facility] Comment on above: Performed By: #### L 500.4050, L500.4100, L100.0100 #### [facility] [address] [place], [address] Basophils/100 WBC (Bld) 0.4 % Normal 0-1 [facility] Comment on above: Performed By: #### L 500.4050, L500.4100, L100.0100 #### [facility] [address] [place], [address] Eosinophils/100 WBC (Bld) 1.0 % Normal 0-5 [facility] Comment on above: Performed By: #### L 500.4050, L500.4100, L100.0100 #### [facility] [address] [place], [address] Erythrocyte distribution width (RBC) [Ratio] 14.1 % Normal 11.6-14.6 [facility] Comment on above: Performed By: #### L 500.4050, L500.4100, L100.0100 #### [facility] [address] [place], [address] Hematocrit (Bld) [Volume fraction] 38.7 % Normal 37-47 [facility] Comment on above: Performed By: #### L 500.4050, L500.4100, L100.0100 #### [facility] [address] [place], [address] Hemoglobin (Bld) [Mass/Vol] 12.7 g/dL Normal 12.0-15.0 [facility] Comment on above: Performed By: #### L 500.4050, L500.4100, L100.0100 #### [facility] [address] [place], [address] IG% 0.300 Normal 0.0-0.9 [facility] Comment on above: Result Comment: IG% - Immature Granulocytes (promyelocytes, myelocytes and metamyelocytes) > 1% indicates that a LEFT SHIFT is Present. Performed By: #### L 500.4050, L500.4100, L100.0100 #### [facility] [address] [place], [address] Lymphocytes/100 WBC (Bld) 29.8 % Normal 19-41 [facility] Comment on above: Performed By: #### L 500.4050, L500.4100, L100.0100 #### [facility] [address] [place], [address] MCH (RBC) [Entitic mass] 30.0 pg Normal 27.0-32.0 [facility] Comment on above: Performed By: #### L 500.4050, L500.4100, L100.0100 #### [facility] [address] [place], [address] MCHC (RBC) [Mass/Vol] 32.8 g/dL Normal 32-36 [facility] Comment on above: Performed By: #### L 500.4050, L500.4100, L100.0100 #### [facility] [address] [place], [address] MCV (RBC) [Entitic vol] 91.3 fL Normal 81-99 [facility] Comment on above: Performed By: #### L 500.4050, L500.4100, L100.0100 #### [facility] [address] [place], [address] Monocytes/100 WBC (Bld) 4.4 % Normal 0-10 [facility] Comment on above: Performed By: #### L 500.4050, L500.4100, L100.0100 #### [facility] [address] [place], [address] Neutrophils/100 WBC (Bld) 64.1 % Normal 47-70 [facility] Comment on above: Performed By: #### L 500.4050, L500.4100, L100.0100 #### [facility] [address] [place], [address] Nucleated RBC (Bld) [#/Vol] 0 10*3/uL Normal 0-5 [facility] Comment on above: Performed By: #### L 500.4050, L500.4100, L100.0100 #### [facility] [address] [place], [address] Platelet mean volume (Bld) [Entitic vol] 10.6 fL Normal 6.2-12.0 [facility] Comment on above: Performed By: #### L 500.4050, L500.4100, L100.0100 #### [facility] [address] [place], [address] Platelets (Bld) [#/Vol] 264 10*3/uL Normal 150-450 [facility] Comment on above: Performed By: #### L 500.4050, L500.4100, L100.0100 #### [facility] [address] [place], [address] RBC (Bld) [#/Vol] 4.24 10*6/uL Normal 4.2-5.4 [facility] Comment on above: Performed By: #### L 500.4050, L500.4100, L100.0100 #### [facility] [address] [place], [address] RDW SD 47.2 fl High 35.1-43.9 [facility] Comment on above: Performed By: #### L 500.4050, L500.4100, L100.0100 #### [facility] [address] [place], [address] WBC (Bld) [#/Vol] 7.0 10*3/uL Normal 4.4-11.0 [facility] Comment on above: Performed By: #### L 500.4050, L500.4100, L100.0100 #### [facility] [address] [place], [address] Comprehensive Metabolic Prof [facility] 04-18-2025 Albumin [Mass/Vol] 3.8 g/dL Normal 3.5-5.0 [facility] Comment on above: Performed By: #### L 500.4050, L500.4100, L100.0100 #### [facility] [address] [place], [address] Albumin/Globulin [Mass ratio] 1.5 {ratio} Normal 0.9-2.4 [facility] Comment on above: Performed By: #### L 500.4050, L500.4100, L100.0100 #### [facility] [address] [place], [address] ALK PHOS 79 U/L Normal 35-104 [facility] Comment on above: Performed By: #### L 500.4050, L500.4100, L100.0100 #### [facility] [address] [place], [address] ALT [Catalytic activity/Vol] 15 U/L Normal <=34 [facility] Comment on above: Performed By: #### L 500.4050, L500.4100, L100.0100 #### [facility] [address] [place], [address] AST [Catalytic activity/Vol] 16 U/L Normal <=31 [facility] Comment on above: Performed By: #### L 500.4050, L500.4100, L100.0100 #### [facility] [address] [place], [address] Bilirubin [Mass/Vol] 0.27 mg/dL Normal 0.00-1.30 [facility] Comment on above: Performed By: #### L 500.4050, L500.4100, L100.0100 #### [facility] [address] [place], [address] BUN/CRE 13.0 RATIO Normal 10-20 [facility] Comment on above: Performed By: #### L 500.4050, L500.4100, L100.0100 #### [facility] [address] [place], [address] Calcium [Mass/Vol] 8.8 mg/dL Normal 7.6-11.0 [facility] Comment on above: Performed By: #### L 500.4050, L500.4100, L100.0100 #### [facility] [address] [place], [address] Chloride [Moles/Vol] 104 mmol/L Normal 98-108 [facility] Comment on above: Performed By: #### L 500.4050, L500.4100, L100.0100 #### [facility] [address] [place], [address] CO2 [Moles/Vol] 22.8 mmol/L Normal 21.0-32.0 [facility] Comment on above: Performed By: #### L 500.4050, L500.4100, L100.0100 #### [facility] [address] [place], [address] Creatinine [Mass/Vol] 0.78 mg/dL Normal 0.70-1.20 [facility] Comment on above: Performed By: #### L 500.4050, L500.4100, L100.0100 #### [facility] [address] [place], [address] GAP 11 Normal 5-15 [facility] Comment on above: Performed By: #### L 500.4050, L500.4100, L100.0100 #### [facility] [address] [place], [address] GFR/1.73 sq M.predicted among non-blacks MDRD (S/P/Bld) [Vol rate/Area] 95 mL/min/{1.73_m2} Normal >60 [facility] Comment on above: Result Comment: mL/m in/1.73m2 CKD-EPI Creatinine Equation (2020) Performed By: #### L 500.4050, L500.4100, L100.0100 #### [facility] [address] [place], [address] Globulin (S) [Mass/Vol] 2.6 g/dL Normal 2.2-4.2 [facility] Comment on above: Performed By: #### L 500.4050, L500.4100, L100.0100 #### [facility] [address] [place], [address] Glucose [Mass/Vol] 91 mg/dL Normal 70-99 [facility] Comment on above: Performed By: #### L 500.4050, L500.4100, L100.0100 #### [facility] [address] [place], [address] Potassium [Moles/Vol] 4.0 mmol/L Normal 3.3-5.1 [facility] Comment on above: Performed By: #### L 500.4050, L500.4100, L100.0100 #### [facility] [address] [place], [address] Sodium [Moles/Vol] 138 mmol/L Normal 133-145 [facility] Comment on above: Performed By: #### L 500.4050, L500.4100, L100.0100 #### [facility] [address] [place], [address] T PROT 6.5 g/dL Normal 5.9-8.4 [facility] Comment on above: Performed By: #### L 500.4050, L500.4100, L100.0100 #### [facility] [address] [place], [address] Urea nitrogen [Mass/Vol] 10 mg/dL Normal 4-19 [facility] Comment on above: Performed By: #### L 500.4050, L500.4100, L100.0100 #### [facility] [address] [place], [address] Lipid Profileon 04-18-2025 CHOL:HDL 3.20 Normal [facility] Comment on above: Performed By: #### L 500.4050, L500.4100, L100.0100 #### [facility] [address] [place], [address] Cholesterol [Mass/Vol] 185 mg/dL Normal <=200 [facility] Comment on above: Result Comment: Chol esterol level, Desirable <200 mg/dL Borderline high cholesterol 200-239 mg/dL High cholesterol >=240 mg/dL Recommendations of the NCEP Adult Treatment Panel for the following risk-cutoff thresholds for the [place] population. Performed By: #### L 500.4050, L500.4100, L100.0100 #### [facility] [address] [place], [address] Cholesterol in HDL [Mass/Vol] 58 mg/dL Normal [facility] Comment on above: Result Comment: Krysta onal Cholesterol Education Program (NCEP) guidelines: <40 mg/dL: Low HDL-cholesterol (major risk factor for CHD) >= 60 mg/dL: High HDL-cholesterol (negative risk factor for CHD) HDL-cholesterol is affected by a number of factors, e.g. smoking, exercise, hormones, sex and age. Performed By: #### L 500.4050, L500.4100, L100.0100 #### [facility] [address] [place], [address] Cholesterol in LDL [Mass/Vol] 101 mg/dL Normal [facility] Comment on above: Result Comment: Bord psgrmn=162-054 mg/dL Higher Kjtb=844 mg/dL or greater Performed By: #### L 500.4050, L500.4100, L100.0100 #### [facility] [address] [place], [address] Cholesterol in VLDL [Mass/Vol] 26 mg/dL Normal 5-40 [facility] Comment on above: Performed By: #### L 500.4050, L500.4100, L100.0100 #### [facility] [address] [place], [address] Triglyceride [Mass/Vol] 132 mg/dL Normal [facility] Comment on above: Result Comment: The drugs N-Acetylcysteine and Metamizole may falsely depress this assay. Normal range: <150 mg/dL Borderline High: 150-199 mg/dL High: 200-499 mg/dL Very High: >500 mg/dL Performed By: #### L 500.4050, L500.4100, L100.0100 #### [facility] [address] [place], [address] PAP IG HPV APTIMA 16/18,45on 04-09-2025 ADEQ Comment Normal . [facility] Comment on above: Order Comment: Speci men Comment: No. of containers..01 ThinPrep Vial Result Comment: Sati sfactory for evaluation. No endocervical component is identified. Performed By: #### L 7400.0280 #### [facility] [address] [place], [address] COMM . Normal . [facility] Comment on above: Order Comment: Speci men Comment: No. of containers..01 ThinPrep Vial Performed By: #### L 7400.0280 #### [facility] [address] [place], [address] COMMENT TNP Normal . [facility] Comment on above: Order Comment: Speci men Comment: No. of containers..01 ThinPrep Vial Result Comment: The Thin Prep(R) Screw Machine Operator was unable to read this specimen. Therefore a manual review was performed. Performed By: #### L 7400.0280 #### [facility] [address] [place], [place], [address] DIAG Comment Normal . [facility] Comment on above: Order Comment: Speci men Comment: No. of containers..01 ThinPrep Vial Result Comment: NEGA TIVE FOR INTRAEPITHELIAL LESION OR MALIGNANCY. THIS SPECIMEN WAS RESCREENED PART OF OUR COMMUNICATION AND OUTREACH MANAGER PROGRAM. Performed By: #### L 7400.0280 #### [facility] [address] [place], [place], [address] HPV APTIMA, HR Negative Normal Negative [facility] Comment on above: Order Comment: Speci men Comment: No. of containers..01 ThinPrep Vial Result Comment: This nucleic acid amplification test detects fourteen high- risk HPV types (16,18,31,33,35,39,45,51,52,56,58,59,66,68) without differentiation. Performed By: #### L 7400.0280 #### [facility] [address] [place], [address] HPV Caty Rfx Comment Normal . [facility] Comment on above: Order Comment: Speci men Comment: No. of containers..01 ThinPrep Vial Result Comment: Crit eria not met, HPV Genotype not performed. Performed at: [address] [id number] Information Management Officer: Chantel London MD, Phone: [phone] Performed at: =[address] [id number] Information Management Officer: Chantel London MD, Phone: [phone] Performed By: #### L 7400.0280 #### [facility] [address] [place], [place], [address] PAPSMR Comment Normal . [facility] Comment on above: Order Comment: Speci men Comment: No. of containers..01 ThinPrep Vial Result Comment: The Pap smear is a screening test designed to aid in the detection of premalignant and malignant conditions of the uterine cervix. It is not a diagnostic procedure and should not be used as the sole means of detecting cervical cancer. Both false-positive and false-negative reports do occur. Performed By: #### L 7400.0280 #### [facility] [address] [place], [address] PERFORM Comment Normal . [facility] Comment on above: Order Comment: Speci men Comment: No. of containers..01 ThinPrep Vial Result Comment: Luz Fowler, Bat Boy/Girl (ASCP) Performed By: #### L 7400.0280 #### [facility] [address] [place], [address] QC REV Comment Normal . [facility] Comment on above: Order Comment: Speci men Comment: No. of containers..01 ThinPrep Vial Result Comment: Tierney Rhodes, Bat Boy/Girl (ASCP) Performed By: #### L 7400.0280 #### [facility] [address] [place], [address] SCRN MAMM (CAD)W/WILL BILATo n 04-06-2025 SCRN MAMM (CAD)W/WILL BILAT [facility] Imaging Services [address] [place] [address] SCRN MAMM (CAD)W/WILL BILAT MR#: [id number] Acct: [id number] Name: MARANDA FLOREZ Rep #: [id number] : 1980 F 44 From: Anuja Escamilla i, MD PCP: VIVIANA Kellogg Status: REG CLI Study: SCRN MAMM (CAD)W/WILL BILAT Date of Exam: 03/27 10/21 Exam# [id number] Ordering Dr: Zuri England EXAM: SCRN MAMM (CAD)W/WILL BILAT DATE: 04/06/2025 CLINICAL HISTORY: F, Age 44 y/o , SCREEN FOR BREAST CANCER TECHNIQUE: SCRN MAMM (CAD)W/WILL BILAT COMPARISON: Prior exam(s) were compared FINDINGS: TISSUE DENSITY: The breasts are heterogeneously dense, which may obscure small masses. Bilateral Breast Mammographic Findings: No suspicious masses, calcifications or other abnormalities are identified. Bilateral breast implants are present. BI/SCRN MAMM (CAD)W/WILL BILAT IMPRESSION: No mammographic evidence of malignancy in either breast OVERALL FINAL ASSESSMENT BI-RADS 2: BENIGN RECOMMENDATION: Routine annual follow-up in 1 Year A letter with findings and recommendations will be mailed to the patient. Reading Location: [id number] CC: VIVIANA England; VIVIANA Georges Lumber Material Handler: Signed Normal [facility] Orthopedic Visit Reporton Orthopedic Visit Report [facility] [address] [place] [address] OFFICE VISIT Date of Service: 04/02/25 MR#: [id number] Acct: [id number] Name: MARANDA FLOREZ Rep #: [id number] : 1980 Provider: Dr. Divya moreno MD Age/Sex: 44/F Location: [facility] Status: Signed Intake Vital Signs 12/20/24 08:08 03/29/25 12:55 Height 4 ft 11 in 4 ft 11 in Weight: 152 lb 8 oz BMI 30.8 BP 118/74 Intake Visit Reasons: LEFT ARM Chief Complaint: MRI and EMG Review Accompanied by: Self Is patient in pain?: No Allergies garlic Allergy (Verified 04/02/25 13:35) Swelling Medications ???Medication ???Instructions ???Recorded ???Confirmed ???Type epinephrine 0.3 mg/0.3 mL 0.3 mg IM PRN PRN Anaphylaxis 12/0 06/0904/02/25 History injection, auto-injector bupropion HCl 300 mg 24 hr tablet, 300 mg PO DAILY 01/05/25 5 History extended release paroxetine HCl 20 mg tablet 20 mg PO DAILY 01/05/25 04/02/25 H istory [facility] Medical History Bilateral carpal tunnel syndrome Left carpal tunnel syndrome History of GI [...] 3 current occupational status: employed current occupation: [employer] Smoking Status: Current every day smoker tobacco type: cigarettes alcohol intake: current alcohol intake frequency: a few times a week details: social substance use type: does not use caffeine: Yes what type of physical activity do you participate in: bicycling and weight training seatbelt use: always do you feel safe at home: Yes additional social history: Patient works for [employer] [facility] LEFT ARM Details: This documentation accurately reflects the service provided and the decisions made by me, Dr. Divya Ko MD 04/02/25 2882. Part of today???s visit was documented by [ ], acting as scribe. MARANDA FLOREZ is a 44 year old F here today for follow-up for bilateral upper extremity nerve conduction studies to assess for bilateral carpal tunnel syndrome. This is worse on the right side. The patient has tried nighttime splinting as well as other exercises for the upper extremity. Worse over time or bothersome to the patient. Supplemental Info [facility]/Neurology [address] [place] [address] MR#: [id number] Acct: [id number] Name: MAARNDA FLOREZ Rep #: [id number] : 1980 44 From: Yobany Donaldson MD Referring Dr: Divya Ko MD Status: REG CLI Location: PSN Date: 03/20/25 Sex: F C NCS and/or [...] Multi Select Codes Neurology Neurology Interp Codes: 99172-19 Musc test done w/n test comp (interp) (2) and 55437-92 Nrv cndj test 11-12 studies (interp) Coding Level of Care Code Off vis,est,level 4 Diagnoses Bilateral carpal tunnel syndrome G56.03 Assessment and Plan Assessment and Plan (1) Miguel (more content not included)... 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) [place] Cor[facility] Required: No Is patient in pain?: No Allergies garlic Allergy (Verified 03/29/25 12:56) Swelling Medications ???Medication ???Instructions ???Recorded ???Confirmed ???Type epinephrine 0.3 mg/0.3 mL 0.3 mg IM PRN PRN Anaphylaxis 06/0903/29/25 History injection, auto-injector bupropion HCl 300 mg 24 hr tablet, 300 mg PO DAILY 01/05/25 5 History extended release paroxetine HCl 20 mg tablet 20 mg PO DAILY 01/05/25 03/29/25 H istory Post menopausal: No Patient : No : No PFSH Medical History Left carpal tunnel syndrome History [...] 3 current occupational status: employed current occupation: [employer] Smoking Status: Current every day smoker tobacco type: cigarettes alcohol intake: current alcohol intake frequency: a few times a week details: social substance use type: does not use caffeine: Yes what type of physical activity do you participate in: bicycling and weight training seatbelt use: always do you feel safe at home: Yes additional social history: Patient works for [employer] History 3 Elective abortions Hx Para 3 Spontaneous abortions Hx # Term Pregnancies Ectopic pregnancies Hx # Pregnancies Multiple births # of living children 3 Past Pregnancies Del. Date Name GA/Weeks Outcome Route Bth Weight Infant Gen Labor Lgth Anesthesia Del Locatn Provider FOB Unknown [place] Unknown [place] Unknown [place] HPI Encounter for routine gynecological examination Details: MARANDA FLOREZ is a 44 year old who presents for annual exam. She reports no issues or concerns today. Last PAP: 2023; normal. HPV neg History of abnormal PAP: HPV pos 2022, LEEP 2009. Last mammogram: 2023; normal History of abnormal mammogram: no Colon cancer screenin-has one ordered--was unable to complete with poor prep--recommend return. She will schdule. Other preventative health care screenings: Ursula Georges; PCP Female Reproductive History Questions: metorrhagia: No, sexually active: Yes, dyspareunia: No and PCB: No ROS Const Constitutional: Reports as per HPI and fatigue; Denies increased appetite, poor appetite, weight gain or weight loss Cardio Card: Denies chest pain Resp Resp: Denies cough or dyspnea GI GI: Reports as per HPI; Denies abdominal pain, bloating, constipation, nausea or vomiting : Reports as per HPI and other; Denies difficulty voiding, dysuria, hematuria, nipple discharge, pelvic pain, prolapse symptoms, urinary frequency, urinary incontinence, urinary urgency, vaginal discharge, vaginal dryness, vaginal odor or vaginal pruritus Skin Skin/Breast: Denies changing lesions, breast mass, breast pain, breast skin changes or nipple discharge Psych Psych: Reports anxiety (controlled on medications) and depression; Denies homicidal ideation or suicidal ideation Exam Const General: cooperative, healthy appearing, comfortable, no acute distress, well groomed and well hydrated Nutritional Appearance: well nourished Orientation: alert, awake and oriented x3 HENMT Head: normal to inspection and normocephalic Ears: hearing grossly normal bilaterally and external ears normal Nose: external nose normal Face and sinus: normal facial exam Eyes General: appearance normal, both eyes and all related structures Neck Neck: normal visual inspection, full ROM and no lymphadenopathy Thyroid: thyroid normal Chest Chest palpa (more content not included)... Normal [facility] Upper Ext Joint Only(Routine )on 03-24-2025 Upper Ext Joint Only(Routine) [facility] Imaging Services [address] [place], [place] [id number] Upper Ext Joint Only(Routine) MR#: [id number] Acct: [id number] Name: MARANDA FLOREZ Rep #: [id number] : 1980 F 44 From: Mati mccarty MD PCP: Ursula Georges, STREET CLEANING EQUIPMENT OPERATOR-C Status: REG CLI Study: Upper Ext Joint Only(Routine) Date of Exam: 0 03/24/25 Exam# [id number] Ordering Dr: Divya Ko MD PROCEDURE: UPPER EXT JOINT ONLY(ROUTINE) 03/24/2025 REASON FOR EXAM: EVAL TENNIS ELBOW TECHNIQUE: UPPER EXT JOINT ONLY(ROUTINE) Multiplanar and multisequence images were obtained without IV contrast administration. COMPARISON: COMPARISON: 03-08-2025 CR FINDINGS: The common extensor tendon insertion appears thickened and showing interstitial high signal with partial ill definition of its fibers. No evidence of complete fibers interruption. The rest of the lateral compartment including the lateral epicondyle and radial collateral ligament appear unremarkable. The medial compartment including the medial epicondyle and common flexor tendon appear unremarkable. The rest of the visualized tendons and muscles appear unremarkable. Mild radiocapitellar and humeroulnar joint effusion. No olecranon bursitis seen. Normal osseous alignment is seen. No definite fracture or dislocation is noted. No marrow infiltrative lesions. Normal neurovascular tissues seen. MRI/Upper Ext Joint Only(Routine) IMPRESSION: Common extensor tendonitis with partial thickness tear. Mild radiocapitellar and humeroulnar joint effusion. Reading Location: [place] [address] CC: VIVIANA Georges; Dr. Divya Ko MD Lumber Material Handler: Signed Normal [facility] NCS and/or EMG Patienton NCS and/or EMG Patient [facility] Pulmonary Services/Neurology [address] [place] [address] MR#: [id number] Acct: [id number] Name: MARANDA FLOREZ Rep #: [id number] : 1980 44 From: Yobany Donaldson MD Referring Dr: Divya Ko MD Status: REG CLI Location: PSN Date: 03/20/25 Sex: F C NCS and/or [...] Multi Select Codes Neurology Neurology Interp Codes: 59049-53 Musc test done w/n test comp (interp) (2) and 48843-88 Nrv cndj test 11-12 studies (interp) 03/20/25 1448 Date Yobany Donaldson MD CC: STREET CLEANING EQUIPMENT OPERATOR-C Ursula Georges; Dr. Yobany Donaldson MD; Dr. Divya Ko MD Date Dictated: 03/20/25 1310 Date Transcribed: 03/20/25 131 Lumber Material Handler: Signed Normal [facility] Elbow min 3 Viewson 03-08-20 Elbow min 3 Views [facility] Imaging Services [address] [place] [id number] Elbow min 3 Views MR#: [id number] Acct: [id number] Name: MARANDA FLOREZ Rep #: [id number] : 1980 F 44 From: Antoine Vincent PCP: VIVIANA Kellogg Status: DEP AMB Study: Elbow min 3 Views Date of Exam: 03/08/25 Exam# [id number] Ordering Dr: Divya Ko MD PROCEDURE: ELBOW [...] joint space abnormality is noted. Reading Location: [address] CC: VIVIANA Georges; Dr. Divya Ko MD Lumber Material Handler: Signed Normal [facility] Orthopedic Visit Reporton Orthopedic Visit Report [facility] [address] [place] [address] OFFICE VISIT Date of Service: 03/08/25 MR#: [id number] Acct: [id number] Name: MARANDA FLOREZ Rep #: [id number] : 1980 Provider: Dr. Divya moreno MD Age/Sex: 44/F Location: [facility] Status: Signed with Addenda ADDENDUM by Rebecca [...] Performing Provider: Divya Ko MD Performing Location: [facility] Administered by: Divya Ko MD on 03/08/25 13:31 Dose Route Admin Location Dispensed Lot Number Expiration Date ND Man ufacturer 40 mg intra-articular left epicondyle 1 mL [id number] 04/27/27 2298-0610-51 [facility] Date cc: * Signed Intake Vital [...] mg PO DAILY 01/05/25 03/08/25 H istory PFSH Medical History Left carpal tunnel syndrome History [...] 3 current occupational status: employed 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 Coding Level of Care Code Attention Offal Baler Diagnoses (more content not included)... Normal [facility] Surgery Visit Reporton 12-20 Surgery Visit Report [facility] [address] [facility] [place] [address] OFFICE VISIT Date of Service: 12/20/24 MR#: [id number] Acct: [id number] Name: MARANDA FLOREZ Rep #: [id number] : 1980 Provider: Dr. Conner cohn MD Age/Sex: 44/F Location: [facility] Status: Signed Intake Vital Signs 09/07/24 10:04 [...] Medical History (Updated 12/20/24 @ 08:08 by Kirsta Nolasco LPN) Ren blood in stool Left [...] 3 current occupational status: employed current occupation: [employer] Smoking Status: Current every day smoker tobacco type: cigarettes alcohol intake: current alcohol intake frequency: a few times a week details: social substance use type: does not use caffeine: Yes what type of physical activity do you participate in: bicycling and weight training seatbelt use: always do you feel safe at home: Yes additional social history: Patient works for [employer] HPI HPI HPI: Patient is a 44-year-old [...] regular rhythm (more content not included)... Normal [facility] Abdomen Single Viewon 2024 Abdomen Single View [facility] Imaging Services [address] [place] [address] Abdomen Single View MR#: [id number] Acct: [id number] Name: MARANDA FLOREZ Rep #: [id number] : 1980 F 44 From: Kenny alarcon MD PCP: VIVIANA Kellogg Status: REG CLI Study: Abdomen Single View Date of Exam: 12/12/24 Exam# [id number] Ordering Dr: Ursula Georges PROCEDURE: ABDOMEN SINGLE [...] is seen throughout the colon. Reading Location: [facility] CC: VIVIAAN Georges Lumber Material Handler: Signed Normal [facility] Orthopedic Visit Reporton Orthopedic Visit Report [facility] [address] [place] [address] [place] [address] OFFICE VISIT Date of Service: 09/26/24 MR#: [id number] Acct: [id number] Name: MARANDA FLOREZ Rep #: [id number] : 1980 Provider: Dr. 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 Divya Ko MD 09/26/24 7206. 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 Normal [facility] CT MAXILLOFACIAL WITHOUT CON TRASTon 07-03-2024 CT [...] No maxillary fracture. No acute mandible fracture. Tool Rental Technician space musculature normal. Parotid glands normal. Submandibular [...] wall fracture. No acute maxillofacial bone fractures. DMG/ges Workstation ID: [id number] Dictated by: GIUSEPPE WATERMAN on WedJul 04, 2024 9:34:07 AM EDT Transcribed by: BREE LUCAS on WedJul 04, 2024 9:41:53 AM EDT Finalized by: GIUSEPPE WATERMAN on WedJul 05, 2024 8:18:25 AM EDT Normal [facility] Comment on above: Order Comment: Injur y/Trauma or Illness?:Injury/Trauma How long have you had these symptoms (acute/chronic)?:Acute Reason for exam?:facial contusion, swelling bruising around left eye Type of Exam?:Initial Mechanism of injury?:head buttted Jun.28 XR FACIAL BONES 3+ VIEWS ([facility])on 06-28-2024 XR FACIAL BONES 3+ VIEWS (STANDARD) EXAMINATION: XR FACIAL BONES 3+ VIEWS (STANDARD) 06/28/2024 3:50 pm HISTORY: ORDERING SYSTEM PROVIDED HISTORY: Closed fracture of facial bone, unspecified facial bone, initial encounter ([facility]) TECHNOLOGIST PROVIDED HISTORY: Injury/Trauma Reason for exam: Left Orbit swelling, bruising,pain Cancer History: u Surgery, RadiationHistory: u Encounter Type: Initial Mechanism of injury: head butted at work x 3 hrs ago ORDERING SYSTEM PROVIDED DIAGNOSIS CODES: S02.92XA Closed fracture of facial bone, unspecified facial bone, initial encounter ([facility]) COMPARISON: None FINDINGS: Four views of [...] on WedJun 28, 2024 4:14:36 PM EDT [facility] Comment on above: Order Comment: Injur y/Trauma or Illness?:Injury/Trauma How long have you had these symptoms (acute/chronic)?:Acute Reason for exam?:Left Orbit swelling, brusing,pain History of cancer?:u Surgeries, chemotherapy, or radiation?:u Type of Exam?:Initial Mechanism of injury?:head butted at work x 3 hrs ago MR/BMS.BPon 06-16-2024 MR/BMS.BP [address], [address] [place] [address] OFFICE VISIT Date of Service: 06/16/24 MR#: [id number] Acct: [id number] Name: MARANDA FLOREZ Rep #: [id number] : 1980 Provider: VIVIANA bernal Age/Sex: 44/F Location: [facility].BP[facility] Status: Signed Intake Vital Signs 05/01/24 16:30 06/16/24 16:29 Height 4 ft 11 in 4 ft 11 in BP Intake Visit Reasons: 6wfu Allergies garlic Allergy [...] 3 current occupational status: employed 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 Normal [facility] MR/BMS.BPon 05-01-2024 MR/BMS.BP [facility] [facility], [address] [place] [id number] OFFICE VISIT Date of Service: 05/01/24 MR#: [id number] Acct: [id number] Name: MARANDA FLOREZ Rep #: [id number] : 1980 Provider: VIVIANA bernal Age/Sex: 43/F Location: [facility] Status: Signed Intake Vital Signs 03/21/24 15:00 04/20/24 14:50 05/01/24 16:28 05/01/24 16:30 Height 4 ft 11 in 4 ft 11 in 4 ft 11 in 4 ft 11 in BP 142/88 H Blood Pressure Location Rt brachial Position Sitting Pulse 86 Pulse Source Monitor BP Intake Visit Reasons: 6 wk FU County Coroner Required: No Accompanied by: Self Is patient [...] to the office today for follow up. [facility] Medical History Right shoulder pain Wears contact [...] 3 current occupational status: employed current occupation: [employer] Smoking Status: Current every day smoker tobacco type: cigarettes alcohol intake: current alcohol intake frequency: a few times a week details: social substance use type: does not use caffeine: Yes what type of physical activity do you participate in: bicycling and weight training seatbelt use: always do you feel safe at home: Yes additional social history: Patient works for [employer] HPI History of Present Illness History provided [...] Allergic/Immunologic Den (more content not included)... Normal [facility] Cervical or vaginal specimen microscopic examination by liquid based cytology (reportOrdered By: Rosa Isela Downing on 01-06-2024 Cytology report Cyto stain.thin prep Doc (Cvx/Vag) Comment . [facility] Comment on above: Criteria not met, HP V Genotype not performed.Performed at: [address] [id number] Director: Chantel London MD, Phone: [phone] at: =[address] [id number] Director: Chantel London MD, Phone: [phone] Cervical or vagninal specime n microscopic examination by cytology stain (reported asOrdered By: Rosa Isela Downing on 01-06-2024 Cytology report Cyto stain Doc (Cvx/Vag) Comment . [facility] Comment on above: The Pap smear is [...] DNA Probe+sig amp Ql (Cvx) Negative Negative [facility] Comment on above: This nucleic acid am plification test detects fourteen high-risk HPV types (16,18,31,33,35,39,45,51,52,56,58,59,66,68)without differentiation. Laboratory - CytologyOrdered By: Rosa Isela Downing on 01-06-2024 Bat Boy/Girl Cyto stain Nom (Cvx/Vag) [ID] Comment . [facility] Comment on above: Adam Becerra , Foundation Assistant (ASCP) Laboratory - Miscellaneous t estsOrdered By: Rosa Isela Downing on 01-06-2024 Service comment (Unsp spec) [Interp] . . [facility] Thin prep Papanicolaou smear with manual screeningOrdered By: Rosa Isela Downing on 01-06-2024 Thin prep Papanicolaou smear with manual screening Comment . [facility] Comment on above: NEGATIVE FOR INTRAEP ITHELIAL LESION OR MALIGNANCY. Thin prep Papanicolaou smear with manual screening TNP [facility] Comment on above: Test not performedTh e Thin Prep(R) Screw Machine Operator was unable to read this specimen.Therefore a manual review was performed. CNOVon 09-12-2023 CNOV Office Visit (UCWSTR ) MARANDA FLOREZ ([id number]) 1980 F Date Time Provider Department 09/12/23 2:15 PM CALVIN LUTZ [facility] During your visit today, we recorded the following information about you: Temperature Pulse Respiration Blood pressure 98.5 degrees 94/minute 16/minute 120/83 Weight 63 kg Calvin Lutz APRN.FAMILY INDEPENDENCE CASE MANAGER 09/12/2023 2:41 PM Signed Subjective HPI Nontoxic-appearing [...] [599.0] since childhood has had vcug in [place]; results unknown Tobacco use disorder age 14 PAST SURGICAL HISTORY Procedure Laterality Date COLONOSCOPY FLX DX W/COLLJ SPEC WHEN PFRMD 11/23/08 [facility], rectal bleeding, colitis EXTRACTION, ERUPTED TOOTH OR EXPOSED ROOT (ELEVATION AND/OR FORCEPS REMOVAL) 1991 +/- wisdom teeth, gas LIG/TRNSXJ FLP TUBE ABDL/VAG APPR UNI/BI April 22, 2004 ([place]) SKIN BX, 1 LESION 01/2004 ([place]) Left posterior shoulder, wart/martha K ALLERGIES Garlic [...] Onset other (carcinoid syndrome [Other]) Mother (age [id number]) other (celiac disease [Other]) Mother colon cancer [...] TMs. Mouth/Throat: (more content not included)... Normal [facility] Absolute lymphocyte countOrd ered By: Ursula Hillgar on 03-08-2023 Lymphocytes Auto (Unsp spec) [#/Vol] 1.64 10*3/uL 0.83-4.51 [facility] Basophil percentageOrdered B y: Ursula Hillgar on 03-08-2023 Basophils/100 WBC (Bld) 0.3 % 0-1 [facility] Bilirubin [Mass/Vol] 0.40 mg/dL 0.20-1.00 [facility] Comment on above: For patients on eltr ombopag therapy, use of Dimension [place] TBIL is not recommended. Chloride [Moles/Vol] 107 mmol/L 98-107 [facility] Cholesterol [Mass/Vol] 205 mg/dL <200 [facility] Comment on above: <200 mg/dL Desirable 200-240 mg/dL Borderline >240 mg/dL High Risk Eosinophils/100 WBC (Bld) 0.6 % 0-5 [facility] Glucose [Mass/Vol] 82 mg/dL 74-106 [facility] Neutrophils (Bld) [#/Vol] 4.5 10*3/uL 2.0-7.7 [facility] Neutrophils/100 WBC (Bld) 69.7 % 47-70 [facility] Potassium [Moles/Vol] 3.5 mmol/L 3.5-5.1 [facility] Protein [Mass/Vol] 6.7 g/dL 6.4-8.2 [facility] Sodium [Moles/Vol] 140 mmol/L 136-145 [facility] Triglyceride [Mass/Vol] 332 mg/dL <199 [facility] Comment on above: The drugs N-Acetylcy steine and Metamizole may falsely depress this assay.Serum Triglycerides Reference Interval Normal <150 mg/dL Borderline high 150 - 199 mg/dL High 200 - 499 mg/dL Very High > or = 500 mg/dL WBC (Bld) [#/Vol] 6.5 10*3/uL 4.4-11.0 [facility] Blood erythrocytes count (nu mber/volume)Ordered By: Ursula Georges on 03-08-2023 RBC (Bld) [#/Vol] 4.09 10*6/uL 4.2-5.4 [facility] Blood hemoglobin measurement (mass/volume)Ordered By: Ursula Georges on 03-08-2023 Hemoglobin (Bld) [Mass/Vol] 13.0 g/dL 12.0-15.0 [facility] Blood lymphocytes/100 leukoc ytesOrdered By: Ursula Georges on 03-08-2023 Lymphocytes/100 WBC (Bld) 25.3 % 19-41 [facility] Blood monocytes/100 leukocyt esOrdered By: Ursula Georges on 03-08-2023 Monocytes/100 WBC (Bld) 3.9 % 0-10 [facility] Blood platelet mean volumeOr dered By: Ursula Georges on 03-08-2023 Platelet mean volume (Bld) [Entitic vol] 10.0 fL 6.2-12.0 [facility] Determination of erythrocyte mean corpuscular volume (MCV)Ordered By: Ursula Georges on 03-08-2023 MCV (RBC) [Entitic vol] 94.9 fL 81-99 [facility] Hematocrit Auto (Bld) [Volum e fraction]Ordered By: Ursula Georges on 03-08-2023 Hematocrit (Bld) [Volume fraction] 38.8 % 37-47 [facility] Laboratory - Chemistry and C hemistry - challengeOrdered By: Ursulajoanie Georges on 03-08-2023 ALP [Catalytic activity/Vol] 72 U/L 45-117 [facility] ALT [Catalytic activity/Vol] 18 U/L 13-56 [facility] CO2 [Moles/Vol] 25.0 mmol/L 21.0-32.0 [facility] Globulin (S) [Mass/Vol] 3.5 g/dL 2.2-4.2 [facility] Urea nitrogen/Creatinine [Mass ratio] 12.8 mg/mg 10-20 [facility] - Hematology and Cell countsOrdered By: Ursula Georges on 03-08-2023 Erythrocyte distribution width (RBC) [Entitic vol] 43.0 fL 35.1-43.9 [facility] Erythrocyte distribution width (RBC) [Ratio] 12.2 % 11.6-14.6 [facility] Immature granulocytes/100 WBC (Bld) 0.200 % 0.0-0.9 [facility] Comment on above: IG% - Immature Granu locytes (promyelocytes, myelocytes and metamyelocytes) > 1% indicates that a LEFT SHIFT is Present. MCH (RBC) [Entitic mass] 31.8 pg 27.0-32.0 [facility] Nucleated RBC/100 WBC (Bld) [Ratio] 0 % 0-5 [facility] MCHC Auto (RBC) [Mass/Vol]Or dered By: Ursula Georges on 03-08-2023 MCHC (RBC) [Mass/Vol] 33.5 g/dL 32-36 [facility] No Panel InformationOrdered By: Ursula Georges on 03-08-2023 Estimated GFR (MDRD) Amer 103 mL/min >60 [facility] Comment on above: GFR Calc Estimated GFR (MDRD) Non-Af Amer 85 mL/min >60 [facility] Comment on above: Non- GFR Calc Platelets bldOrdered By: Saira Georges on 03-08-2023 Platelets (Bld) [#/Vol] 260 10*3/uL 150-450 [facility] Serum or plasma albumin pollo urement (mass/volume)Ordered By: Ursula Georges on 03-08-2023 Albumin [Mass/Vol] 3.2 g/dL 3.2-5.0 [facility] Serum or plasma albumin/glob ulin mass ratioOrdered By: Ursula Georges on 03-08-2023 Albumin/Globulin [Mass ratio] 0.9 {ratio} 0.9-2.4 [facility] Serum or plasma calcium pollo urement (mass/volume)Ordered By: Ursula Georges on 03-08-2023 Calcium [Mass/Vol] 8.4 mg/dL 8.5-10.1 [facility] Serum or plasma cholesterol in HDL measurement (mass/volume)Ordered By: Ursula Georges on 03-08-2023 Cholesterol in HDL [Mass/Vol] 53 mg/dL >40 [facility] Comment on above: The drugs N-Acetylcy steine and Metamizole may falsely depress this assay. Reference Range HDL <40 mg/dL Low HDL Cholesterol HDL >or= 60 mg/dL High HDL Cholesterol Serum or plasma cholesterol in VLDL measurement (mass/volume)Ordered By: Ursula Georges on 03-08-2023 Cholesterol in VLDL [Mass/Vol] 66 mg/dL 5-40 [facility] Serum or plasma creatinine m easurement (mass/volume)Ordered By: Ursula Georges on 03-08-2023 Creatinine [Mass/Vol] 0.78 mg/dL 0.55-1.02 [facility] Comment on above: The validity of the calculated GFR & GFRAA in patients over 70 years has not been determined. Clinical correlation is essential. Serum or plasma low density lipoprotein (LDL) cholesterol measurement (mass/volume)Ordered By: Ursula Georges on 03-08-2023 Cholesterol in LDL [Mass/Vol] 86 mg/dL 0-130 [facility] Serum or plasma urea nitroge n measurement (mass/volume)Ordered By: Ursula Georges on 03-08-2023 Urea nitrogen [Mass/Vol] 10 mg/dL 7-18 [facility] Thin prep Papanicolaou smear with manual screeningOrdered By: Ursulajoanie Georges on 03-08-2023 Thin prep Papanicolaou smear with manual screening 11 U/L 15-37 [facility] Thin prep Papanicolaou smear with manual screening 8 5-15 [facility] Absolute lymphocyte countOrd ered By: Dr. Greer on 01-09-2023 Lymphocytes Auto (Unsp spec) [#/Vol] 2.19 10*3/uL 0.83-4.51 [facility] Basophil percentageOrdered B y: Dr. Greer on 01-09-2023 Basophils/100 WBC (Bld) 0.3 % 0-1 [facility] Cholesterol [Mass/Vol] 219 mg/dL <200 [facility] Comment on above: <200 mg/dL Desirable 200-240 mg/dL Borderline >240 mg/dL High Risk Eosinophils/100 WBC (Bld) 1.5 % 0-5 [facility] Neutrophils (Bld) [#/Vol] 3.8 10*3/uL 2.0-7.7 [facility] Neutrophils/100 WBC (Bld) 58.6 % 47-70 [facility] Triglyceride [Mass/Vol] 129 mg/dL <199 [facility] Comment on above: The drugs N-Acetylcy steine and Metamizole may falsely depress this assay.Serum Triglycerides Reference Interval Normal <150 mg/dL Borderline high 150 - 199 mg/dL High 200 - 499 mg/dL Very High > or = 500 mg/dL WBC (Bld) [#/Vol] 6.5 10*3/uL 4.4-11.0 [facility] Blood erythrocytes count (nu mber/volume)Ordered By: Dr. Greer on 01-09-2023 RBC (Bld) [#/Vol] 4.06 10*6/uL 4.2-5.4 [facility] Blood hemoglobin measurement (mass/volume)Ordered By: Dr. Greer on 01-09-2023 Hemoglobin (Bld) [Mass/Vol] 12.8 g/dL 12.0-15.0 [facility] Blood lymphocytes/100 leukoc ytesOrdered By: Dr. Greer on 01-09-2023 Lymphocytes/100 WBC (Bld) 33.9 % 19-41 [facility] Blood monocytes/100 leukocyt esOrdered By: Dr. Greer on 01-09-2023 Monocytes/100 WBC (Bld) 5.4 % 0-10 [facility] Blood platelet mean volumeOr dered By: Dr. Greer on 01-09-2023 Platelet mean volume (Bld) [Entitic vol] 9.9 fL 6.2-12.0 [facility] Determination of erythrocyte mean corpuscular volume (MCV)Ordered By: Dr. Greer on 01-09-2023 MCV (RBC) [Entitic vol] 93.3 fL 81-99 [facility] Hematocrit Auto (Bld) [Volum e fraction]Ordered By: Dr. Greer on 01-09-2023 Hematocrit (Bld) [Volume fraction] 37.9 % 37-47 [facility] Laboratory - Hematology and Cell countsOrdered By: Dr. Greer on 01-09-2023 Erythrocyte distribution width (RBC) [Entitic vol] 41.4 fL 35.1-43.9 [facility] Erythrocyte distribution width (RBC) [Ratio] 12.0 % 11.6-14.6 [facility] Immature granulocytes/100 WBC (Bld) 0.300 % 0.0-0.9 [facility] Comment on above: IG% - Immature Granu locytes (promyelocytes, myelocytes and metamyelocytes) > 1% indicates that a LEFT SHIFT is Present. MCH (RBC) [Entitic mass] 31.5 pg 27.0-32.0 [facility] Nucleated RBC/100 WBC (Bld) [Ratio] 0 % 0-5 [facility] MCHC Auto (RBC) [Mass/Vol]Or dered By: Dr. Greer on 01-09-2023 MCHC (RBC) [Mass/Vol] 33.8 g/dL 32-36 [facility] No Panel InformationOrdered By: Dr. Greer on 01-09-2023 Thyroid Stimulating Hormone (TSH) 1.14 uIU/mL 0.358-3.74 [facility] Platelets bldOrdered By: Dr. Greer on 01-09-2023 Platelets (Bld) [#/Vol] 233 10*3/uL 150-450 [facility] Serum or plasma cholesterol in HDL measurement (mass/volume)Ordered By: Dr. Greer on 01-09-2023 Cholesterol in HDL [Mass/Vol] 55 mg/dL >40 [facility] Comment on above: The drugs N-Acetylcy steine and Metamizole may falsely depress this assay. Reference Range HDL <40 mg/dL Low HDL Cholesterol HDL >or= 60 mg/dL High HDL Cholesterol Serum or plasma cholesterol in VLDL measurement (mass/volume)Ordered By: Dr. Greer on 01-09-2023 Cholesterol in VLDL [Mass/Vol] 26 mg/dL 5-40 [facility] Serum or plasma low density lipoprotein (LDL) cholesterol measurement (mass/volume)Ordered By: Dr. Greer on 01-09-2023 Cholesterol in LDL [Mass/Vol] 138 mg/dL 0-130 [facility] Cervical or vagninal specime n microscopic examination by cytology stain (reported asOrdered By: Dr. Downing on 01-04-2023 Cytology report Cyto stain Doc (Cvx/Vag) Comment . [facility] Comment on above: The Pap smear is [...] DNA Probe+sig amp Ql (Cvx) Negative Negative [facility] Detection in cervical specim en of any of human papilloma virus (HPV) 16, 18, 31, 33,Ordered By: Dr. Downing on 01-04-2023 HPV 16+18+31+33+35+39+45+51 +52+56+58+59+66+68 DNA Probe+sig amp Ql (Cvx) Positive Negative [facility] Comment on above: This nucleic acid am plification test detects fourteen high-risk HPV types (16,18,31,33,35,39,45,51,52,56,58,59,66,68)without differentiation. Laboratory - CytologyOrdered By: Dr. Downing on 01-04-2023 Bat Boy/Girl Cyto stain Nom (Cvx/Vag) [ID] Comment . [facility] Comment on above: Divya Christian, Cyto technologist (ASCP) Laboratory - Miscellaneous t estsOrdered By: Dr. Downing on 01-04-2023 Service comment (Unsp spec) [Interp] Comment . [facility] Comment on above: This liquid based Th inPrep(R) pap test was screened withthe use of an image guided system. Service comment (Unsp spec) [Interp] . . [facility] Liquid-based cerv Pap + CT/G C by MARIN w reflex to high-risk HPV for ASCUSOrdered By: Dr. Downing on 01-04-2023 Cytology report Cyto stain.thin prep Doc (Cvx/Vag) Comment . [facility] Comment on above: Criteria met, see HP V Genotype results. No Panel InformationOrdered By: Dr. Downing on 01-04-2023 HPV Type 18 Comment Negative Negative [facility] Comment on above: Performed at: [facility] - [facility] [address] [id number] Director: Chantel London MD, Phone: [phone] at: =G - [facility] [address] [id number] Director: Chantel London MD, Phone: [phone] Pathology report final diagnosis Narrative Comment . [facility] Comment on above: NEGATIVE FOR INTRAEP ITHELIAL LESION OR MALIGNANCY. Vital Signs Date Time Vital Sign Value Performing Clinician Facility 01-06-2024 16:17-0400 Body height 149.[address] Divya Wilkerson [facility] 01-06-2024 16:11-0400 Body mass index (BMI) [Ratio] 28.8 kg/m2 [facility] 01-06-2024 16:11-0400 Body weight 64.[address] Divya Wilkerson [facility] 01-06-2024 16:11-0400 Diastolic blood pressure 95 mm[Hg] Dr. Divya Wilkerson [facility] 01-06-2024 16:11-0400 Systolic blood pressure 146 mm[Hg] Dr. Divya Wilkerson [facility] 09-12-2023 14:18-0500 Body temperature 98.49 [degF] [facility]OM WORK[facility].FAMILY INDEPENDENCE CASE MANAGER Work Phone: [facility] 09-12-2023 14:18-0500 Body weight 63.05 kg [facility] RACK ROOM WORKER.FAMILY INDEPENDENCE CASE MANAGER Work Phone: [facility] 09-12-2023 14:18-0500 Diastolic blood pressure 83 mm[Hg] Calvin Pendlebury RACK ROOM WORKER.FAMILY INDEPENDENCE CASE MANAGER Work Phone: [facility] 09-12-2023 14:18-0500 Heart rate 94 /min Calvin Pendlebury RACK ROOM WORKER.FAMILY INDEPENDENCE CASE MANAGER Work Phone: [facility] 09-12-2023 14:18-0500 Respiratory rate 16 /min [facility] RACK ROOM WORKER.FAMILY INDEPENDENCE CASE MANAGER Work Phone: [facility] 09-12-2023 14:18-0500 SaO2% (BldA) [Mass fraction] 98 % [facility] RACK ROOM WORKER.FAMILY INDEPENDENCE CASE MANAGER Work Phone: [facility] 09-12-2023 14:18-0500 Systolic blood pressure 120 mm[Hg] [facility] RACK ROOM WORKER.FAMILY INDEPENDENCE CASE MANAGER Work Phone: [facility] 01-04-2023 13:11-0400 Body height 149.[address] Divya Wilkerson Work Phone: [facility] 01-04-2023 13:11-0400 Body mass index (BMI) [Ratio] 29.5 kg/m2 Dr. Divya Wilkerson Work Phone: [facility] 01-04-2023 13:11-0400 Body weight 66.[address] Divya Wilkerson Work Phone: [facility] 01-04-2023 13:11-0400 Diastolic blood pressure 76 mm[Hg] Dr. Divya Wilkerson Work Phone: [facility] 01-04-2023 13:11-0400 Systolic blood pressure 133 mm[Hg] Dr. Divya Wilkerson Work Phone: [facility] Encounters Encounter Date Encounter Type Care Provider Facility Start: 04-25-2025 ambulatory Ursula José Manuel Facility:[facility] Start: 04-23-2025 Encounter for genera l adult medical examination with abnormal findings Ursula José Manuel [facility] Start: 04-18-2025 End: 04-18-2025 ambulatory Ursula José Manuel Facility:[facility] Start: 04-06-2025 End: 04-06-2025 ambulatory Jackson José Manuel Facility:[facility] Start: 04-02-2025 End: 04-02-2025 ambulatory Divya Ko Facility:[facility] Start: 03-29-2025 End: 03-29-2025 ambulatory Ursula José Manuel Facility:[facility] Start: 03-29-2025 End: 03-29-2025 ambulatory Ursula José Manuel Facility:[facility] Start: 03-24-2025 End: 03-24-2025 ambulatory Ursula José Manuel Facility:[facility] Start: 03-20-2025 ambulatory Ursula José Manuel [facility] Start: 03-20-2025 End: 03-20-2025 ambulatory Ursula José Manuel Facility:[facility] Start: 03-08-2025 End: 03-08-2025 ambulatory Ursula José Manuel Facility:[facility] Start: 12-20-2024 End: 12-20-2024 ambulatory Ursula José Manuel Facility:[facility] Start: 12-12-2024 End: 12-12-2024 ambulatory Ursula José Manuel Facility:[facility] Start: 09-26-2024 End: 09-26-2024 ambulatory Ursula José Manuel Facility:[facility] Start: 09-07-2024 End: 09-07-2024 ambulatory Ursula José Manuel Facility:[facility] Start: 07-03-2024 End: 07-03-2024 ambulatory DIVYA HOPE [facility] Start: 06-28-2024 End: 06-28-2024 amb[facility] Start: 06-16-2024 End: 06-16-2024 ambulatory Ursula José Manuel Facility:[facility] Start: 05-01-2024 End: 05-01-2024 ambulatory Jackson José Manuel Facility:[facility] Start: 01-13-2024 End: 01-13-[address] Divya Wilkerson [facility] Work Phone: Start: 01-13-2024 End: 01-13-[address] Divya Wilkerson [facility] Work Phone: Start: 01-06-2024 End: 01-06-[address] Divya Wilkerson [facility] Work Phone: Start: 01-06-2024 End: 01-06-[address] Divya Wilkerson [facility], Specimen Work Phone: Start: 01-06-2024 End: 01-06-[address] Divya Wilkerson [facility] Work Phone: Start: 09-12-2023 End: 09-12-2023 ambulatory Facility:[facility] Start: 09-12-2023 End: 09-12-2023 Office outpatient visit 15 minutes Calvin Lutz APRN.CNP Work Phone: [facility] Comment on above: Eustachian tube dysf unction, bilateral (Primary Dx) Start: 03-08-2023 End: 03-08-[address] Divya Wilkerson Work Phone: [facility] Work Phone: Start: 03-08-2023 End: 03-08-[address] Divya Wilkerson Work Phone: [facility], [facility] Start: 01-04-2023 End: 01-04-[address] Divya Wilkerson Work Phone: [facility] Work Phone: Start: 01-04-2023 End: 01-04-[address] Divya Wilkerson Work Phone: [facility], Specimen Start: 01-04-2023 End: 01-04-[address] Divya Wilkerson Work Phone: [facility] Start: 11-10-2022 End: 11-10-2022 ambulatory [facility] Work Phone: Start: 11-10-2022 End: 11-10-2022 Patient encounter procedure [facility] Start: 08-14-2022 End: 08-14-2022 ambulatory [facility] Work Phone: Start: 08-14-2022 End: 08-14-2022 Patient encounter procedure [facility], [facility] Procedures Date Procedure Procedure Detail Performing Clinician Start: 01-13-[address] Divya Wilkerson Start: 11-10-2022 Screening mammography Start: 08-14-2022 CT of abdomen with contrast H/O: surgery H/O bilateral salpingectomy Plan of Treatment Date Care Activity Detail Author Start: 05-18-2024 Urine microalbumin profile DTaP,Tdap,Td Vaccine (4 - Td or Tdap) [facility] Start: 01-06-2024 Patient referral [facility] Work Phone: Start: 05-28-2023 Covid-19 Vaccine ( season) Covid-19 Vaccine () [facility] Start: 01-09-2023 Vitamin D, 1,25-dihy droxy measurement [facility] Start: 01-04-2023 Liquid based cervica l cytology screening [facility] Start: 2019 Screening for malign ant neoplasm of breast Mammogram Screening [facility] Start: 01-25-2015 Screening for malign ant neoplasm of cervix Pap Testing [facility] Start: 2009 Screening for malign ant neoplasm of cervix HPV Testing [facility] Start: 1997 Hepatitis C screening Hepatitis C Sc reening [facility] Start: 1997 HIV screening HIV Screening [facility] Start: 1979 Hepatitis B Vaccine (1 of 3 - 3-dose series) Hepatitis B Vaccine (1 of 3 - 3-dose series) [facility] Path report.final Dx Spec [facility] Patient referral [facility] Work Phone: [facility] Immunizations Immunization Date Immunization Notes Care Provider Archana carmen 09-28-2012 influenza virus vaccine, unspecified formulation Calvin Lutz RACK ROOM WORKER.[facility] Work Phone: [facility] Work Phone: 04-01-2007 tetanus and diphther ia toxoids, adsorbed, preservative free, for adult use (2 Lf of tetanus toxoid and 2 Lf of diphtheria toxoid) Calvin Lutz RACK ROOM WORKER.[facility] Work Phone: [facility] Work Phone: 05-29-1999 diphtheria and tetan us toxoids, adsorbed for pediatric use Calvinbj Lutz RACK ROOM WORKER.[facility] Work Phone: [facility] Work Phone: 05-29-1999 measles, mumps and rubella virus vaccine Calvin Lutz RACK ROOM WORKER.[facility] Work Phone: [facility] Work Phone: 07-29-1998 influenza virus vaccine, unspecified formulation Calvin Lutz RACK ROOM WORKER.[facility] Work Phone: [facility] Work Phone: Payers Date Payer Category Payer Private Health Insurance [id number] 2024 Worker's Compensation [id number] 2024 Self-pay [id number] 2021 Unknown [id number] 2021 Unknown MMO MMO SUPERMED PPO [id number] 2021-[facility] [phone] [address] [place] [address] PPO [id number] 2012 Unknown CAM [id number] Unknown [id number]. 903 Unknown [id number] 2.16.840.1.748485.3.579.2. 903 Unknown [id number] 2.16.840.1.034683.3.579.2. 462 Unknown [id number] 2.16.840.1.815335.3.579.2. 462 Unknown [id number] 2.16.840.1.884420.3.579.2. 462 Unknown [id number] 2.16.840.1.775140.3.579.2. 462 Unknown [id number] 2.16.840.1.518934.3.579.2. 462 Unknown [id number] 2.16.840.1.458850.3.579.2. 462 Unknown [id number] 2.16.840.1.582840.3.579.2. 462 Unknown [id number] 2.16.840.1.769691.3.579.2. 462 Unknown [id number] 2.16.840.1.824209.3.579.2. 462 Unknown [id number] 2.16.840.1.805433.3.579.2. 462 Unknown [id number] 2.16.840.1.353852.3.579.2. 462 Unknown [id number] 2.16.840.1.707359.3.579.2. 462 Unknown [id number] 2.16.840.1.201976.3.579.2. 462 Unknown [id number] 2.16.840.1.250071.3.579.2. 462 Unknown [id number] 2..840.1.974490.3.579.2. 462 Unknown [id number] 2.840.1.991211.3.579.2. 462 Unknown [id number] [id number]. 462 Social History Date Type Detail Facility Start: 01-12-2022 End: 01-06-2024 Tobacco smoking status NHIS Unknown if ever smoked [facility] Start: 09-04-2013 None [facility] Start: 02-24-2015 Spouse/ Signif icant Other [facility] Start: 1980 Sex Assigned At Female [facility] Start: 09-12-2023 [facility] End: 07-30-2007 History of tobacco use Cigarette Smoker [facility] Start: 09-12-2023 Cigarettes smoked current (pack per day) - Reported 1 [facility] Start: 09-12-2023 Tobacco use and exposure Smokeless tobacco non-user [facility] Start: 09-12-2023 Alcohol intake Current drinke r of alcohol (finding) [facility] Start: 09-12-2023 Tobacco use panel [facility] Start: 09-12-2023 Tobacco Comment started 14 yo [facility] Start: 1980 Sex Assigned At Not on file [facility] Start: 04-09-2022 Gender identity Identifies as female gender (finding) [facility] Start: 04-09-2022 Sexual orientation Heterosexual (fin ding) [facility] Clinical Note 01-06-2024 Note Date & Type Note Facility 01-06-2024 Note [facility] Pap Smear Specimen Adequacy January 06, 2024 11:59pm Comment . Satisfactory for evaluation. No endocervical component is identified. Comment on above: Satisfactory for dena luation. No endocervical component is identified. Clinical Note 01-06-2024 Note Date & Type Note Facility 01-06-2024 Note [facility] Pap Smear Specimen Adequacy January 06, 2024 11:59pm Comment . Satisfactory for evaluation. No endocervical component is identified. Comment on above: Satisfactory for dena luation. No endocervical component is identified. Progress note 09-12-2023 Note Date & Type Note Facility 09-12-2023 Note HNO ID: [id number] Author: Calvin Lutz APRN.FAMILY INDEPENDENCE CASE MANAGER Service: ? Author Type: Nurse Practitioner Type: [...] [599.0] since childhood has had vcug in [place]; results unknown Tobacco use disorder age 14 PAST SURGICAL HISTORY Procedure Laterality Date COLONOSCOPY FLX DX W/COLLJ SPEC WHEN PFRMD 11/23/08 [facility], rectal bleeding, colitis EXTRACTION, ERUPTED TOOTH OR EXPOSED ROOT (ELEVATION AND/OR FORCEPS REMOVAL) 1991 +/- wisdom teeth, gas LIG/TRNSXJ FLP TUBE ABDL/VAG APPR UNI/BI April 22, 2004 ([place]) SKIN BX, 1 LESION 01/2004 ([place]) Left posterior shoulder, wart/martha K ALLERGIES Garlic [...] Onset other (carcinoid syndrome [Other]) Mother (age [id number]) other (celiac disease [Other]) Mother colon cancer [...] reactive to lig (more content not included)... [facility] History of Present illness Narrative 09-12-2023 Calvin Lutz, JANE.[facility] - 09/12/2023 2:25 PM EST Note Date [...] [599.0] since childhood has had vcug in [place]; results unknown Tobacco use disorder age 14 PAST SURGICAL HISTORY Procedure Laterality Date COLONOSCOPY FLX DX W/COLLJ SPEC WHEN PFRMD 11/23/08 [facility], rectal bleeding, colitis EXTRACTION, ERUPTED TOOTH OR EXPOSED ROOT (ELEVATION AND/OR FORCEPS REMOVAL) 1991 +/- wisdom teeth, gas LIG/TRNSXJ FLP TUBE ABDL/VAG APPR UNI/BI April 22, 2004 ([place]) SKIN BX, 1 LESION 01/2004 ([place]) Left posterior shoulder, wart/martha K ALLERGIES Garlic [...] Onset other (carcinoid syndrome [Other]) Mother (age [id number]) other (celiac disease [Other]) Mother colon cancer [...] of care. This note was generated using [employer] software. It may contain errors in wording, punctuation, or spelling. Calvin Lutz APRN.FAMILY INDEPENDENCE CASE MANAGER documented in this encounter [facility] Clinical Note 01-04-2023 Note Date & Type Note Facility 01-04-2023 Note [facility] Pap Smear Specimen Adequacy January 04, 2023 5:12pm Comment . Satisfactory for evaluation. Comment on above: Satisfactory for dena luation. History of Past illness Narrative 07-01-2016 Note Date & Type Note Facility 07-01-2016 History of Past i llness Narrative Problem Noted Date Diagnosed Date Resolved Date Urinary tract infection, site not specified 07/01/2016 Overview: recurrent, since age 5; last u/s 1998 +/- Anorexia nervosa 11/17/2006 Herpetic gingivostomatitis 0 05/05/2012 Herpes zoster without mention of complication 11/17/2006 Bipolar I disorder, most rec ent episode (or current) unspecified 11/17/2006 documented as of this encounter (statuses as of 09/12/2023) [facility] Evaluation note Note Date & Type Note Facility Evaluation note No assessment information availa ble [facility] Work Phone: Evaluation note Note Date & Type Note Facility Evaluation note Diagnosis Onset Date Abnormal Pap smear of cervix acute Encounter for routine gyneco logical examination noneactive [facility] Work Phone: Evaluation note Note Date & Type Note Facility Evaluation note Diagnosis Eustachian tube dysfunction, bilateral- Primary documented in this encounter [facility] Evaluation note Note Date & Type Note Facility Evaluation note Diagnosis Onset Date Abnormal Pap smear of cervix acute HPV test positive acute Encounter for routine gyneco logical examination noneactive [facility] Work Phone: Chief Complaint and Reason for Visit Chief Complaint ADRENAL PROTOCOL Chief Complaint ADRENAL PROTOCOL SCREENING Chief Complaint SCREENING Annual (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) Reason for Visit Abnormal Pap smear o f cervix Encounter for routine gynecological examination Chief Complaint Annual (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 Divya Wilkerson MD Family Provider Active VIVIANA Kellogg Primary Care Provider Active Team Status: Inactive Member Role Status Dates VIVIANA Kellogg Primary Care Provide r, Attending Provider, Referring Provider Active Team Status: Inactive Member Role Status Dates Dr. Divya Wilkerson MD Referring Provider Active Dr. Rosa Isela Downing MD Attending Provider Active VIVIANA Kellogg Primary Care Provider Active Team Status: Inactive [...] or prosecute any alcohol or drug abuse patient.[facility] Reason for Visit (unrecogniz ed section and content) Reason Comments Ear Pain R eat pain x 3 weeks throbbing and ringing INFORMATION SOURCE (unrecogn ized section and content) DATE CREATED AUTHOR 09/13/2023 [facility] DATE CREATED AUTHOR AUTHOR'S ORGANIZ ATION 07/11/2024 [facility] DATE CREATED AUTHOR AUTHOR'S ORGANIZ ATION 04/25/2025 [facility] FOR RECORDS PERTAINING TO PATIENTS WHO [...] BE BASED ON THE PRIMARY CLINICAL RECORDS. [facility]. provides no warranty or guarantee of the accuracy or completeness of information in this document.
[2025-04-25] MEDS: Lactated Ringers 1,000 ML 15 ML IV (06:40)
--- NOTE | 2025-04-25 06:56 | PCM.PRE.AN2 ---
ASA Classification* ASA Classification ASA Classification: 2 Assessment & Plan Anesthesia* Anesthesia Assessment Anesthesia Assessment: Discussed sedation and/or anesthesia options, risks, benefits, and alternatives with patient/parents/legal guardian/POA. Questions invited. The patient/parents/legal guardian/POA seems to understand and agrees to proceed with anesthesia plan. Reviewed the physical assessment, medical history, allergy history and patient home medications list prior to surgery/procedure/anesthetic and documented any changes. Performed airway and anesthesia risk assessments. Anesthesia Type Anesthesia Type: General (MAC w General back-up) and MAC History Source History Obtained from:: Patient and Chart Anesthesia Focused Assessment* Temperature: 97.2 F Pulse Rate: 68 Blood Pressure: 117/54 Respiratory Rate: 16 Pulse Ox: 99 Airway Assessment Mouth opens: >3 cm Mallampati Score: I Labs Anesthesia Preop lab: CBC WBC 7.0 K/mm3 (4.4-11.0) 04/18/25 08:32 04/18/25 RBC 4.24 M/mm3 (4.2-5.4) 04/18/25 08:32 04/18/25 Hgb 12.7 g/dL (12.0-15.0) 04/18/25 08:32 04/18/25 Hct 38.7 % (37-47) 04/18/25 08:32 04/18/25 Plt Count 264 K/mm3 (150-450) 04/18/25 08:32 04/18/25 CHEMISTRY Potassium 4.0 mmol/L (3.3-5.1) 04/18/25 08:32 04/18/25 Sodium 138 mmol/L (133-145) 04/18/25 08:32 04/18/25 Magnesium 2.3 mg/dL (1.6-2.6) 11/22/21 10:21 11/22/21 BUN 10 mg/dL (4-19) 04/18/25 08:32 04/18/25 Creatinine 0.78 mg/dL (0.70-1.20) 04/18/25 08:32 04/18/25 Glucose 91 mg/dL (70-99) 04/18/25 08:32 04/18/25 POC Glucose 97 mg/dL (70-110) 11/25/21 06:08 11/25/21 TSH 1.14 uIU/mL (0.358-3.74) 01/09/23 10:10 01/09/23 COAG PT 13.0 SECONDS (11.7-14.9) 07/31/15 12:25 07/31/15 Urine Test Negative Negative 11/25/21 05:52 11/25/21 Pre-Assessment Diagnosis/Proposed Procedure Planned Operative Procedure(s): RIGHT ENDOSCOPIC CARPAL TUNNEL RELEASE Anesthesia History 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 When Was Last Pacemaker Check QUESTION #4 FULL TEXT: You/Your Family Experience fever (hyperthermia) with Anesthesia Last Oral Intake Last Oral intake: Last Oral Intake NPO since 19:00 04/25/25 06:34 Meds taken in AM with sips of Yes 04/25/25 06:34 water? Meds patient instructed to BUPROPRION 04/25/25 06:34 take am of surgery PAROXETINE PONV PONV - dental hygiene instructor: PONV - dental hygiene instructor Female Yes 04/11/25 10:54 HX of Motion Sickness No 04/11/25 10:54 HX of N/V After Surgery No 04/11/25 10:54 Non-Smoker No 04/11/25 10:54 Duration of Surgery greater No 04/11/25 10:54 than 60 minutes Number of Risk Factors 1 04/11/25 10:54 PONV Score Low Risk 04/11/25 10:54 Height & Weight Height & Weight: Anesthesia: Height & Weight Height 4 ft 11 in 04/25/25 06:34 Weight: 65 kg 04/25/25 06:34 Body Mass Index (BMI) 28.9 04/25/25 06:34 Respiratory Assessment Respiratory Assessment - dental hygiene instructor: Respiratory Tract Infection Hx - dental hygiene instructor Hx Respiratory Tract Infection No 04/11/25 10:54 STOP Sleep Apnea STOP Sleep Apnea - dental hygiene instructor: STOP Sleep Apnea - dental hygiene instructor Hx Hypertension No 04/11/25 10:54 Hx Sleep Apnea No 04/11/25 10:54 CPAP No 04/11/25 10:54 BIPAP No 04/11/25 10:54 Do you snore loudly (louder No 04/11/25 10:54 than talking or can be heard Do you often feel tired/ No 04/11/25 10:54 fatigued/ sleepy during daytime? Has anyone observed you stop No 04/11/25 10:54 breathing during sleep? STOP Results Negative 04/11/25 10:54 QUESTION #5 FULL TEXT : Do you snore loudly (louder than talking or can be heard through closed doors)? Tobacco Use History Tobacco Use History - dental hygiene instructor: Tobacco Use History - dental hygiene instructor Tobacco Use Smoking Status Current every day smoker 04/11/25 10:54 Hx Tobacco Use Yes 04/11/25 10:54 Years Smoking Packs Smoked per Day Smoking Cessation Date was within the last 15 years Hx Smoking Cessation Date Hx Smoking Cessation No 04/11/25 10:54 Counseling Hematologic Medial History Hematologic Hx - dental hygiene instructor: Hematologic Medical Hx - pediatric oncologist Hx of Blood Transfusion No 04/11/25 10:54 Hx of Transfusion in last 3 No 04/11/25 10:54 Months Date of Last Transfusion (if within last 3 months) Ever experience any problems No 04/11/25 10:54 with transfusion(s)? Specify any problems Hx of Preganancy in last 3 No 04/11/25 10:54 Months Nurse Filling Out Transfusion DSCHRIBER 04/11/25 10:54 & Questions: Date: 04/11/25 04/11/25 10:54 Time: 10:55 04/11/25 10:54 Patient unable to answer at this time (ie. confused, unrespo /Reproduction History /Reproductive History - dental hygiene instructor: /Reproductive Hx- dental hygiene instructor Hx Now Gestational Age (in weeks): EDC: Hx Hx Para Hx Section SAB No 03/29/25 12:57 Active Medications Active Medications: Current Medications Generic Name Dose Route Start Last Admin Trade Name Freq PRN Reason Stop Dose Admin Cefazolin Sodium 2 gm/ Sodium 110 mls @ 200 mls/hr 04/25/25 10:00 Chloride IV 04/25/25 10:32 INTRAOP ONE Lactated Ringer's 1,000 mls @ 15 mls/hr 04/25/25 06:15 04/25/25 06:40 IV 15 mls/hr .Q48H RINA Administration PFSH Medical History (Updated 04/11/25 @ 10:58 by Evie Paredes) Marijuana use Restless legs Bilateral carpal tunnel syndrome Left carpal tunnel syndrome Ren blood in stool Left lateral epicondylitis Right shoulder pain Depression Alcohol use Smoker History of echocardiogram Abnormal Pap smear of cervix Anxiety Home Medications ?Medication ?Instructions ?Recorded ?Last Taken ?Type bupropion HCl 300 mg 24 hr tablet, 300 mg PO DAILY 01/05/25 04/25/25 History extended release paroxetine HCl 20 mg tablet 20 mg PO DAILY 01/05/25 04/25/25 History bupropion HCl 150 mg 24 hr tablet, 150 mg PO DAILY 04/11/25 04/25/25 History extended release dupilumab 200 mg/1.14 mL 200 mg subcut .Q2WEEK 04/11/25 04/15/25 History subcutaneous syringe (Dupixent) paroxetine HCl 40 mg tablet 40 mg PO DAILY 04/11/25 04/25/25 History Allergy/AdvReac Type Severity Reaction Status Date / Time garlic Allergy Swelling Verified 04/11/25 10:51 Family History Mother Colon cancer Grandmother Kidney disease Surgical History (Updated 04/11/25 @ 10:58 by Evie Paredes) H/O bilateral salpingectomy S/P vaginal hysterectomy Hx of colonoscopy Hx of bladder repair surgery H/O tubal ligation (~03/2004) H/O dilation and curettage (~05/24/14) H/O LEEP (~01/29/09) Social History adopted: No household members: family housing: house number of children: 3 current occupational status: employed 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
--- NOTE | 2025-04-25 07:08 | PCM.HP.STD ---
HPI - General HPI Narrative MARANDA FLOREZ, is a 44 F who presents for right endoscopic carpal tunnel release. no change to h and p. right wrist marked. rab, post op instructions discussed. ok to proceed. MR#: [id number] Acct: [id number] Name: MARANDA FLOREZ Rep #: [id number] : 1980 Provider: Dr. Rusty Ko MD Age/Sex: 44/F Location: [facility] [place].[facility] Status: Signed Intake Vital Signs 12/21/2507:08 03/29/2512:55 Height 4 ft 11 in 4 ft 11 in Weight: 152 lb 8 oz BMI 30.8 BP 118/74 Intake Visit Reasons: LEFT ARM Chief Complaint: MRI and EMG Review Accompanied by: Self Is patient in pain?: No Allergies garlic Allergy (Verified 04/02/25 13:35) Swelling Medications ?Medication ?Instructions ?Recorded ?Confirmed ?Type epinephrine 0.3 mg/0.3 mL 0.3 mg IM PRN PRN Anaphylaxis 09/04/13 04/02/25 History injection, auto-injector bupropion HCl 300 mg 24 hr tablet, 300 mg PO DAILY 01/05/25 04/02/25 History extended release paroxetine HCl 20 mg tablet 20 mg PO DAILY 01/05/25 04/02/25 History PFSH Medical History Bilateral carpal tunnel syndrome Left carpal tunnel syndrome History of GI bleed Ren blood in stool Left lateral epicondylitis Right shoulder pain Wears contact lenses Depression Alcohol use Low iron Smoker History of echocardiogram Abnormal Pap smear of cervix Anxiety Surgical History H/O bilateral salpingectomy S/P vaginal hysterectomy Hx of colonoscopy Hx of bladder repair surgery H/O tubal ligation (~03/2004) H/O dilation and curettage (~05/24/14) H/O LEEP (~01/29/09) Family History Mother Colon cancerGrandmother Kidney disease Social History adopted: No household members: family housing: house number of children: 3 current occupational status: employed 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 Rusty Ko MD 04/02/25 7114. Part of today?s visit was documented by [ ], acting as scribe. MARANDA FLOREZ is a 44 year old F here today for follow-up for bilateral upper extremity nerve conduction studies to assess for bilateral carpal tunnel syndrome. This is worse on the right side. The patient has tried nighttime splinting as well as other exercises for the upper extremity. Worse over time or bothersome to the patient. Supplemental Info [facility]Neurology [address] [place] [address] MR#: [id number] Acct: [id number] Name: MARANDA FLOREZ Rep #: [id number] : 1980 44 From: Yobany Donaldson MD Referring Dr: Rusty Ko MD Status: REG CLI Location: [facility] Date: 03/20/25 Sex: F C NCS and/or EMG Patient Report Ordering Doctor: Rusty Ko DATE OF SERVICE: 03/20/25 Clinical Summary: 44 year old female patient with symptoms of numbness, tingling, and pain in her hands. Nerve Conduction Studies Summary: Nerve conduction studies were performed in the bilateral upper extremities. The median-D2 SNAP distal latency was prolonged bilaterally with reduced amplitude on the right side. The right median-APB CMAP distal latency was prolonged. Needle Examination Summary: Needle examination of select muscles of the bilateral upper extremities was normal. Impression: This is an abnormal study. 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 2) Mild, left median mononeuropathy at the wrist (carpal tunnel syndrome), with sensory fiber demyelination Multi Select Codes Neurology Neurology Interp Codes: 55587-05 Musc test done w/n test comp (interp) (2) and 18226-67 Nrv cndj test 11-12 studies (interp) Coding Level of Care Code Off vis,est,level 4 Diagnoses Bilateral carpal tunnel syndrome G56.03 Assessment and Plan Assessment and Plan (1) Bilateral carpal tunnel syndrome: Status: Acute Plan: 44-year-old female with bilateral carpal tunnel syndrome. Per NCS, Moderate to severe, right median mononeuropathy at the wrist (carpal tunnel syndrome), and mild, left median mononeuropathy at the wrist (carpal tunnel syndrome). Pros and cons risks and benefits of continued nonoperative management versus surgery were discussed as well as the comparison between open or endoscopic carpal tunnel release possibly higher rates of incomplete release with endoscopic but typically quicker return to function lower infection risk and other benefits associated with more minimally invasive surgery. The patient understands wishes to go ahead with right endoscopic carpal tunnel release. Has depression and anxiety which may increase risks of surgery. Pros and cons risks and benefits were discussed with the patient including but not limited to infection, pain, stiffness, bleeding, damage to surrounding structures, neurovascular injury, recurrence or retear, failure or wear of hardware or fixation, instability, fracture, deep vein thrombosis and pulmonary embolism, anesthetic risks, , patient dissatisfaction, need for further surgery and other risks. Patient understood and wished to proceed with surgery, and signed the informed consent documentation. Ortho Exam General General: Yes no acute distress Neurologic: Yes alert and Yes oriented x3 Psychologic: Yes reasonable and appropriate Right Wrist/Hand Skin/Wound: Yes CDI, No Swelling, No Ecchymosis and Yes nail intact Left Wrist/Hand Skin/Wound: No Swelling and No Ecchymosis [facility] Medical History (Updated 04/11/25 @ 10:58 by Evie Paredes) Marijuana use Restless legs Bilateral carpal tunnel syndrome Left carpal tunnel syndrome Ren blood in stool Left lateral epicondylitis Right shoulder pain Depression Alcohol use Smoker History of echocardiogram Abnormal Pap smear of cervix Anxiety Home Medications ?Medication ?Instructions ?Recorded ?Last Taken ?Type bupropion HCl 300 mg 24 hr tablet, 300 mg PO DAILY 01/05/25 04/25/25 History extended release paroxetine HCl 20 mg tablet 20 mg PO DAILY 01/05/25 04/25/25 History bupropion HCl 150 mg 24 hr tablet, 150 mg PO DAILY 04/11/25 04/25/25 History extended release dupilumab 200 mg/1.14 mL 200 mg subcut .Q2WEEK 04/11/25 04/15/25 History subcutaneous syringe (Dupixent) paroxetine HCl 40 mg tablet 40 mg PO DAILY 04/11/25 04/25/25 History Allergy/AdvReac Type Severity Reaction Status Date / Time garlic Allergy Swelling Verified 04/11/25 10:51 Family History Mother Colon cancer Grandmother Kidney disease Surgical History (Updated 04/11/25 @ 10:58 by Evie Paredes) H/O bilateral salpingectomy S/P vaginal hysterectomy Hx of colonoscopy Hx of bladder repair surgery H/O tubal ligation (~03/2004) H/O dilation and curettage (~05/24/14) H/O LEEP (~01/29/09) Social History adopted: No household members: family housing: house number of children: 3 current occupational status: employed 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 Smoking Status: Current every day smoker tobacco type: cigarettes alcohol intake: current alcohol intake frequency: a few times a week details: social substance use type: does not use caffeine: Yes what type of physical activity do you participate in: bicycling and weight training seatbelt use: always do you feel safe at home: Yes additional social history: Patient works for [email or web address] Vital Signs Vital Signs Vital Signs: 04/25/25 06:34 04/25/25 06:34 04/25/25 06:58 Temperature 97.2 F L 97.2 F L Temperature Source Temporal Pulse Rate 68 68 Respiratory Rate 16 16 Respiratory Pattern Normal Blood Pressure 117/54 L 117/54 L Blood Pressure Mean 75 Blood Pressure Source Monitor Blood Pressure Position Sitting Blood Pressure Location Left Arm Pulse Ox 99 99 Oxygen Delivery Method Room Air Weight Weight: 143 lb 4.807 oz Body Mass Index (BMI) 28.9
--- NOTE | 2025-04-25 08:11 | OP.PCM_ITS ---
Problems Associated Problem List Diagnoses (1) Left carpal tunnel syndrome: Procedures Musculoskeletal 20xxx-29xxx: Other Procedure See Report Operative Report (Standard) Operative Information Date of Procedure: 04/25/25 Pre-Operative Diagnosis: right carpal tunnel syndrome Post-Operative Diagnosis: same Surgery/Procedure Performed: right endoscopic carpal tunnel release jewelry making instructor: No Type of Anesthesia: General and Local RN Documented Start/Stop Times: Operation Date: 04/25/25 07:30 Case Time Into Pre-Op 04/25/25 06:08 Out of Pre-Op 04/25/25 07:31 Anesthesia Start 04/25/25 07:34 Into Room 04/25/25 07:34 Procedure Start 04/25/25 07:48 Procedure End 04/25/25 08:09 Procedure Start Time: 07:48 Procedure Stop Time: 08:09 Select all DRAINS/GRAFTS/IMPLANTS that apply: None Estimated Blood Loss: 10 Specimen collected: No Description of surgery: Patient brought to the operating room theater. Placed upon on the table. 2g iv ancef before the start of the case. GA induced by the anesthetic team. Patient placed supine on the table all bony prominences padded. SCDs on the legs. Hand table used. Tourniquet applied properly padded to the upper extremity. Upper extremity prepped and draped in the usual sterile fashion with chlorhexidine- based prep solution allowing over 3 minutes drying time prior to draping. Preoperative timeout performed to confirm the site patient and the surgery. Began by elevating the limb and inflated the tourniquet to 250 mmHg. I used the Arthex center line endoscopic carpal tunnel kit technique. 2cc 0.25% bupivicaine for local anesthesia. I made a transverse 2 cm incision in line with the? transverse wrist crease.? This was in line with the fourth digit.? I carried the dissection down through skin and subcutaneous tissue achieved meticulous hemostasis. Just ulnar to palmaris tendon.? I incised the antebrachial fascia.? I passed sequential dilators into the carpal tunnel along the radial border of the Guyon's canal aiming for the fourth digit with the hand in extension.? I used a synovial elevator to identify the transverse fibers of the transverse carpal tunnel ligament.? Passed the scope into the carpal tunnel. Once I had identified the full proximal and distal extent of the ligament I fully released the ligament under direct visualization by deploying the blade and slowly withdrawing the scope made sequential passes until I no longer felt tension as well as the entire extent of the ligament was released under direct visualization.? Sounded the tunnel with jackson tenotomy scissors, complete release, no bands. Arthroscope light was more visible through the skin. More room for the large dilator. Release the forearm fascia also. Pictures taken and saved. Wounds thoroughly irrigated.? Tourniquet let down prior to end of the case and meticulous hemostasis achieved.? Thorough irrigation.? ? Incisions closed with dermabond and 3-0 monocryl. ?Then adaptic 4x4 gauze and cloth tape. Patient woken up,? transferred off the operating room table and taken to p ostanesthetic care unit in stable condition. All sponge needle instrument counts were correct no complications.?Plan for the patient to be discharged home according to day surgery criteria when they are comfortable. Follow-up in the office in 2 days time. Gentle ROM hand and elbow no heavy lifting. Recommend wrist brace 2 weeks. cpt 71971 Surgical Findings: as above Complications Complications: No Admit VTE Documentation VTE Present on Admission: No VTE Mechan Device Prophylaxis: SCD's VTE Pharm Prophylaxis ordered?: No Reason prophylaxis not ordered: Treatment Not Indicated
--- NOTE | 2025-04-25 08:13 | EX.PCM.DISCH ---
Discharge Instructions Diet Discharge Diet: No restrictions Activity Discharge Activity: Return to Normal Activity Ice area for (Minutes): 10 Lifting Restrictions: no pushing pulling, repetitive ROM Keep extremity elevated above heart level: Operative Extremity Additional Activity Instructions:: wear wrist brace 2 weeks post op Dressing / Incision Call your doctor if your incision/area has: Continuous Slow Oozing, Sudden Increased Bleeding, Increased Pain/ Swelling, Increased Redness, Foul Smelling Discharge and Swelling at the incision site Call your doctor if you observe: Fever of 101 or Higher, Coldness, Increased Pain and Numbness or Tingling Change Dressing in: leave in place till F/U Cleanse incision/area with: Do not get Incision Wet Follow Up Care Please Follow Up With: Rusty Ko MD When: 2 days or within 2 weeks Test Results: Test results from this visit will be discussed in further detail at your follow-up appointment, if applicable. Discharge Plan Admission Attending Provider: Rusty Ko Primary Care Provider: Ursula Georges Instructions Patient Instructions: Carpal Tunnel Release Surgery Print Language: Korean Discharge Orders/Prescriptions Prescriptions: No Action bupropion HCl 150 mg tablet extended release 24 hr 150 mg PO DAILY paroxetine HCl 40 mg tablet 40 mg PO DAILY Dupixent Syringe 200 mg/1.14 mL syringe 200 mg subcut .Q2WEEK paroxetine HCl 20 mg tablet 20 mg PO DAILY bupropion HCl 300 mg tablet extended release 24 hr 300 mg PO DAILY Referrals / Follow Up: Rusty Ko MD [Med Staff - Active Staff] - Ursula Georges, [employer] [Primary Care Provider] - Disposition Disposition (needs filled in before D/C Order can be placed): Home, Self Care
--- NOTE | 2025-04-25 10:08 | PCM.POST.ANE ---
Anesthesia: Postop Eval I Current Vital Signs Temperature: 97.8 F Pulse Rate: 58 Blood Pressure: 95/52 Respiratory Rate: 14 Pulse Ox: 96 Assessment Airway patent: Yes Spontaneous unlabored respirations: Yes nausea: No Vomiting: No Anesthesia Complication: No Fluid Hydration Crystalloid volume administer (ml): 400 Total IV fluid infused: 400 Progress Note Anesthesia document: Postop Eval 1 completed: Yes
== END 2025-04-25 09:52 | disposition home or self-care (01) ==
LOC: SDC 05:57 → AC 06:00
PROVIDERS: PCP Nurse Practitioner Family; Referring Provider Orthopaedic Surgery Sports Medicine; Visit Provider Orthopaedic Surgery Sports Medicine
PROC: (CPT 29848; principal; 2025-04-25 07:15)
DX: G56.01 Carpal tunnel syndrome, right upper limb (principal); F17.210 Nicotine dependence, cigarettes, uncomplicated
CPT/HCPCS: 29848; 01810; J2405